=== PATIENT | male | born 1965 | race Caucasian/White ===

== ENCOUNTER 2020-01-13 08:49 | Outpatient (REF) | payer OTHER, SELFPAY ==
[2020-01-13 09:59] LABS: MANUAL DIFF FLAG NO
[2020-01-13 10:11] LABS: Basophils Percent Auto 0.6 % (0-2); Eosinophils Absolute Auto 0.1 X10*3/uL (0.0-0.4); Eosinophils Percent Auto 2.2 % (0-4); Hematocrit 40.9 % (42-52); Hemoglobin 14.2 g/dl (14.0-18.0); Imm Gran Abs Auto 0.01 X10*3/uL (0.00-0.03); Imm Gran Pct Auto 0.2 % (0.0-0.4); Lymphocytes Absolute Auto 1.9 X10*3/uL (1.2-4.9); Lymphocytes Percent Auto 38.2 % (20-40); Mean Corpuscular HGB Conc 34.7 g/dl (31.0-36.0); Mean Corpuscular Hemoglobin 32.2 pg (27.0-33.0); Mean Corpuscular Volume 92.7 fL (80-98); Mean Platelet Volume 10.6 fL (9.4-12.4); Monocytes Absolute Auto 0.5 X10*3/uL (0.1-1.2); Monocytes Percent Auto 9.6 % (2-11); Neutrophils Absolute Auto 2.4 X10*3/uL (2.0-8.3); Neutrophils Percent Auto 49.2 % (45-73); Platelet Count 229 X10*3/uL (160-400); Red Blood Count 4.41 X10*6/uL (4.60-5.80); Red Cell Distribution Width 11.3 % (11.0-16.0); White Blood Count 4.9 X10*3/uL (4.8-10.8)
[2020-01-13 10:23] LABS: Glucose Urine UA NEG (NEG); Leukocyte Esterase Urine NEG (NEG); Nitrite Urine NEG (NEG); Specific Gravity - Urine 1.025 (1.005-1.025); Urine Blood NEG (NEG); Urine Ketones NEG (NEG); Urine Protein NEG (NEG-TRACE)
[2020-01-13 10:30] LABS: Appearance Urine HAZY; Color Urine YELLOW; UACC Culture Trigger NO
[2020-01-13 10:45] LABS: Alanine Aminotransferase 28 U/L (0-40); Albumin Level 4.2 g/dL (3.5-5.0); Alkaline Phosphatase 55 U/L (39-117); Anion Gap 13 (12-20); Aspartate Amino Transferase 22 U/L (5-37); Bilirubin Total 0.9 mg/dL (0.0-1.0); Blood Urea Nitrogen 16 mg/dL (9-16); Calcium 8.9 mg/dL (8.4-10.2); Carbon Dioxide 24 mmol/L (22-29); Chloride 105 mmol/L (96-108); Cholesterol 160 mg/dL; Estimated Glomerular Filt Rate > 60; Glucose Fasting 106 mg/dL (60-99); HDL Cholesterol 46 mg/dL; LDL Cholesterol Calculated 96 mg/dl; Potassium 4.3 mmol/l (3.3-5.1); Sodium 138 mmol/L (135-145); Triglycerides 90 mg/dL
[2020-01-13 10:56] LABS: Creatinine Urine 378.57 mg/dL
[2020-01-13 11:12] LABS: TSH reflex Free T4 0.98 mIU/mL (0.32-4.0)
[2020-01-13 11:44] LABS: Prostate Specific Antigen Scr 1.12 ng/mL (<0.05-4.0)
[2020-01-13 12:01] LABS: Mucus Urine 3+ /LPF; RBC Urine 0 /HPF (0)
== END 2020-01-13 08:50 | disposition home or self-care (01) ==
LOC: HO.LAB 08:49
PROVIDERS: PCP Internal Medicine; Visit Provider Internal Medicine
DX: Z00.00 Encounter for general adult medical examination without abnormal findings (principal); I48.0 Paroxysmal atrial fibrillation; R73.01 Impaired fasting glucose; E78.5 Hyperlipidemia, unspecified; G47.33 Obstructive sleep apnea (adult) (pediatric)
CPT/HCPCS: 36415; 80053; 80061; 81001; 81003; 82043; 84153; 84443; 85025

== ENCOUNTER 2020-05-09 09:02 | Outpatient (REF) | payer OTHER, SELFPAY ==
[2020-05-09 10:09] LABS: MANUAL DIFF FLAG NO
[2020-05-09 10:18] LABS: Basophils Percent Auto 0.4 % (0-2); Eosinophils Absolute Auto 0.1 X10*3/uL (0.0-0.4); Eosinophils Percent Auto 2.1 % (0-4); Hematocrit 40.7 % (42-52); Imm Gran Abs Auto 0.02 X10*3/uL (0.00-0.03); Imm Gran Pct Auto 0.4 % (0.0-0.4); Lymphocytes Absolute Auto 1.9 X10*3/uL (1.2-4.9); Mean Corpuscular HGB Conc 34.4 g/dl (31.0-36.0); Mean Corpuscular Hemoglobin 31.9 pg (27.0-33.0); Mean Corpuscular Volume 92.7 fL (80-98); Mean Platelet Volume 10.1 fL (9.4-12.4); Monocytes Absolute Auto 0.5 X10*3/uL (0.1-1.2); Monocytes Percent Auto 8.4 % (2-11); Neutrophils Absolute Auto 2.8 X10*3/uL (2.0-8.3); Neutrophils Percent Auto 52.7 % (45-73); Platelet Count 235 X10*3/uL (160-400); Red Blood Count 4.39 X10*6/uL (4.60-5.80); Red Cell Distribution Width 11.7 % (11.0-16.0); White Blood Count 5.3 X10*3/uL (4.8-10.8)
[2020-05-09 10:39] LABS: Glucose Urine UA NEG (NEG); Leukocyte Esterase Urine NEG (NEG); Nitrite Urine NEG (NEG); Specific Gravity - Urine 1.025 (1.005-1.025); Urine Blood NEG (NEG); Urine Ketones NEG (NEG); Urine Protein NEG (NEG-TRACE)
[2020-05-09 10:40] LABS: Appearance Urine CLEAR; Color Urine YELLOW
[2020-05-09 10:41] LABS: Alanine Aminotransferase 33 U/L (0-40); Albumin Level 4.2 g/dL (3.5-5.0); Alkaline Phosphatase 52 U/L (39-117); Anion Gap 11 (12-20); Aspartate Amino Transferase 23 U/L (5-37); Bilirubin Total 0.7 mg/dL (0.0-1.0); Blood Urea Nitrogen 14 mg/dL (9-16); Calcium 8.4 mg/dL (8.4-10.2); Carbon Dioxide 26 mmol/L (22-29); Chloride 107 mmol/L (96-108); Cholesterol 168 mg/dL; Estimated Glomerular Filt Rate > 60; Glucose Fasting 105 mg/dL (60-99); HDL Cholesterol 44 mg/dL; LDL Cholesterol Calculated 109 mg/dl; Potassium 4.8 mmol/L (3.3-5.1); Sodium 139 mmol/L (135-145); Total Protein 6.9 g/dL (6.5-8.0); Triglycerides 75 mg/dL
[2020-05-09 11:03] LABS: TSH reflex Free T4 1.26 uIU/mL (0.32-4.0)
== END 2020-05-09 09:03 | disposition home or self-care (01) ==
LOC: HO.LAB 09:02
PROVIDERS: PCP Internal Medicine; Visit Provider Internal Medicine
DX: I48.0 Paroxysmal atrial fibrillation (principal); G47.33 Obstructive sleep apnea (adult) (pediatric); R73.01 Impaired fasting glucose; E78.00 Pure hypercholesterolemia, unspecified; E66.9 Obesity, unspecified
CPT/HCPCS: 36415; 80053; 80061; 81003; 84443; 85025

== ENCOUNTER → 2020-05-31 09:46 | Outpatient (BNVA) | payer OTHER, SELFPAY | PROVIDERS: PCP Internal Medicine; Visit Provider Internal Medicine Cardiovascular Disease | DX: I48.19 Other persistent atrial fibrillation (principal); G47.33 Obstructive sleep apnea (adult) (pediatric) | CPT/HCPCS: 93005 ==

== ENCOUNTER → 2020-07-19 09:26 | Outpatient (REF) | payer OTHER, SELFPAY ==
--- NOTE | 2020-07-19 09:28 | CA_ITS ---
Transthoracic Echocardiogram Patient (Last, First, Middle): Henok Coffey, Gender: Male Date of : 1965 Age: 55 Procedure Date: 07/19/2020 Procedure Type: Transthoracic Echocardiogram Location: OP Height: 177.8 cm Weight: 106.6 kg BSA: 2.24 m2 Heart Rate: bpm BP: 134 / 80 mmHg Helpdesk Administrator: Referring MD: Armando Barton MD Employment Attorney: Armando Barton MD Symptoms: I48.19 - Other persistent atrial fibrillation Study Quality: Fair ECG Rhythm: Atrial Fibrillation Conclusions: - 1. Normal LV systolic function with normal filling pressures 2. Mild biatrial enlargement 3. Normal cardiac valvular Doppler 4. Normal RV systolic pressure 5. No pericardial effusion Findings Procedure Information Contrast agent, definity, is being given per protocol without apparent complications. Left Ventricle Normal left ventricular size, thickness, and systolic function. The visually estimated ejection fraction is between 55-60%. Normal left ventricular filling pressures. Right Ventricle Mildly increased right ventricular cavity size. There is normal right ventricular systolic function. Atria The left atrium is mildly dilated. Interatrial shunt cannot be excluded. The right atrium is mildly dilated. Aortic Valve The aortic valve structure and function is likely normal. There is no aortic valve stenosis. There is no aortic valve regurgitation. Mitral Valve Likely normal mitral valve structure and function. There is trace mitral valve regurgitation. There is no mitral valve stenosis. Pulmonic Valve The pulmonic valve was not well visualized. Tricuspid Valve Likely normal tricuspid valve structure and function. There is trace tricuspid valve regurgitation. The right ventricular systolic pressure is normal. The right ventricular systolic pressure is 20 mmHg. There is no evidence of pulmonary hypertension. Great Vessels All visible segments of the aorta are normal in size. The pulmonary artery was not well visualized. Venous The inferior vena cava is normal in size and collapses greater than 50% with inspiration. Pericardium/Pleural There is no evidence of pericardial effusion. Prior Study Comparison No significant change compared to prior study dated: 03/02/2018. Measurements 2D Linear Measurements IVSd: 1.05 0.6-0.9/0.6-1.0 cm LVIDd: 5.07 3.9-5.3/4.2-5.9 cm LVIDd Index: 2.26 2.4-3.2/2.2-3.1 cm/m2 LVIDs: 3.12 2.0-3.6 cm LVPWd: 1.07 0.7-1.1 cm Ao Root: 3.30 2.1-3.5 cm LA Diam: 4.00 2.7-3.8/3.0-4.0 cm LAIDs Index: 1.79 1.5-2.3 cm/m2 LV Mass: 251.03 67-162/88-224 g LV Mass Index: 112.07 43-95/49-115 g/m2 LVOT Diam: 2.60 3.0+(-)1.3 cm 2D Systolic Function EF 4C: 45.50 >55% EF 2C: 58.70 >55% Mitral Valve MV Pk E: 0.84 MV Decel Time: 190.00 E'Lateral: 15.20 E'Medial: 14.00 E/E' Med: 6.00 E/E' Lat: 5.60 PHT: 56.00 MVA PHT: 3.93 Decel [place]: 4.44 Aortic Valve AoV Pk Willis: 0.99 AoV Mn Willis: 0.74 AoV VTI: 0.23 AoV Pk Grad: 4.00 Aov Mn Grad: 3.00 ABDON Cont.VTI: 3.27 LVOT LVOT Pk Willis: 0.71 LVOT Mn Willis: 0.45 LVOT VTI: 0.14 LVOT Pk Grad: 2.00 LVOT Mn Grad: 1.00 LVOT Diam: 2.60 LVOT Area: 5.31 Diastolic Function MV Pk E: 0.84 E'Medial: 14.00 E/E' Med: 6.00 E' Laterial: 15.20 E/E' Lat: 5.60 Tricuspid Valve TR Pk Willis: 2.07 TR Pk Grad: 17.00 RA Press: 3.00 RVSP: 20.00 Great Vessels Aorta Ao Root-2D: 3.30 2.0-3.7 cm Ao Asc: 3.60 2.1-3.4 cm Pulmonary Valve PV Pk Willis: 0.67 Peak PV Grad: 2.00 Updated in Other Vendor System with Status of Final Armando Barton MD electronically signed on 07/19/2020 2:22:03 PM with status of Final
== END ==
LOC: HO.CARD 09:26
PROVIDERS: Visit Provider Internal Medicine Cardiovascular Disease
DX: I48.19 Other persistent atrial fibrillation (principal)
CPT/HCPCS: 93306; Q9957

== ENCOUNTER 2020-10-05 08:23 | Outpatient (REF) | payer OTHER, SELFPAY ==
[2020-10-05 09:10] LABS: MANUAL DIFF FLAG NO
[2020-10-05 09:34] LABS: Basophils Percent Auto 0.4 % (0-2); Eosinophils Absolute Auto 0.1 X10*3/uL (0.0-0.4); Eosinophils Percent Auto 2.4 % (0-4); Hematocrit 39.9 % (42-52); Hemoglobin 13.7 g/dl (14.0-18.0); Imm Gran Abs Auto 0.01 X10*3/uL (0.00-0.03); Imm Gran Pct Auto 0.2 % (0.0-0.4); Lymphocytes Absolute Auto 1.7 X10*3/uL (1.2-4.9); Mean Corpuscular HGB Conc 34.3 g/dl (31.0-36.0); Mean Corpuscular Volume 93.2 fL (80-98); Mean Platelet Volume 10.4 fL (9.4-12.4); Monocytes Absolute Auto 0.5 X10*3/uL (0.1-1.2); Monocytes Percent Auto 9.1 % (2-11); Neutrophils Absolute Auto 2.8 X10*3/uL (2.0-8.3); Neutrophils Percent Auto 54.9 % (45-73); Platelet Count 225 X10*3/uL (160-400); Red Blood Count 4.28 X10*6/uL (4.60-5.80); Red Cell Distribution Width 11.9 % (11.0-16.0)
[2020-10-05 10:24] LABS: Glucose Urine UA NEG (NEG); Leukocyte Esterase Urine NEG (NEG); Nitrite Urine NEG (NEG); Specific Gravity - Urine >= 1.030 (1.005-1.025); Urine Blood NEG (NEG); Urine Ketones NEG (NEG); Urine Protein TRACE MG/DL (NEG-TRACE)
[2020-10-05 10:25] LABS: Alanine Aminotransferase 30 U/L (0-40); Albumin Level 4.1 g/dL (3.5-5.0); Alkaline Phosphatase 54 U/L (39-117); Anion Gap 12 (12-20); Aspartate Amino Transferase 22 U/L (5-37); Blood Urea Nitrogen 15 mg/dL (9-16); Calcium 9.1 mg/dL (8.4-10.2); Carbon Dioxide 26 mmol/L (22-29); Chloride 108 mmol/L (96-108); Cholesterol 144 mg/dL; Estimated Glomerular Filt Rate > 60; Glucose Fasting 118 mg/dL (60-99); HDL Cholesterol 40 mg/dL; LDL Cholesterol Calculated 89 mg/dl; Potassium 4.5 mmol/L (3.3-5.1); Sodium 141 mmol/L (135-145); Total Protein 6.9 g/dL (6.5-8.0); Triglycerides 77 mg/dL
[2020-10-05 10:28] LABS: Appearance Urine HAZY; Color Urine YELLOW
[2020-10-05 10:35] LABS: Thyroid Stimulating Hormone 1.04 uIU/mL (0.32-4.0)
[2020-10-05 10:36] LABS: TSH reflex Free T4 1.04 uIU/mL (0.32-4.0)
== END 2020-10-05 08:24 | disposition home or self-care (01) ==
LOC: HO.LAB 08:23
PROVIDERS: PCP Internal Medicine; Visit Provider Internal Medicine
DX: G47.33 Obstructive sleep apnea (adult) (pediatric) (principal); I48.0 Paroxysmal atrial fibrillation; E66.9 Obesity, unspecified; E78.00 Pure hypercholesterolemia, unspecified; I48.19 Other persistent atrial fibrillation; R73.01 Impaired fasting glucose
CPT/HCPCS: 36415; 80053; 80061; 81003; 84443; 85025

== ENCOUNTER 2021-04-08 15:15 | Outpatient (REF) | payer OTHER, SELFPAY ==
[2021-04-08 16:00] LABS: Binax Internal Control QC Valid; Binax Now Covid-19 Ag Negative (Negative)
== END 2021-04-08 15:16 | disposition home or self-care (01) ==
LOC: HO.LAB 15:15
PROVIDERS: Visit Provider Internal Medicine
DX: Z20.822 Contact with and (suspected) exposure to COVID-19 (principal)
CPT/HCPCS: C9803

== ENCOUNTER → 2021-04-22 09:45 | Outpatient (BNVA) | payer SELFPAY | PROVIDERS: PCP Internal Medicine; Visit Provider Physician Assistant Medical | DX: Z02.79 Encounter for issue of other medical certificate (principal) ==

== ENCOUNTER → 2021-06-05 09:40 | Outpatient (BNVA) | payer OTHER, SELFPAY | PROVIDERS: PCP Internal Medicine; Referring Provider Internal Medicine; Visit Provider Internal Medicine Cardiovascular Disease | DX: I48.19 Other persistent atrial fibrillation (principal); Z79.899 Other long term (current) drug therapy | CPT/HCPCS: 93005 ==

== ENCOUNTER 2021-06-07 08:41 | Outpatient (REF) | payer OTHER, SELFPAY ==
[2021-06-07 09:19] LABS: MANUAL DIFF FLAG NO
[2021-06-07 09:34] LABS: Basophils Percent Auto 0.4 % (0-2); Eosinophils Absolute Auto 0.1 X10*3/uL (0.0-0.4); Eosinophils Percent Auto 1.5 % (0-4); Hematocrit 40.4 % (42.0-52.0); Imm Gran Abs Auto 0.01 X10*3/uL (0.00-0.03); Imm Gran Pct Auto 0.2 % (0.0-0.4); Lymphocytes Percent Auto 38.1 % (20-40); Mean Corpuscular HGB Conc 34.7 g/dl (31.0-36.0); Mean Corpuscular Volume 92.2 fL (80.0-98.0); Monocytes Absolute Auto 0.5 X10*3/uL (0.1-1.2); Monocytes Percent Auto 8.9 % (2-11); Neutrophils Absolute Auto 2.7 x10*3/uL (2.0-8.3); Neutrophils Percent Auto 50.9 % (45-73); Platelet Count 203 X10*3/uL (160-400); Red Blood Count 4.38 X10*6/uL (4.60-5.80); Red Cell Distribution Width 11.9 % (11.0-16.0); White Blood Count 5.3 X10*3/uL (4.8-10.8)
[2021-06-07 09:36] LABS: Appearance Urine CLEAR; Color Urine YELLOW; Glucose Urine UA NEG (NEG); Leukocyte Esterase Urine NEG (NEG); Nitrite Urine NEG (NEG); PH 5.5 (5.0-8.0); Specific Gravity - Urine >= 1.030 (1.005-1.025); UACC Culture Trigger NO; Urine Blood NEG (NEG); Urine Ketones 5 MG/DL (NEG); Urine Protein 1+ MG/DL (NEG-TRACE)
[2021-06-07 09:56] LABS: Alanine Aminotransferase 30 U/L (0-40); Alkaline Phosphatase 54 U/L (39-117); Anion Gap 14 (12-20); Aspartate Amino Transferase 23 U/L (5-37); Blood Urea Nitrogen 15 mg/dL (9-16); Calcium 9.3 mg/dL (8.4-10.2); Carbon Dioxide 22 mmol/L (22-29); Chloride 107 mmol/L (96-108); Cholesterol 173 mg/dL; Estimated Glomerular Filt Rate > 60; Glucose Fasting 116 mg/dL (60-99); HDL Cholesterol 42 mg/dL; LDL Cholesterol Calculated 108 mg/dl; Potassium 4.5 mmol/L (3.3-5.1); Sodium 138 mmol/L (135-145); Triglycerides 118 mg/dL
[2021-06-07 10:19] LABS: TSH reflex Free T4 1.41 uIU/mL (0.32-4.0)
[2021-06-07 10:30] LABS: RBC Urine 0 /HPF (0)
[2021-06-07 10:31] LABS: Mucus Urine 1+ /LPF; Squamous Epithelial Cell Urine TRACE /LPF; WBC Urine 0-2 /HPF (0-4)
== END 2021-06-07 08:42 | disposition home or self-care (01) ==
LOC: HO.LAB 08:41
PROVIDERS: PCP Internal Medicine; Visit Provider Internal Medicine
DX: E78.00 Pure hypercholesterolemia, unspecified (principal); E55.9 Vitamin D deficiency, unspecified; I10 Essential (primary) hypertension
CPT/HCPCS: 36415; 80053; 80061; 81001; 82306; 84443; 85025

== ENCOUNTER 2021-10-03 08:40 | Outpatient (REF) | payer OTHER, SELFPAY ==
--- NOTE | ~2021-10-03 | XR_ITS ---
EXAMINATION: XR CHEST 2 VIEWS CLINICAL INFORMATION: Dyspnea of 2 months duration COMPARISON: Chest radiographs dated 03/23/2017. TECHNIQUE: Frontal and lateral views of the chest were obtained. FINDINGS: The heart, great vessels, pulmonary vasculature and mediastinum are normal. The lungs show no focal infiltrate, effusion or pneumothorax. There is no acute osseous abnormality. XR/XR chest 2V IMPRESSION: No active cardiopulmonary disease.
[2021-10-03 09:39] LABS: Estimated Average Glucose 120 mg/dL; Hemoglobin A1c % 5.8 %
[2021-10-03 09:42] LABS: Alanine Aminotransferase 33 U/L (0-40); Albumin Level 4.1 g/dL (3.5-5.0); Alkaline Phosphatase 59 U/L (39-117); Anion Gap 11 (12-20); Aspartate Amino Transferase 21 U/L (5-37); Bilirubin Total 0.9 mg/dL (0.0-1.0); Blood Urea Nitrogen 14 mg/dL (9-16); Calcium 8.8 mg/dL (8.4-10.2); Carbon Dioxide 26 mmol/L (22-29); Chloride 108 mmol/L (96-108); Cholesterol 161 mg/dL; Estimated Glomerular Filt Rate > 60; Glucose Fasting 116 mg/dL (60-99); HDL Cholesterol 43 mg/dL; LDL Cholesterol Calculated 100 mg/dl; Potassium 4.6 mmol/L (3.3-5.1); Sodium 140 mmol/L (135-145); Triglycerides 94 mg/dL
== END 2021-10-03 08:41 | disposition home or self-care (01) ==
LOC: HO.XRAY 08:40
PROVIDERS: PCP Internal Medicine; Visit Provider Internal Medicine
DX: R06.00 Dyspnea, unspecified (principal); R73.01 Impaired fasting glucose; E78.00 Pure hypercholesterolemia, unspecified
CPT/HCPCS: 36415; 71046; 80053; 80061; 83036

== ENCOUNTER 2021-10-27 15:19 | Outpatient (REF) | payer OTHER, SELFPAY ==
--- NOTE | 2021-10-27 17:25 | PFT_ITS ---
INDICATION: Dyspnea. SPIROMETRY: FEV1 to FVC of 82% with an FEV1 of 3.23 L, which is 88% predicted. An FVC of 3.91 L, which is 81% predicted. No significant response to bronchodilators noted. Maximum voluntary ventilation 85% predicted. LUNG VOLUMES: Total lung capacity 79% predicted with an expiratory reserve volume of 57% predicted. DIFFUSION CAPACITY: DLCO 67% predicted, although correcting to 85% when correcting for the alveolar volume. COMPARISONS: None. INTERPRETATION: No obstructive ventilatory defects. No significant response to bronchodilators noted. Normal maximum voluntary ventilation. However, the patient does have a mild restrictive ventilatory defect suggesting mild restrictive lung disease. Partly explained by the elevated BMI and the decrease in the expiratory reserve volume. Although interstitial lung conditions and/or neuromuscular conditions cannot be ruled out. The patient also has a mild diffusion impairment, although this corrects to normal. Also when correcting for the alveolar volume and the body habitus. Clinical correlation warranted. MD ROJELIO Hill/ERICH / [phone]
== END 2021-10-27 15:20 | disposition home or self-care (01) ==
LOC: HO.RESP 15:19
PROVIDERS: PCP Internal Medicine; Visit Provider Internal Medicine
DX: R06.00 Dyspnea, unspecified (principal)
CPT/HCPCS: 94060; 94727; 94729

== ENCOUNTER 2021-11-19 12:30 | Outpatient (REF) | payer OTHER, SELFPAY | END 2021-11-19 12:31 | disposition home or self-care (01) | LOC: HO.LAB 12:30 | PROVIDERS: PCP Internal Medicine; Visit Provider Nurse Practitioner | DX: Z13.89 Encounter for screening for other disorder (principal) ==

== ENCOUNTER 2021-11-22 10:14 | Outpatient (REF) | payer OTHER, SELFPAY ==
[2021-11-29 20:22] LABS: Pancreatic Elastase-1 141 mcg/g
== END 2021-11-22 10:15 | disposition home or self-care (01) ==
LOC: HO.LNP 10:14
PROVIDERS: Visit Provider Nurse Practitioner
DX: R14.0 Abdominal distension (gaseous) (principal)
CPT/HCPCS: 82656; 87338

== ENCOUNTER 2022-01-02 08:47 | Outpatient (REF) | payer OTHER, SELFPAY ==
--- NOTE | ~2022-01-02 | FL_ITS ---
EXAMINATION: FL BARIUM SWALLOW CLINICAL INFORMATION: Bloating COMPARISON: None TECHNIQUE: Barium swallow examination is performed using fluoroscopic evaluation in addition to multiple fluoroscopic spot views. The patient is imaged both upright and prone and using both thick and thin sulfate along with effervescent granules. Barium tablet was also administered. Fluoroscopy time: 0.7 minutes DAP: 6 Gycm2 Images: 44 FINDINGS: There is minimal laryngeal penetration. No aspiration or retention. The swallowing mechanism is otherwise normal. There is a small hiatal hernia. There is mild gastroesophageal reflux. No mass or stricture or evidence of esophagitis is seen. Barium tablet passed freely into the stomach. FL/FL barium swallow IMPRESSION: Minimal laryngeal penetration when the patient swallows. No aspiration. Small hiatal hernia and gastroesophageal reflux.
== END 2022-01-02 08:48 | disposition home or self-care (01) ==
LOC: HO.XRAY 08:47
PROVIDERS: Visit Provider Nurse Practitioner
DX: Z01.818 Encounter for other preprocedural examination (principal); K21.9 Gastro-esophageal reflux disease without esophagitis
CPT/HCPCS: 74220

== ENCOUNTER 2022-01-24 08:54 | Outpatient (REF) | payer OTHER, SELFPAY ==
[2022-01-24 09:12] LABS: MANUAL DIFF FLAG NO
[2022-01-24 09:50] LABS: Basophils Percent Auto 0.5 % (0-2); Eosinophils Absolute Auto 0.1 X10*3/uL (0.0-0.4); Eosinophils Percent Auto 2.3 % (0-4); Hemoglobin 14.4 g/dl (14.0-18.0); Imm Gran Abs Auto 0.02 X10*3/uL (0.00-0.03); Imm Gran Pct Auto 0.4 % (0.0-0.4); Lymphocytes Absolute Auto 2.2 X10*3/uL (1.2-4.9); Lymphocytes Percent Auto 38.5 % (20-40); Mean Corpuscular HGB Conc 34.3 g/dl (31.0-36.0); Mean Corpuscular Hemoglobin 31.6 pg (27.0-33.0); Mean Corpuscular Volume 92.1 fL (80.0-98.0); Mean Platelet Volume 10.1 fL (9.4-12.4); Monocytes Absolute Auto 0.5 X10*3/uL (0.1-1.2); Monocytes Percent Auto 8.7 % (2-11); Neutrophils Absolute Auto 2.8 x10*3/uL (2.0-8.3); Neutrophils Percent Auto 49.6 % (45-73); Platelet Count 234 X10*3/uL (160-400); Red Blood Count 4.56 X10*6/uL (4.60-5.80); Red Cell Distribution Width 11.9 % (11.0-16.0); White Blood Count 5.6 X10*3/uL (4.8-10.8)
[2022-01-24 09:57] LABS: Estimated Average Glucose 120 mg/dL; Hemoglobin A1c % 5.8 %
[2022-01-24 10:33] LABS: Appearance Urine Clear; Color Urine Dark Yellow; Glucose Urine UA Negative (Negative); Leukocyte Esterase Urine Trace (Negative); Nitrite Urine Negative (Negative); PH 5.5 (5.0-9.0); Specific Gravity - Urine >= 1.030 (1.005-1.025); UMIC TRIGGER UACC YES; Urine Blood Negative (Negative); Urine Ketones Trace mg/dL (Negative); Urine Protein 30 (1+) mg/dL (Neg-Trace)
[2022-01-24 10:38] LABS: Bacteria Urine None Seen (None Seen); RBC Urine 0-2 /HPF (0-2); Squamous Epithelial Cell Urine 0-2 /HPF (0-2); WBC Urine 0-5 /HPF (0-5)
[2022-01-24 10:51] LABS: Alanine Aminotransferase 35 U/L (0-40); Albumin Level 4.3 g/dL (3.5-5.0); Alkaline Phosphatase 62 U/L (39-117); Anion Gap 18 (12-20); Aspartate Amino Transferase 23 U/L (5-37); Blood Urea Nitrogen 17 mg/dL (9-16); Calcium 9.3 mg/dL (8.4-10.2); Carbon Dioxide 21 mmol/L (22-29); Chloride 106 mmol/L (96-108); Cholesterol 191 mg/dL; Estimated Glomerular Filt Rate > 60; Glucose Fasting 115 mg/dL (60-99); HDL Cholesterol 44 mg/dL; LDL Cholesterol Calculated 125 mg/dl; Potassium 4.1 mmol/L (3.3-5.1); Sodium 141 mmol/L (135-145); Total Protein 7.5 g/dL (6.5-8.0); Triglycerides 110 mg/dL
[2022-01-24 11:01] LABS: TSH reflex Free T4 1.44 uIU/mL (0.32-4.0)
== END 2022-01-24 08:55 | disposition home or self-care (01) ==
LOC: HO.LAB 08:54
PROVIDERS: PCP Internal Medicine; Visit Provider Internal Medicine
DX: E78.00 Pure hypercholesterolemia, unspecified (principal); E55.9 Vitamin D deficiency, unspecified; E11.9 Type 2 diabetes mellitus without complications; I10 Essential (primary) hypertension
CPT/HCPCS: 36415; 80053; 80061; 81001; 82306; 83036; 84443; 85025

== ENCOUNTER 2022-03-24 12:27 | Outpatient (REF) | payer OTHER, SELFPAY ==
--- NOTE | ~2022-03-24 | US_ITS ---
EXAMINATION: ULTRASOUND EXTREMITY NONVASCULAR CLINICAL INFORMATION: Lesion right upper back. COMPARISON: None TECHNIQUE: Limited ultrasound imaging to the right upper back was performed. FINDINGS: There is a slightly irregular shaped solid mass in the right upper back measuring 1.5 x 2.4 x 3.0 cm. There is minimal color flow visualized suggestive of vascularity. It has same echo pattern as the adjacent fat. US/US extremity nonvascular IMPRESSION: Solid most likely lipoma measuring 3.0 cm. A complex cyst should be considered in the differential diagnosis, however unlikely.
== END 2022-03-24 12:28 | disposition home or self-care (01) ==
LOC: HO.US 12:27
PROVIDERS: PCP Internal Medicine; Visit Provider Dermatology
DX: R22.2 Localized swelling, mass and lump, trunk (principal)
CPT/HCPCS: 76882

== ENCOUNTER 2022-04-17 09:50 | Day surgery (SDC) | payer OTHER, SELFPAY ==
[2022-04-13 09:03] VITALS: BMI 34.8
--- NOTE | 2022-04-16 10:37 | P.CONAN_ITS ---
Documented by User: Kaci Sutton NP 04/16/22 10:40 HPI - Anesthesia Eval Consult details Narrative: 56yo M for Upper Endoscopy and Colonoscopy afib, no OAC PMFSH Active Problems Active Problems: All Active Problems (Updated 01/21/22 @ 02:36 by Henok Cornejo MD) Lipoma (Acute) Abdominal bloating (Acute) Pre-op examination (Acute) Cervical spondylosis (Acute) Vitamin D deficiency (Acute) Colon cancer screening (Acute) Dyspnea (Acute) Abdominal bloating (Acute) GERD (gastroesophageal reflux disease) (Acute) Obesity (BMI 30-39.9) (Acute) Persistent atrial fibrillation (Acute) Carpal tunnel syndrome (Acute) Osteoarthritis of knees, bilateral (Acute) Obstructive sleep apnea (Acute) Pure hypercholesterolemia (Acute) Impaired fasting glucose (Acute) Past Medical History Medical History Carpal tunnel syndrome Impaired fasting glucose Obesity (BMI 30-39.9) Obstructive sleep apnea Osteoarthritis of knees, bilateral Persistent atrial fibrillation Pure hypercholesterolemia Vitamin D deficiency Family History Family History Father CVD (cardiovascular disease) Cancer Mother Medical history unknown Surgical History Surgical History History of surgery Social History Social History Housing: House Alcohol intake: current Alcohol intake frequency: holidays/special occasions only Patient Tobacco Use Status: Never used Tobacco e-Cigarette/Vaping Use: Never Used Second Hand Smoke Exposure: Yes Use of substances other than those prescribed or required for medical reasons: No Are you DNR?: No Advance Directives: No Advance Directives Information Provided: Yes service: No Current occupational status: employed 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 Cognitive needs: No Hearing needs: No Vision needs: No Meds Allergies Allergy/AdvReac Type Severity Reaction Status Date / Time codeine [CODEINE] Allergy Severe HIVES Verified 01/20/22 23:36 ibuprofen [From MOTRIN] Allergy Severe HIVES Verified 01/20/22 23:36 Exam Exam Date and Time: April 16, 2022 1037 Height,Weight and Vital Signs: Height 5 ft 10 in Weight 110.223 kg Pertinent Lab Results Pertinent Lab Results: Laboratory Tests 01/24/22 01/24/22 09:11 09:11 WBC 5.6 Hgb 14.4 Hct 42.0 Plt Count 234 Sodium 141 Potassium 4.1 Chloride 106 Carbon Dioxide 21 L BUN 17 H Creatinine 1.07 Narrative Narrative: EKG 05/2021 atrial fibrillation 77 beats per minute otherwise no significant changes PFT 10/2021 INTERPRETATION:? No obstructive ventilatory defects.? No significant response to bronchodilators noted.? Normal maximum voluntary ventilation.? However, the patient does have a mild restrictive ventilatory defect suggesting mild restrictive lung disease. Partly explained by the elevated BMI and the decrease in the expiratory reserve volume.? Although interstitial lung conditions and/or neuromuscular conditions cannot be ruled out.? The patient also has a mild diffusion impairment, although this corrects to normal.? Also when correcting for the alveolar volume and the body habitus.? Clinical correlation warranted. Assessment and Plan Assessment Anesthesia Assessment: Chart Reviewed Documented by User: Lory Mae MD 04/17/22 11:10 [facility] Past Medical History Medical History Carpal tunnel syndrome Impaired fasting glucose Obesity (BMI 30-39.9) Obstructive sleep apnea Osteoarthritis of knees, bilateral Persistent atrial fibrillation Pure hypercholesterolemia Vitamin D deficiency Family History Family History Father CVD (cardiovascular disease) Cancer Mother Medical history unknown Family history of problems with anesthesia: No Surgical History Surgical History History of surgery History of Problems with Anesthesia: No Social History Social History Housing: House Alcohol intake: current Alcohol intake frequency: holidays/special occasions only Patient Tobacco Use Status: Never used Tobacco e-Cigarette/Vaping Use: Never Used Second Hand Smoke Exposure: Yes Use of substances other than those prescribed or required for medical reasons: No Are you DNR?: No Advance Directives: No Advance Directives Information Provided: Yes service: No Current occupational status: employed Current occupation: [employer] Cognitive needs: No Hearing needs: No Vision needs: No Meds Allergies Allergy/AdvReac Type Severity Reaction Status Date / Time codeine [CODEINE] Allergy Severe HIVES Verified 01/20/22 23:36 ibuprofen [From MOTRIN] Allergy Severe HIVES Verified 01/20/22 23:36 Exam Airway Mallampati Class: III TM Dist: >3cm Neck ROM: Full Heart: rrr Lungs: CTA Assessment and Plan Assessment Anesthesia Assessment: Anesthesia Plan Discussed Final Anesthetic Review Family History of Problems with Anesthesia: No History of Problems with Anesthesia: No NPO: Yes ASA Class: III Final Preanesthetic Review: No Changes in Pt Med Stat, Meds/Allgs Chart Reviewed, Consent Obtained/Reviewed and Anes Risks/Benef Reviewed Patient Risk: Intermediate Procedure Risk: Intermediate Anesthetic Plan Anesthetic Plan: MAC: Disposition: Standard PACU
--- NOTE | 2022-04-17 10:31 | MHC.SHP ---
Pre-Procedural Eval Section A Date of Service: 04/17/22 The patient is an INPATIENT: No The History & Physical has been completed within 30 days and I have reviewed it.: No Section B Chief Complaint: screening, GERD, bloating Relevant Family History (Specify if Yes): No Relevant Social History: None Present Medications: see Short Stay Collaborative assessment Medical History: Significant History (Carpal tunnel syndrome Impaired fasting glucose Obesity (BMI 30-39.9) Obstructive sleep apnea Osteoarthritis of knees, bilateral Persistent atrial fibrillation Pure hypercholesterolemia Vitamin D deficiency) History of Previous Operations: Relevant previous surgery/procedure and date(s) (Removal of skin cancer lesion) Allergies: Allergies Allergy/AdvReac Type Severity Reaction Status Date / Time codeine [CODEINE] Allergy Severe HIVES Verified 01/20/22 23:36 ibuprofen [From MOTRIN] Allergy Severe HIVES Verified 01/20/22 23:36 Review of Systems Sugical H&P ROS: Negative: Constitution, Cardiovascular and Respiratory and Yes, Specify: Gastrointestinal (GERD) Exam Surgical H&P Exam: Normal: Heart, Normal: Lungs, Normal: Extremities and Normal: Abdomen Plan Diagnosis/Plan: Unchanged I have reviewed the history and physical and performed a pertinent physical examination on my patient. No changes have occurred unless specified. Time Spent With Patient Time: Total time managing care of this patient today ____ minutes.
[2022-04-17 10:36] VITALS: BMI 34.7
[2022-04-17 10:41] VITALS: BP 137/85; PULSE 83; RESP 18; TEMP 36.8; O2SAT 97; BMI 34.7
[2022-04-17] MEDS: Lactated Ringers 1,000 ML 100 ML IVCONT (11:05)
--- NOTE | 2022-04-17 11:51 | PM.OP ---
Brief Operative Note Date of Service: 04/17/22 Pre-op diagnosis: Colon cancer screening (1st colonoscopy), GERD with acid brash and bloating after eating, passes gas and burps.? Post-op diagnosis: other (GERD, ESOPHAGEAL NODULE, GASTRITIS COLON POLYPS, DIVERTICULOSIS, HEMORRHOIDS) Procedure: EGD WITH BIOPSIES COLONOSCOPY TILL CECUM WITH BIOPSIES AND SNARE POLYPECTOMY Surgeon: Karla Sidhu MD Anesthesia: MAC Was an Unmanned Aircraft Systems Roboticist used for this Procedure?: Yes Unmanned Aircraft Systems Roboticist: Fransisca Stoll Estimated blood loss (mL): 0 Pathology: other ( A. small bowel bxs, R/O celiac B. gastric antrum bxs, R/O H. pylori C. esophageal nodule bxs @ 20 cms D. ascending colon polyp E. sigmoid polyp F. rectal polyps (2)) Condition: stable Disposition: PACU
--- NOTE | 2022-04-17 11:52 | W.PM.OPN ---
Operative Note Operative Note Date of Service: 04/17/22 Narrative: Pre-op diagnosis: Colon cancer screening (1st colonoscopy), GERD with acid brash and bloating after eating, passes gas and burps.? Post-op diagnosis:?other (GERD, ESOPHAGEAL NODULE, GASTRITIS COLON POLYPS, DIVERTICULOSIS, HEMORRHOIDS) Surgeon: Karla Sidhu MD Anesthesia:?MAC FLEXIBLE TRANSORAL UPPER GASTROINTESTINAL ENDOSCOPY WITH BIOPSIES AND COLONOSCOPY TILL CECUM WITH BIOPSIES AND SNARE POLYPECTOMY UPPER ENDOSCOPY Consent: Indications for the procedure and potential complications of bleeding, perforation, reaction to medications and missed diagnosis were discussed with the patient and informed consent was obtained. Instrument: Olympus GIF H 190 mid size upper endoscope Monitoring: Vital signs and clinical assessment, continuous EKG monitoring, Pulse oximetry, Carbon Dioxide monitoring and blood pressure monitoring were done throughout the procedure. Procedure: The patient was placed in the left lateral decubitis position and pre-procedure medications were administered and a bite block was placed. The endoscope was inserted into the mouth and advanced under direct vision to the third part of duodenum. A careful inspection was made as the upper endoscope was withdrawn including a retroflexed examination of the proximal stomach; Findings and interventions are described below. Findings: Larynx: Normal Esophagus: An 8 to 10 mm benign appearing nodule in the proximal esophagus at 20 cms - biopsied. GE junction at 40 cms. No esophagitis or Genao's. Stomach: Mild gastric erythema. Biopsies were obtained. Grade 2 flap valve on retroflexed examination of the cardia. Duodenum: Normal bulb and descending duodenum. Biopsies were obtained from 3rd part of duodenum to check for celiac sprue. Intervention: Biopsies as noted above COLONOSCOPY PROCEDURE NOTE Consent: Indications for the procedure and potential complications of bleeding, perforation, reaction to medications and missed diagnosis were discussed with the patient and informed consent was obtained. Instrument: Olympus PCF H 190 L variable stiffness pediatric colonoscope Monitoring: Vital signs and clinical assessment, intermittent blood pressure monitoring, continuous EKG monitoring, Pulse oximetry and Carbon Dioxide monitoring were done throughout the procedure. Colon withdrawl time was 18 minutes. Procedure: The patient was placed in the left lateral decubitis position and pre-procedure medications were administered. After a digital rectal examination of the ano-rectum, the video colonoscope was inserted into the rectum and advanced through the colon to the cecum. The colonoscope was slowly withdrawn in a retrograde panoramic fashion and the colon mucosa was carefully examined including a retroflexed view of the rectum. Findings and interventions are described below. Procedure Difficulty: : Without difficulty Findings: Terminal Ileum: Not evaluated Cecum: Normal Ascending Colon: An 8 to 10 mm sessile polyp - removed with a cold bx Transverse Colon: Normal Descending Colon: Moderate diverticulosis Sigmoid Colon: Two 8 to 10 mm sessile polyps - removed with a cold biopsy and cold snare. Moderate diverticulosis Rectum: Two 8 to 10 mm sessile polyps removed with a cold snare.l Ano-rectum: Moderate internal hemorrhoids Colon preparation: Excellent Impression and Post Procedure Diagnosis: Endoscopy Findings: ESOPHAGUS: An 8 to 10 mm benign appearing nodule in the proximal esophagus at 20 cms - biopsied. GE junction at 40 cms. No esophagitis or Genao's. STOMACH: Mild antral gastritis. DUODENUM: Normal - biopsied to check for celiac sprue Colonoscopy Findings: Five medium sized polyps removed Moderate diverticulosis seen in the left colon Moderate hemorrhoids on retroflexed exam. Plan: Await pathology results Patient has an appointment on 05/01/22 in the [facility] with Arcelia Allison NP. Repeat Colonoscopy interval based on path results - in 3-5 years if polyps are adenomatous and 10 years if polyps are hyperplastic. Above findings were reviewed with the patient and GERD, colon polyps and diverticulosis handouts were given in the discharge area.
[2022-04-17 13:08] VITALS: BP 114/73; PULSE 88; RESP 12; TEMP 36.8; O2SAT 98
[2022-04-17 13:23] VITALS: BP 135/95; PULSE 79; RESP 16; O2SAT 98
[2022-04-17 13:38] VITALS: BP 158/87; PULSE 72; RESP 18; TEMP 36.2; O2SAT 96
== END 2022-04-17 14:05 | disposition home or self-care (01) ==
PROVIDERS: PCP Internal Medicine; Visit Provider Internal Medicine Gastroenterology
PROC: (CPT 45385; principal; 2022-04-17 11:20)
DX: Z12.11 Encounter for screening for malignant neoplasm of colon (principal); D12.2 Benign neoplasm of ascending colon; D12.5 Benign neoplasm of sigmoid colon; K62.1 Rectal polyp; K57.30 Diverticulosis of large intestine without perforation or abscess without bleeding; K64.8 Other hemorrhoids; R14.0 Abdominal distension (gaseous); K21.9 Gastro-esophageal reflux disease without esophagitis; K22.81 Esophageal polyp; K29.70 Gastritis, unspecified, without bleeding; G47.33 Obstructive sleep apnea (adult) (pediatric)
CPT/HCPCS: 45385; 45380; 43239; 88305; 88342

== ENCOUNTER 2022-05-02 09:08 | Outpatient (REF) | payer OTHER, SELFPAY ==
[2022-05-02 09:31] LABS: MANUAL DIFF FLAG NO
[2022-05-02 10:37] LABS: Basophils Percent Auto 0.5 % (0-2); Eosinophils Absolute Auto 0.1 X10*3/uL (0.0-0.4); Eosinophils Percent Auto 2.1 % (0-4); Estimated Average Glucose 120 mg/dL; Hematocrit 42.2 % (42.0-52.0); Hemoglobin 14.4 g/dl (14.0-18.0); Hemoglobin A1c % 5.8 %; Imm Gran Abs Auto 0.02 X10*3/uL (0.00-0.03); Imm Gran Pct Auto 0.3 % (0.0-0.4); Lymphocytes Absolute Auto 1.8 X10*3/uL (1.2-4.9); Lymphocytes Percent Auto 30.3 % (20-40); Mean Corpuscular HGB Conc 34.1 g/dl (31.0-36.0); Mean Corpuscular Hemoglobin 31.4 pg (27.0-33.0); Mean Corpuscular Volume 92.1 fL (80.0-98.0); Mean Platelet Volume 10.2 fL (9.4-12.4); Monocytes Absolute Auto 0.5 X10*3/uL (0.1-1.2); Monocytes Percent Auto 8.3 % (2-11); Neutrophils Absolute Auto 3.4 x10*3/uL (2.0-8.3); Neutrophils Percent Auto 58.5 % (45-73); Platelet Count 246 X10*3/uL (160-400); Red Blood Count 4.58 X10*6/uL (4.60-5.80); Red Cell Distribution Width 11.8 % (11.0-16.0); White Blood Count 5.8 X10*3/uL (4.8-10.8)
[2022-05-02 10:40] LABS: Appearance Urine Clear; Color Urine Dark Yellow; Glucose Urine UA Negative (Negative); Leukocyte Esterase Urine Trace (Negative); Nitrite Urine Negative (Negative); PH 5.5 (5.0-9.0); Specific Gravity - Urine 1.025 (1.005-1.025); UMIC TRIGGER UACC YES; Urine Blood Negative (Negative); Urine Ketones Trace mg/dL (Negative); Urine Protein 30 (1+) mg/dL (Neg-Trace)
[2022-05-02 10:47] LABS: Bacteria Urine None Seen (None Seen); RBC Urine 0-2 /HPF (0-2); Squamous Epithelial Cell Urine 0-2 /HPF (0-2); WBC Urine 0-5 /HPF (0-5)
[2022-05-02 11:22] LABS: Alanine Aminotransferase 29 U/L (0-40); Albumin Level 4.2 g/dL (3.5-5.0); Alkaline Phosphatase 60 U/L (39-117); Anion Gap 16 (12-20); Aspartate Amino Transferase 25 U/L (5-37); Bilirubin Total 1.2 mg/dL (0.0-1.0); Blood Urea Nitrogen 13 mg/dL (9-16); Calcium 9.5 mg/dL (8.4-10.2); Carbon Dioxide 22 mmol/L (22-29); Chloride 105 mmol/L (96-108); Cholesterol 200 mg/dL; Estimated Glomerular Filt Rate > 60; Glucose Fasting 107 mg/dL (60-99); HDL Cholesterol 47 mg/dL; LDL Cholesterol Calculated 130 mg/dl; Potassium 4.8 mmol/L (3.3-5.1); Sodium 138 mmol/L (135-145); Total Protein 7.2 g/dL (6.5-8.0); Triglycerides 115 mg/dL
[2022-05-02 11:30] LABS: TSH reflex Free T4 1.22 uIU/mL (0.32-4.0); Vitamin D 25-OH Total 24.8 ng/mL (>30)
== END 2022-05-02 09:09 | disposition home or self-care (01) ==
LOC: HO.LAB 09:08
PROVIDERS: PCP Internal Medicine; Visit Provider Internal Medicine
DX: E55.9 Vitamin D deficiency, unspecified (principal); I10 Essential (primary) hypertension; R73.01 Impaired fasting glucose; E78.00 Pure hypercholesterolemia, unspecified
CPT/HCPCS: 36415; 80053; 80061; 81001; 82306; 83036; 84443; 85025

== ENCOUNTER → 2022-05-12 16:05 | Outpatient (BNVA) | payer OTHER, SELFPAY | PROVIDERS: PCP Internal Medicine; Visit Provider Nurse Practitioner | DX: Z13.89 Encounter for screening for other disorder (principal) ==

== ENCOUNTER → 2022-06-01 15:30 | Outpatient (REF) | payer OTHER, SELFPAY ==
--- NOTE | 2022-06-01 15:33 | CA_ITS ---
Transthoracic Echocardiogram Patient (Last, First, Middle): Henok Coffey, Gender: Male Date of : 1965 Age: 57 Procedure Date: 06/01/2022 Procedure Type: Transthoracic Echocardiogram Location: OP Height: 177.8 cm Weight: 110.22 kg BSA: 2.27 m2 Heart Rate: 57 bpm BP: 130 / 80 mmHg Berry Grower: MYKE Referring MD: Armando Barton MD Symptoms: I48.19 - Other persistent atrial fibrillation Study Quality: Adequate/Contrast ECG Rhythm: Atrial Fibrillation Conclusions: - The left ventricular systolic function is normal. The calculated ejection fraction is 61% by biplane method. - No obvious valvular pathology seen on this study. Findings Procedure Information Contrast agent, definity, is being given per protocol without apparent complications. Left Ventricle Normal left ventricular cavity size. The left ventricular systolic function is normal. The calculated ejection fraction is 61% by biplane method. There is no evidence of regional wall motion abnormalities. Diastolic function is indeterminate on the basis of available data. There is mild septal asymmetric hypertrophy. Right Ventricle Normal right ventricular cavity size and systolic function. Atria Both atria are normal in size. Aortic Valve There is mild calcification of the aortic valve. There is no aortic valve stenosis. There is no aortic valve regurgitation. Mitral Valve The mitral valve appears normal. There is no mitral valve regurgitation. There is no mitral valve stenosis. Pulmonic Valve The pulmonic valve is likely normal. Tricuspid Valve There is no tricuspid valve regurgitation. Tricuspid regurgitation envelope is inadequate for calculation of right ventricular systolic pressure. Great Vessels The asc aorta is normal in size. Venous The inferior vena cava is normal in size and collapses greater than 50% with inspiration. Pericardium/Pleural There is no evidence of pericardial effusion. Prior Study Comparison No significant change compared to prior study dated: 07/19/2020. Recommendations, Care & Conclusions No obvious valvular pathology seen on this study. Measurements 2D Linear Measurements IVSd: 1.06 0.6-0.9/0.6-1.0 cm LVIDd: 4.51 3.9-5.3/4.2-5.9 cm LVIDd Index: 1.99 2.4-3.2/2.2-3.1 cm/m2 LVIDs: 2.17 2.0-3.6 cm LVPWd: 0.97 0.7-1.1 cm LA Diam: 4.00 2.7-3.8/3.0-4.0 cm LAIDs Index: 1.76 1.5-2.3 cm/m2 LV Mass: 194.85 67-162/88-224 g LV Mass Index: 85.83 43-95/49-115 g/m2 LVOT Diam: 2.10 3.0+(-)1.3 cm 2D Systolic Function EF 4C: 66.80 >55% EF 2C: 56.20 >55% EF BiP: 61.20 >55% Mitral Valve MV Pk E: 1.03 MV Decel Time: 120.00 E'Lateral: 16.10 E'Medial: 11.00 E/E' Med: 9.40 E/E' Lat: 6.40 PHT: 35.00 MVA PHT: 6.29 Decel [place]: 8.59 Aortic Valve AoV Pk Willis: 0.99 AoV Mn Willis: 0.70 AoV VTI: 0.21 AoV Pk Grad: 4.00 Aov Mn Grad: 2.00 ABDON Cont.VTI: 2.60 LVOT LVOT Pk Willis: 0.72 LVOT Mn Willis: 0.54 LVOT VTI: 0.16 LVOT Pk Grad: 2.00 LVOT Mn Grad: 1.00 LVOT Diam: 2.10 LVOT Area: 3.46 Diastolic Function MV Pk E: 1.03 E'Medial: 11.00 E/E' Med: 9.40 E' Laterial: 16.10 E/E' Lat: 6.40 Right Ventricle TAPSE (mm): 24.80 TVS' Willis: 10.20 Tricuspid Valve RA Press: 3.00 Great Vessels Aorta Sinus of Valsalva: 4.00 2.0-3.5 cm Ao Asc: 3.40 2.1-3.4 cm Updated in Other Vendor System with Status of Final Arya Trinidad MD electronically signed on 06/01/2022 5:26:12 PM with status of Final
== END ==
LOC: HO.CARD 15:30
PROVIDERS: PCP Internal Medicine; Visit Provider Internal Medicine Cardiovascular Disease
DX: I48.19 Other persistent atrial fibrillation (principal)
CPT/HCPCS: 93306; Q9957

== ENCOUNTER → 2022-07-07 16:03 | Outpatient (BNVA) | payer OTHER, SELFPAY | PROVIDERS: PCP Internal Medicine; Visit Provider Nurse Practitioner | DX: Z13.89 Encounter for screening for other disorder (principal) ==

== ENCOUNTER → 2022-07-09 15:15 | Outpatient (BNVA) | payer OTHER, SELFPAY | PROVIDERS: PCP Internal Medicine; Referring Provider Internal Medicine; Visit Provider Internal Medicine Cardiovascular Disease | DX: I48.19 Other persistent atrial fibrillation (principal) | CPT/HCPCS: 93005 ==

== ENCOUNTER 2022-07-25 08:58 | Outpatient (REF) | payer OTHER, SELFPAY ==
[2022-07-25 10:14] LABS: Alanine Aminotransferase 30 U/L (0-40); Alkaline Phosphatase 59 U/L (39-117); Anion Gap 12 (12-20); Aspartate Amino Transferase 21 U/L (5-37); Bilirubin Total 0.9 mg/dL (0.0-1.0); Blood Urea Nitrogen 16 mg/dL (9-16); Calcium 8.9 mg/dL (8.4-10.2); Carbon Dioxide 24 mmol/L (22-29); Chloride 108 mmol/L (96-108); Cholesterol 165 mg/dL; Estimated Glomerular Filt Rate > 60; Glucose Fasting 111 mg/dL (60-99); HDL Cholesterol 40 mg/dL; LDL Cholesterol Calculated 107 mg/dl; Potassium 4.3 mmol/L (3.3-5.1); Sodium 140 mmol/L (135-145); Total Protein 6.7 g/dL (6.5-8.0); Triglycerides 90 mg/dL
[2022-07-25 10:19] LABS: Appearance Urine Clear; Color Urine Dark Yellow; Glucose Urine UA Negative (Negative); Leukocyte Esterase Urine Negative (Negative); Nitrite Urine Negative (Negative); PH 5.5 (5.0-9.0); Specific Gravity - Urine 1.025 (1.005-1.025); UMIC TRIGGER UACC YES; Urine Blood Negative (Negative); Urine Ketones Trace mg/dL (Negative); Urine Protein 30 (1+) mg/dL (Neg-Trace)
[2022-07-25 10:29] LABS: Bacteria Urine None Seen (None Seen); RBC Urine 0-2 /HPF (0-2); Squamous Epithelial Cell Urine 0-2 /HPF (0-2); WBC Urine 0-5 /HPF (0-5)
[2022-07-25 10:29] LABS: TSH reflex Free T4 1.46 uIU/mL (0.32-4.0)
== END 2022-07-25 08:59 | disposition home or self-care (01) ==
LOC: HO.LAB 08:58
PROVIDERS: PCP Internal Medicine; Visit Provider Internal Medicine
DX: E78.00 Pure hypercholesterolemia, unspecified (principal)
CPT/HCPCS: 36415; 80053; 80061; 81001; 81003; 84443

== ENCOUNTER 2022-10-26 09:15 | Outpatient (AMB) | payer OTHER, SELFPAY ==
[2022-10-26 09:22] VITALS: BP 124/78; PULSE 64; O2SAT 98; BMI 34.2
--- NOTE | 2022-10-26 09:22 | A.OFFPC_ITS ---
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: No HPI neck pain, cracks HPI Details Patient comes in today mainly to request for a referral to physical therapy Recalls that sometime back in July 2022, he apparently turned his head to one side suddenly/abruptly and felt something crack over the back of his neck and states that he has been hearing/feeling the cracking sensation in his neck consistently since every time he moves or turns his head He denies any neck pain or headaches but states that the persistent cracking sensation feels annoying and he would like to get a referral to physical therapy to see if they can help him clear this up Relates that he went to physical therapy for his neck many years ago when he had some problems (pain) in his neck and that they were able to help him with this and avoid any neck surgery or procedures States that he feels okay otherwise Denies any dizziness No other acute complaints or symptoms are noted [facility] Medical History Carpal tunnel syndrome Impaired fasting glucose Obesity (BMI 30-39.9) Obstructive sleep apnea Osteoarthritis of knees, bilateral Persistent atrial fibrillation Pure hypercholesterolemia Vitamin D deficiency Surgical History History of surgery Family History Father CVD (cardiovascular disease) Cancer Mother Medical history unknown Social History Housing: House Alcohol intake: current Alcohol intake frequency: holidays/special occasions only Patient Tobacco Use Status: Never used Tobacco e-Cigarette/Vaping Use: Never Used Second Hand Smoke Exposure: Yes service: No Current occupational status: employed Current occupation: [employer] Cognitive needs: No Hearing needs: No Vision needs: No Questionnaire PHQ-9 Over the last 2 weeks, how often have you been bothered by any of the following problems? 1. Little interest or pleasure in doing things: not at all 2. Feeling down, depressed, or hopeless: not at all 3. Trouble falling or staying asleep, or sleeping too much: not at all 4. Feeling tired or having little energy: not at all 5. Poor appetite or overeating: not at all 6. Feeling bad about yourself - or that you are a failure or have let yourself or your family down: not at all 7. Trouble concentrating on things, such as reading the newspaper or watching television: not at all 8. Moving or speaking so slowly that other people could have noticed. Or the opposite - being so fidgety or restless that you have been moving around a lot more than usual: not at all 9. Thoughts that you would be better off or of hurting yourself in some way: not at all Total score: 0 Depression Screening Interpretation: Negative 69012 - PHQ-9 Billing: Yes Source: Developed by Drs. Carrington Alvarez, Sandy Chambers, William Sanders and colleagues, with an educational carson from [employer]. Thrive Questionnaire Date Thrive assessed: 10/26/22 I am a: Patient What is your living situation today?: I have a steady place to live Within the past 12 months, did the food you bought not last and you didn't have the money to get more?: Never true Within the past 12 months, did you worry whether your food would run out before you got money to buy more?: Never true Do you have trouble paying for medicines?: No Do you have trouble getting transportation to medical appointments?: No Do you have trouble paying your heating and electricity bill?: No Do you have trouble taking care of your child, family member or friend?: No Do you have trouble with day-to-day activities such as bathing, preparing meals, shopping, managing finances, etc.?: No Are you currently unemployed and looking for a job?: No Are you interested in more education?: No Currently or been in a relationship where the following occur: no concerns reported AUDIT C Alcohol Use Questionnaire (AUDIT-C) 1. How often do you have a drink containing alcohol?: Monthly or less 2. How many drinks containing alcohol do you have on a typical day when you are drinking?: 1 or 2 3. How often do you have six or more drinks on one occasion?: Never Total Score: 1 Score Reviewed/Action Taken: Yes NONA-7 AMB Questionnaire NONA-7 Date NONA - 7 assessed: 10/26/22 Feeling nervous, anxious, or on edge: 0 = Not at all Not being able to stop or control worryin = Not at all Worrying too much about different things: 0 = Not at all Trouble relaxin = Not at all Being so restless that it is hard to sit still: 0 = Not at all Becoming easily annoyed or irritable: 0 = Not at all Feeling afraid as if something awful might happen: 0 = Not at all Total NONA-7 score (0-4 normal; 5-9 mild; 10-14 moderate; 15-21 severe): 0 Source: Developed by Drs. Carrington Alvarez, Sandy Chambers, William Sanders and colleagues, with an educational carson from [employer]. Review of Systems Const Denies fatigue, Denies fever(s) and Denies headache(s) ENT Denies dysphagia, Denies dizziness, Denies otalgia, Denies headache(s), Denies neck pain, Denies odynophagia and Denies sore throat Card Denies chest pain, Denies palpitations and Denies dyspnea Resp Denies cough and Denies dyspnea GI Denies abdominal pain, Denies constipation, Denies dysphagia, Denies heartburn, Denies diarrhea, Denies nausea, Denies odynophagia and Denies vomiting Denies dysuria, Denies nocturia and Denies urinary frequency Musc Denies neck pain Neuro Denies dizziness and Denies headache(s) Endo Denies fatigue and Denies palpitations Physical exam (Primary Care) Vital Signs: Last Vital Signs Pulse 64 10/26/22 09:22 BP 124/78 10/26/22 09:22 Pulse Ox 98 10/26/22 09:22 Oxygen Delivery Method Room Air 10/26/22 09:22 BMI result Body Mass Index 34.2 Tobacco/Smoking Status: Tobacco use Status Tobacco use date assessed 10/26/22 10/26/22 09:27 Patient Tobacco Use Status Never used Tobacco 10/26/22 09:27 e-Cigarette/Vaping Use Never Used 10/26/22 09:27 PHQ-9: PHQ-9 Score PHQ-9: Total score 0 10/26/22 10:02 Depression Screening Interpretation: Negative Thrive Assessment: Date of Thrive Assessment Date Thrive assessed 10/26/22 10/26/22 09:27 Currently or been in a relationship where the following occur: no concerns reported Const General: no acute distress and alert Neck Other: (+) crepitus noted occasionally over the back of the neck with ROM of the neck/cervical spine; no tenderness noted on palpation and cervical spine ROM appears normal Neck: Yes no lymphadenopathy and Yes supple Resp Auscultation: clear to auscultation bilaterally, no rales and no wheezes Cardio Rate: regular rate Rhythm: regular rhythm Heart sounds: no murmurs GI Palpation (GI): Soft to palpation and nontender Auscultation: normal bowel sounds Back/Spine/Pelvis Cervical Spine: No pain with cervical ROM and No Cervical spine tenderness Extrem General: Yes no clubbing, cyanosis or edema Assessment and Plan Assessment & Plan (1) Neck complaint: Code(s): R68.89 - Other general symptoms and signs Plan: Per request, will refer him to physical therapy for further evaluation and management Discussed with patient that since he does not have any significant pain or discomfort in his neck, getting cervical spine x-rays done at this time would not provide us with any additional helpful information and would not really change our treatment plan so there is no reason to get repeat x-rays at this point Plan Follow up as scheduled next month Orders: Orders PT Evaluation and Treatment Today R68.89 - Other general symptoms and signs Coding Level of Care Code Est Pt Level 3 (42081) Diagnoses Neck complaint R68.89
== END 2022-10-26 10:10 | disposition home or self-care (01) ==
PROVIDERS: PCP Internal Medicine; Visit Provider Internal Medicine
DX: R68.89 Other general symptoms and signs (principal)
CPT/HCPCS: 99213

== ENCOUNTER 2022-11-30 17:00 | Outpatient (RCR) | payer OTHER, SELFPAY ==
--- NOTE | 2022-12-18 14:50 | MHC.PT.DC ---
[facility] [place] Office [place] Office [place] Office [address] Joey Daigle [address] [phone] F: [phone] F: [phone] F: [phone] F: [phone] Physical Therapy Discharge Report Diagnosis: NECK CRACKING Date of Surgery: Date of Evaluation: 11/27/22 Date of Discharge: 12/18/22 Treatments to Date: 2 Cancellations to Date: 0 No Shows to Date: 0 Discharge Status: Patient Elected to Stop Discharge Summary: ATTENDED EVAL AND 1 VISIT THEN ELECTED TO STOP PT. Electronically signed by: CRISTY MOSHER PT DPT Please sign and return to therapist. Thank you for your referral.
== END 2022-12-18 14:50 | disposition home or self-care (01) ==
LOC: HO.PT 17:00
PROVIDERS: PCP Internal Medicine; Visit Provider Internal Medicine
DX: M54.2 Cervicalgia (principal)
CPT/HCPCS: 97110; 97140; 97161

== ENCOUNTER 2022-12-08 16:41 | Outpatient (AMB) | payer OTHER, SELFPAY ==
[2022-12-08 16:43] VITALS: BP 110/80; PULSE 66; O2SAT 99; BMI 33.9
--- NOTE | 2022-12-08 16:43 | A.OFFPC_ITS ---
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: No Accompanied by: Self / Same As Patient Allergies codeine [CODEINE] Allergy (Severe, Verified 12/08/22 17:21) HIVES ibuprofen [From MOTRIN] Allergy (Severe, Verified 12/08/22 17:21) HIVES Medication List - Last Reconciled 12/08/22 by Henok Cornejo MD atorvastatin 10 mg PO DAILY diltiazem HCl 240 mg PO DAILY Tobacco use date assessed: 12/08/22 Dental Screening Dental Screen Date: 12/08/22 Did you have a dental visit in the last 12 months?: No Did you have a dental problem in the last 6 months where you did not have access to dental care?: No Was dental information given to patient?: No HPI HTN, hyperlipidemia HPI Details Patient comes in today for his follow up visit States that he currently feels okay Has been going to physical therapy for his neck issue (has been seen by PT at least twice now) and was advised that whatever they were doing for him is most l ikely not going to help and they have advised him to follow up with us on this States that he is scheduled to see his chiropractor in [place] next week for this and thinks that they will be doing a cervical spine x-ray there in the office for further evaluation Patient denies any headaches or dizziness Denies any chest pains, no SOB No nausea/vomiting, no abdominal pain No change in bowel habits noted Was not able to get his follow up labs done yet - states that he will try to get them done this weekend [facility] Medical History Vitamin D deficiency Persistent atrial fibrillation Obesity (BMI 30-39.9) Carpal tunnel syndrome Osteoarthritis of knees, bilateral Obstructive sleep apnea Pure hypercholesterolemia Impaired fasting glucose Surgical History History of surgery Family History Father CVD (cardiovascular disease) Cancer Mother Medical history unknown Social History Housing: House Alcohol intake: current Alcohol intake frequency: holidays/special occasions only Patient Tobacco Use Status: Never used Tobacco e-Cigarette/Vaping Use: Never Used Second Hand Smoke Exposure: Yes service: No Current occupational status: employed Current occupation: [employer] Cognitive needs: No Hearing needs: No Vision needs: No Questionnaire PHQ-9 Over the last 2 weeks, how often have you been bothered by any of the following problems? 1. Little interest or pleasure in doing things: not at all 2. Feeling down, depressed, or hopeless: not at all 3. Trouble falling or staying asleep, or sleeping too much: not at all 4. Feeling tired or having little energy: not at all 5. Poor appetite or overeating: not at all 6. Feeling bad about yourself - or that you are a failure or have let yourself or your family down: not at all 7. Trouble concentrating on things, such as reading the newspaper or watching television: not at all 8. Moving or speaking so slowly that other people could have noticed. Or the opposite - being so fidgety or restless that you have been moving around a lot more than usual: not at all 9. Thoughts that you would be better off or of hurting yourself in some way: not at all Total score: 0 Depression Screening Interpretation: Negative 82165 - PHQ-9 Billing: Yes Source: Developed by Drs. Carrington Alvarez, Sandy Chambers, William Sanders and colleagues, with an educational carson from [employer]. Thrive Questionnaire Date Thrive assessed: 12/08/22 I am a: Patient What is your living situation today?: I have a steady place to live Within the past 12 months, did the food you bought not last and you didn't have the money to get more?: Never true Within the past 12 months, did you worry whether your food would run out before you got money to buy more?: Never true Do you have trouble paying for medicines?: No Do you have trouble getting transportation to medical appointments?: No Do you have trouble paying your heating and electricity bill?: No Do you have trouble taking care of your child, family member or friend?: No Do you have trouble with day-to-day activities such as bathing, preparing meals, shopping, managing finances, etc.?: No Are you currently unemployed and looking for a job?: No Are you interested in more education?: No Please select the resources that you would like help with: None Currently or been in a relationship where the following occur: no concerns reported AUDIT C Alcohol Use Questionnaire (AUDIT-C) 1. How often do you have a drink containing alcohol?: Monthly or less 2. How many drinks containing alcohol do you have on a typical day when you are drinking?: 1 or 2 3. How often do you have six or more drinks on one occasion?: Never Total Score: 1 Score Reviewed/Action Taken: Yes NONA-7 AMB Questionnaire NONA-7 Date NONA - 7 assessed: 12/08/22 Feeling nervous, anxious, or on edge: 0 = Not at all Not being able to stop or control worryin = Not at all Worrying too much about different things: 0 = Not at all Trouble relaxin = Not at all Being so restless that it is hard to sit still: 0 = Not at all Becoming easily annoyed or irritable: 0 = Not at all Feeling afraid as if something awful might happen: 0 = Not at all Total NONA-7 score (0-4 normal; 5-9 mild; 10-14 moderate; 15-21 severe): 0 Source: Developed by Drs. Carrington Alvarez, Sandy Chambers, William Sanders and colleagues, with an educational carson from [employer]. Review of Systems Const Denies chills, Denies fatigue, Denies fever(s) and Denies headache(s) ENT Denies dysphagia, Denies dizziness, Denies otalgia, Denies headache(s), Denies neck pain (but feels his neck cracking often), Denies odynophagia and Denies sore throat Card Denies chest pain, Denies palpitations and Denies dyspnea Resp Denies cough and Denies dyspnea GI Denies abdominal pain, Denies constipation, Denies dysphagia, Denies heartburn, Denies diarrhea, Denies nausea, Denies odynophagia and Denies vomiting Denies dysuria, Denies nocturia and Denies urinary frequency Musc Denies neck pain (but feels his neck cracking often) Neuro Denies dizziness and Denies headache(s) Endo Denies fatigue and Denies palpitations Physical exam (Primary Care) Vital Signs: Last Vital Signs Pulse 66 12/08/22 16:43 BP 110/80 12/08/22 16:43 Pulse Ox 99 12/08/22 16:43 Oxygen Delivery Method Room Air 12/08/22 16:43 BMI result Body Mass Index 33.9 Tobacco/Smoking Status: Tobacco use Status Tobacco use date assessed 12/08/22 12/08/22 16:52 Patient Tobacco Use Status Never used Tobacco 12/08/22 16:52 e-Cigarette/Vaping Use Never Used 12/08/22 16:52 PHQ-9: PHQ-9 Score PHQ-9: Total score 0 12/08/22 16:52 Depression Screening Interpretation: Negative Thrive Assessment: Date of Thrive Assessment Date Thrive assessed 12/08/22 12/08/22 16:52 Currently or been in a relationship where the following occur: no concerns reported Const General: no acute distress and alert HENMT Ears: TM's normal bilaterally and EAC's normal Throat: Yes posterior oropharynx normal and Yes tonsils normal Neck Other: (+) crepitus noted occasionally over the back of the neck with ROM of the neck/cervical spine; no tenderness noted on palpation and cervical spine ROM appears normal Neck: Yes no lymphadenopathy and Yes supple Resp Auscultation: clear to auscultation bilaterally, no rales and no wheezes Cardio Rate: regular rate Rhythm: abnormal rhythm irregularly irregular Heart sounds: no murmurs GI Palpation (GI): Soft to palpation and nontender Auscultation: normal bowel sounds Back/Spine/Pelvis Cervical Spine: No pain with cervical ROM and No Cervical spine tenderness Extrem General: Yes no clubbing, cyanosis or edema Assessment and Plan Assessment & Plan (1) Pure hypercholesterolemia: Code(s): E78.00 - Pure hypercholesterolemia, unspecified Plan: Was not able to get his follow up labs done yet - states that he will try to get them done this weekend Reinforced low cholesterol diet Continue Atorvastatin 10 mg QD Will recheck his labs and fasting lipids again in 4 months for follow up (2) Persistent atrial fibrillation: Comment: Patient has failed rhythm control in the past with cardioversion and antiarrhythmic drug therapy Code(s): I48.19 - Other persistent atrial fibrillation Plan: Patient currently remains in atrial fibrillation but is rate-controlled Continue Diltiazem 240 mg QD Follow up with cardiology as scheduled Echocardiogram done back in June 2020 to assess cardiac function and chamber size came back normal except for mild biatrial enlargement Repeat echocardiogram done in May 2022 came out normal as well - left ventricular systolic function is normal and?the calculated ejection fraction is 61% by biplane method. No obvious valvular pathology seen on this study.? ? Has reportedly been advised by cardiology that he may need to pursue rhythm control again in the future (3) Impaired fasting glucose: Code(s): R73.01 - Impaired fasting glucose Plan: HgbA1c was at 5.8% when previously checked in April 2022 and in January 2022 Reinforced low calorie diet/exercise as tolerated Will recheck HgbA1c again in 4 months for follow up (4) Obstructive sleep apnea: Code(s): G47.33 - Obstructive sleep apnea (adult) (pediatric) Plan: Sleep study done back in April 2016 showed moderately severe YULISSA Patient has not been able to tolerate any CPAP device thus far; feels that he has been doing okay lately and that his symptoms have improved a lot since he changed his bed a couple of years ago and is now sleeping in more of a semi- reclining position at night, which helps to correct some of his breathing issues when he is sleeping Have recommended that he should get this rechecked again, either with a repeat sleep study OR a formal referral to sleep medicine for further evaluation and management - patient states that he will call for referral when he is ready to do so (5) Osteoarthritis of knees, bilateral: Code(s): M17.0 - Bilateral primary osteoarthritis of knee Qualifiers: Osteoarthritis type: primary Qualified Code(s): M17.0 - Bilateral primary osteoarthritis of knee Plan: Continue OTC Tylenol or Advil PRN for pain Follow up with orthopedics as scheduled (6) Carpal tunnel syndrome: Code(s): G56.00 - Carpal tunnel syndrome, unspecified upper limb Qualifiers: Laterality: bilateral Qualified Code(s): G56.03 - Carpal tunnel syndrome, bilateral upper limbs Plan: Encouraged again to continue using his wrist braces as needed to help minimize his wrist symptoms To consider referral to rheumatology (used to see Dr. Overton at [facility] several years ago) or orthopedics if his symptoms progress or worsen (7) Neck complaint: Code(s): R68.89 - Other general symptoms and signs Plan: Is currently going to physical therapy but has been advised that they do not have much else to offer him in terms of improvement He is scheduled to see his chiropractor in [place] for this next week and thinks that they are going to do some x-rays (of the cervical spine) and have advised patient to request that a copy of this be sent to us for review as well (8) Vitamin D deficiency: Code(s): E55.9 - Vitamin D deficiency, unspecified Plan: Continue Vitamin D3 2000 units QD (9) Obesity (BMI 30-39.9): Code(s): E66.9 - Obesity, unspecified Plan: Reinforced diet/exercise as tolerated/lose weight Plan Follow up in 4 months Orders: Orders Complete Blood Count Auto Diff 4 Months I10 - Essential (primary) hypertension TSH reflex Free T4 4 Months E78.00 - Pure hypercholesterolemia, unspecified Comprehensive [place]. Panel Fast 4 Months E78.00 - Pure hypercholesterolemia, unspecified Lipid Panel 4 Months E78.00 - Pure hypercholesterolemia, unspecified Hemoglobin A1c 4 Months R73.01 - Impaired fasting glucose UA CC w/rflx Micro + Cult 4 Months R30.0 - Dysuria Vitamin D 25-OH Total 4 Months E55.9 - Vitamin D deficiency, unspecified Coding Level of Care Code Est Pt Level 4 (20974) Diagnoses Pure hypercholesterolemia E78.00 Persistent atrial fibrillation I48.19 Impaired fasting glucose R73.01 Obstructive sleep apnea G47.33 Primary osteoarthritis of both knees M17.0 Osteoarthritis type: primary Bilateral carpal tunnel syndrome G56.03 Laterality: bilateral Neck complaint R68.89 Vitamin D deficiency E55.9 Obesity (BMI 30-39.9) E66.9
== END 2022-12-08 17:25 | disposition home or self-care (01) ==
PROVIDERS: PCP Internal Medicine; Visit Provider Internal Medicine
DX: E78.00 Pure hypercholesterolemia, unspecified (principal); I48.19 Other persistent atrial fibrillation; E55.9 Vitamin D deficiency, unspecified; R73.01 Impaired fasting glucose; G47.33 Obstructive sleep apnea (adult) (pediatric); M17.0 Bilateral primary osteoarthritis of knee; G56.03 Carpal tunnel syndrome, bilateral upper limbs; R68.89 Other general symptoms and signs; E66.9 Obesity, unspecified
CPT/HCPCS: 99214

== ENCOUNTER 2022-12-19 08:38 | Outpatient (REF) | payer OTHER, SELFPAY ==
[2022-12-19 08:51] LABS: MANUAL DIFF FLAG NO
[2022-12-19 09:11] LABS: Basophils Percent Auto 0.3 % (0-2); Eosinophils Absolute Auto 0.2 X10*3/uL (0.0-0.4); Eosinophils Percent Auto 2.5 % (0-4); Hemoglobin 14.6 g/dl (14.0-18.0); Imm Gran Abs Auto 0.02 X10*3/uL (0.00-0.03); Imm Gran Pct Auto 0.3 % (0.0-0.4); Lymphocytes Absolute Auto 1.9 X10*3/uL (1.2-4.9); Lymphocytes Percent Auto 32.3 % (20-40); Mean Corpuscular HGB Conc 34.8 g/dl (31.0-36.0); Mean Corpuscular Hemoglobin 31.9 pg (27.0-33.0); Mean Corpuscular Volume 91.9 fL (80.0-98.0); Mean Platelet Volume 10.2 fL (9.4-12.4); Monocytes Absolute Auto 0.5 X10*3/uL (0.1-1.2); Monocytes Percent Auto 8.6 % (2-11); Neutrophils Absolute Auto 3.3 x10*3/uL (2.0-8.3); Platelet Count 216 X10*3/uL (160-400); Red Blood Count 4.57 X10*6/uL (4.60-5.80); Red Cell Distribution Width 11.5 % (11.0-16.0); White Blood Count 5.9 X10*3/uL (4.8-10.8)
[2022-12-19 09:15] LABS: Estimated Average Glucose 120 mg/dL; Hemoglobin A1c % 5.8 % (<6.0)
[2022-12-19 09:34] LABS: Alanine Aminotransferase 24 U/L (0-40); Albumin Level 4.2 g/dL (3.5-5.0); Alkaline Phosphatase 63 U/L (39-117); Anion Gap 18 (12-20); Aspartate Amino Transferase 21 U/L (5-37); Bilirubin Total 0.7 mg/dL (0.0-1.0); Blood Urea Nitrogen 16 mg/dL (9-16); Calcium 9.7 mg/dL (8.4-10.2); Carbon Dioxide 21 mmol/L (22-29); Chloride 105 mmol/L (96-108); Cholesterol 176 mg/dL (<200); Estimated Glomerular Filt Rate > 60; Glucose Fasting 113 mg/dL (60-99); HDL Cholesterol 48 mg/dL (>40); LDL Cholesterol Calculated 109 mg/dL (<100); Potassium 4.3 mmol/L (3.3-5.1); Sodium 140 mmol/L (135-145); Total Protein 7.6 g/dL (6.5-8.0); Triglycerides 97 mg/dL (<150)
[2022-12-19 09:53] LABS: TSH reflex Free T4 1.43 uIU/mL (0.32-4.0)
[2022-12-19 10:06] LABS: Appearance Urine Clear; Color Urine Dark Yellow; Glucose Urine UA Negative (Negative); Leukocyte Esterase Urine Trace (Negative); Nitrite Urine Negative (Negative); PH 5.5 (5.0-9.0); Specific Gravity - Urine 1.025 (1.005-1.025); UMIC TRIGGER UACC YES; Urine Blood Negative (Negative); Urine Ketones Trace mg/dL (Negative); Urine Protein Trace mg/dL (Neg-Trace)
[2022-12-19 10:38] LABS: Bacteria Urine None Seen (None Seen); RBC Urine 0-2 /HPF (0-2); Squamous Epithelial Cell Urine 0-2 /HPF (0-2); WBC Urine 0-5 /HPF (0-5)
== END 2022-12-19 08:39 | disposition home or self-care (01) ==
LOC: HO.LAB 08:38
PROVIDERS: PCP Internal Medicine; Visit Provider Internal Medicine
DX: I10 Essential (primary) hypertension (principal); R73.01 Impaired fasting glucose; E55.9 Vitamin D deficiency, unspecified; E78.00 Pure hypercholesterolemia, unspecified
CPT/HCPCS: 36415; 80053; 80061; 81001; 81003; 82306; 83036; 84443; 85025

== ENCOUNTER 2023-04-03 08:28 | Outpatient (REF) | payer OTHER, SELFPAY ==
[2023-04-03 08:49] LABS: MANUAL DIFF FLAG NO
[2023-04-03 08:58] LABS: Basophils Percent Auto 0.5 % (0-2); Eosinophils Absolute Auto 0.2 X10*3/uL (0.0-0.4); Eosinophils Percent Auto 3.5 % (0-4); Hematocrit 40.5 % (42.0-52.0); Hemoglobin 14.3 g/dl (14.0-18.0); Imm Gran Abs Auto 0.02 X10*3/uL (0.00-0.03); Imm Gran Pct Auto 0.3 % (0.0-0.4); Lymphocytes Absolute Auto 2.2 X10*3/uL (1.2-4.9); Mean Corpuscular HGB Conc 35.3 g/dl (31.0-36.0); Mean Corpuscular Hemoglobin 31.9 pg (27.0-33.0); Mean Corpuscular Volume 90.4 fL (80.0-98.0); Mean Platelet Volume 9.6 fL (9.4-12.4); Monocytes Absolute Auto 0.5 X10*3/uL (0.1-1.2); Monocytes Percent Auto 9.2 % (2-11); Neutrophils Absolute Auto 2.8 x10*3/uL (2.0-8.3); Neutrophils Percent Auto 48.5 % (45-73); Platelet Count 251 X10*3/uL (160-400); Red Blood Count 4.48 X10*6/uL (4.60-5.80); Red Cell Distribution Width 11.5 % (11.0-16.0); White Blood Count 5.8 X10*3/uL (4.8-10.8)
[2023-04-03 09:07] LABS: Estimated Average Glucose 120 mg/dL; Hemoglobin A1c % 5.8 % (<6.0)
[2023-04-03 09:31] LABS: Appearance Urine Clear; Color Urine Dark Yellow; Glucose Urine UA Negative (Negative); Leukocyte Esterase Urine Negative (Negative); Nitrite Urine Negative (Negative); PH 5.5 (5.0-9.0); Specific Gravity - Urine 1.025 (1.005-1.025); UMIC TRIGGER UACC YES; Urine Blood Negative (Negative); Urine Ketones Trace mg/dL (Negative); Urine Protein 30 (1+) mg/dL (Neg-Trace)
[2023-04-03 09:43] LABS: Bacteria Urine None Seen (None Seen); RBC Urine 0-2 /HPF (0-2); Squamous Epithelial Cell Urine 0-2 /HPF (0-2); WBC Urine 0-5 /HPF (0-5)
[2023-04-03 09:48] LABS: Alanine Aminotransferase 21 U/L (0-40); Albumin Level 4.1 g/dL (3.5-5.0); Alkaline Phosphatase 65 U/L (39-117); Anion Gap 14 (12-20); Aspartate Amino Transferase 19 U/L (5-37); Bilirubin Total 0.8 mg/dL (0.0-1.0); Blood Urea Nitrogen 15 mg/dL (9-16); Calcium 9.5 mg/dL (8.4-10.2); Carbon Dioxide 24 mmol/L (22-29); Chloride 104 mmol/L (96-108); Cholesterol 170 mg/dL (<200); Estimated Glomerular Filt Rate 59; Glucose Fasting 113 mg/dL (60-99); HDL Cholesterol 44 mg/dL (>40); LDL Cholesterol Calculated 103 mg/dL (<100); Potassium 4.4 mmol/L (3.3-5.1); Sodium 138 mmol/L (135-145); Total Protein 7.7 g/dL (6.5-8.0); Triglycerides 117 mg/dL (<150)
[2023-04-03 10:04] LABS: TSH reflex Free T4 1.79 uIU/mL (0.32-4.0)
== END 2023-04-03 08:29 | disposition home or self-care (01) ==
LOC: HO.LAB 08:28
PROVIDERS: PCP Internal Medicine; Visit Provider Internal Medicine
DX: I10 Essential (primary) hypertension (principal); E78.00 Pure hypercholesterolemia, unspecified; R73.01 Impaired fasting glucose; E55.9 Vitamin D deficiency, unspecified
CPT/HCPCS: 36415; 80053; 80061; 81001; 82306; 83036; 84443; 85025

== ENCOUNTER 2023-04-14 16:03 | Outpatient (AMB) | payer OTHER, SELFPAY ==
--- NOTE | 2023-04-14 16:04 | A.OFFPC_ITS ---
Vital Signs 04/14/23 16:05 Height 5 ft 10 in Weight 242 lb BMI 34.7 BP 116/78 Blood Pressure Location Lt brachial Position Sitting Pulse 76 Pulse Source Pulse Oximeter Pulse Oximetry (%) 97 Oxygen Delivery Method Room Air Intake Visit Reasons: 4 month f/u Diffusion Operator Required: No Accompanied by: Self / Same As Patient Allergies codeine [CODEINE] Allergy (Severe, Verified 04/14/23 16:26) HIVES ibuprofen [From MOTRIN] Allergy (Severe, Verified 04/14/23 16:26) HIVES Medication List - Last Reconciled 04/14/23 by Henok Cornejo MD atorvastatin 10 mg PO DAILY diltiazem HCl 240 mg PO DAILY Tobacco use date assessed: 04/14/23 Dental Screening Dental Screen Date: 04/14/23 Did you have a dental visit in the last 12 months?: No Did you have a dental problem in the last 6 months where you did not have access to dental care?: No Was dental information given to patient?: No HPI 4 month f/u HPI Details Patient comes in today for his follow up visit States that he feels okay He denies any headaches or dizziness Denies any chest pains, no SOB No nausea/vomiting, no abdominal pain No change in bowel habits noted Need his Atorvastatin Rx refilled Had his follow up labs done a couple of weeks ago - to discuss his results [facility] Medical History Vitamin D deficiency Persistent atrial fibrillation Obesity (BMI 30-39.9) Carpal tunnel syndrome Osteoarthritis of knees, bilateral Obstructive sleep apnea Pure hypercholesterolemia Impaired fasting glucose Surgical History History of surgery Family History Father CVD (cardiovascular disease) Cancer Mother Medical history unknown Social History Housing: House Alcohol intake: current Alcohol intake frequency: holidays/special occasions only Patient Tobacco Use Status: Never used Tobacco e-Cigarette/Vaping Use: Never Used Second Hand Smoke Exposure: Yes service: No Current occupational status: employed Current occupation: [employer] Cognitive needs: No Hearing needs: No Vision needs: No Questionnaire PHQ-9 Over the last 2 weeks, how often have you been bothered by any of the following problems? 1. Little interest or pleasure in doing things: not at all 2. Feeling down, depressed, or hopeless: not at all 3. Trouble falling or staying asleep, or sleeping too much: not at all 4. Feeling tired or having little energy: not at all 5. Poor appetite or overeating: not at all 6. Feeling bad about yourself - or that you are a failure or have let yourself or your family down: not at all 7. Trouble concentrating on things, such as reading the newspaper or watching television: not at all 8. Moving or speaking so slowly that other people could have noticed. Or the opposite - being so fidgety or restless that you have been moving around a lot more than usual: not at all 9. Thoughts that you would be better off or of hurting yourself in some way: not at all Total score: 0 Depression Screening Interpretation: Negative Depression Screening Done: Yes 85466 - PHQ-9 Billing: Yes Source: Developed by Drs. Carrington Alvarez, Sandy Chambers, William Sanders and colleagues, with an educational carson from [employer]. Thrive Questionnaire Date Thrive assessed: 04/14/23 I am a: Patient What is your living situation today?: I have a steady place to live Within the past 12 months, did the food you bought not last and you didn't have the money to get more?: Never true Within the past 12 months, did you worry whether your food would run out before you got money to buy more?: Never true Do you have trouble paying for medicines?: No Do you have trouble getting transportation to medical appointments?: No Do you have trouble paying your heating and electricity bill?: No Do you have trouble taking care of your child, family member or friend?: No Do you have trouble with day-to-day activities such as bathing, preparing meals, shopping, managing finances, etc.?: No Are you currently unemployed and looking for a job?: No Are you interested in more education?: No Please select the resources that you would like help with: None Currently or been in a relationship where the following occur: no concerns reported THRIVE Score: 0 AUDIT C Alcohol Use Questionnaire (AUDIT-C) 1. How often do you have a drink containing alcohol?: Monthly or less 2. How many drinks containing alcohol do you have on a typical day when you are drinking?: 1 or 2 3. How often do you have six or more drinks on one occasion?: Never Total Score: 1 Score Reviewed/Action Taken: Yes NONA-7 AMB Questionnaire NONA-7 Date NONA - 7 assessed: 04/14/23 Feeling nervous, anxious, or on edge: 0 = Not at all Not being able to stop or control worryin = Not at all Worrying too much about different things: 0 = Not at all Trouble relaxin = Not at all Being so restless that it is hard to sit still: 0 = Not at all Becoming easily annoyed or irritable: 0 = Not at all Feeling afraid as if something awful might happen: 0 = Not at all Total NONA-7 score (0-4 normal; 5-9 mild; 10-14 moderate; 15-21 severe): 0 Source: Developed by Drs. Carrington Alvarez, Sandy Chambers, William Sanders and colleagues, with an educational carson from [employer]. Review of Systems Const Denies chills, Denies fatigue, Denies fever(s) and Denies headache(s) ENT Denies dysphagia, Denies dizziness, Denies otalgia, Denies headache(s), Denies neck pain, Denies odynophagia and Denies sore throat Card Denies chest pain, Denies palpitations and Denies dyspnea Resp Denies cough, Denies dyspnea and Denies wheezing GI Denies abdominal pain, Denies constipation, Denies dysphagia, Denies heartburn, Denies diarrhea, Denies nausea, Denies odynophagia and Denies vomiting Denies dysuria, Denies nocturia and Denies urinary frequency Musc Denies back pain and Denies neck pain Skin/Breast Denies rash Neuro Denies dizziness and Denies headache(s) Endo Denies fatigue and Denies palpitations Aller/Immun Denies wheezing Physical exam (Primary Care) Vital Signs: Last Vital Signs Pulse 76 04/14/23 16:05 BP 116/78 04/14/23 16:05 Pulse Ox 97 04/14/23 16:05 Oxygen Delivery Method Room Air 04/14/23 16:05 BMI result Body Mass Index 34.7 Tobacco/Smoking Status: Tobacco use Status Tobacco use date assessed 04/14/23 04/14/23 16:11 Patient Tobacco Use Status Never used Tobacco 04/14/23 16:11 e-Cigarette/Vaping Use Never Used 04/14/23 16:11 PHQ-9: PHQ-9 Score PHQ-9: Total score 0 04/14/23 16:46 Depression Screening Interpretation: Negative Thrive Assessment: Date of Thrive Assessment Date Thrive assessed 04/14/23 04/14/23 16:11 Currently or been in a relationship where the following occur: no concerns reported Const General: no acute distress and alert HENMT Ears: TM's normal bilaterally and EAC's normal Throat: Yes posterior oropharynx normal and Yes tonsils normal Neck Neck: Yes no lymphadenopathy and Yes supple Thyroid: Thyroid normal Resp Auscultation: clear to auscultation bilaterally, no rales and no wheezes Cardio Rate: regular rate Rhythm: abnormal rhythm irregularly irregular Heart sounds: no murmurs GI Palpation (GI): Soft to palpation and nontender Auscultation: normal bowel sounds General: Yes no CVA tenderness Back/Spine/Pelvis Back: no CVA tenderness Cervical Spine: No pain with cervical ROM and No Cervical spine tenderness Thoracic/Lumbar Spine: No lumbar spinal tenderness Skin Rashes: no rashes Extrem General: Yes no clubbing, cyanosis or edema Results Reviewed Results Reviewed: Laboratory Tests 04/03/23 04/03/23 04/03/23 08:48 08:48 09:17 WBC 5.8 Hgb 14.3 Hct 40.5 L Plt Count 251 Sodium 138 Potassium 4.4 Creatinine 1.25 Estimated GFR 59 Fasting Glucose 113 H Hemoglobin A1c % 5.8 Calcium 9.5 AST 19 ALT 21 Triglycerides 117 Cholesterol 170 LDL Cholesterol, Calc 103 H HDL Cholesterol 44 25-OH Vitamin D Total 25.0 L TSH 1.79 Ur Specific [place] 1.025 Urine Protein 30 (1+) H Urine Glucose (UA) Negative Urine Blood Negative Urine Nitrite Negative Ur Leukocyte Esterase Negative Assessment and Plan Assessment & Plan (1) Pure hypercholesterolemia: Code(s): E78.00 - Pure hypercholesterolemia, unspecified Plan: Results of his labs done a couple of weeks ago reviewed and discussed with patient Reinforced low cholesterol diet Continue Atorvastatin 10 mg QD Will recheck his labs and fasting lipids again in 4 months for follow up (2) Persistent atrial fibrillation: Comment: Patient has failed rhythm control in the past with cardioversion and antiarrhythmic drug therapy Code(s): I48.19 - Other persistent atrial fibrillation Plan: Patient remains in atrial fibrillation but is rate-controlled Continue Diltiazem 240 mg QD Follow up with cardiology as scheduled Echocardiogram done back in June 2020 to assess cardiac function and chamber size came back normal except for mild biatrial enlargement Repeat echocardiogram done in May 2022 came out normal as well - left ventricular systolic function is normal and?the calculated ejection fraction is 61% by biplane method. No obvious valvular pathology seen on this study.? ? Has reportedly been advised by cardiology that he may need to pursue rhythm cont rol again in the future (3) Impaired fasting glucose: Code(s): R73.01 - Impaired fasting glucose Plan: HgbA1c was at 5.8% on his labs done a couple of weeks ago; was also at 5.8% when previously checked in April 2022 and in January 2022 Reinforced low calorie diet/exercise as tolerated Will continue to monitor his FBS and HgbA1c regularly (4) Obstructive sleep apnea: Code(s): G47.33 - Obstructive sleep apnea (adult) (pediatric) Plan: Sleep study done back in April 2016 showed moderately severe YULISSA Patient has not been able to tolerate any CPAP device thus far; feels that he has been doing okay lately and that his symptoms have improved a lot since he changed his bed a couple of years ago and is now sleeping in more of a semi- reclining position at night, which helps to correct some of his breathing issues when he is sleeping Have recommended that he should get this rechecked again, either with a repeat sleep study OR a formal referral to sleep medicine for further evaluation and management - patient states that he will call for referral when he is ready to do so (5) Osteoarthritis of knees, bilateral: Code(s): M17.0 - Bilateral primary osteoarthritis of knee Qualifiers: Osteoarthritis type: primary Qualified Code(s): M17.0 - Bilateral primary osteoarthritis of knee Plan: Continue OTC Tylenol or Advil PRN for pain Follow up with orthopedics as scheduled (6) Carpal tunnel syndrome: Code(s): G56.00 - Carpal tunnel syndrome, unspecified upper limb Qualifiers: Laterality: bilateral Qualified Code(s): G56.03 - Carpal tunnel syndrome, bilateral upper limbs Plan: He is encouraged again to continue using his wrist braces as needed to help minimize his wrist symptoms To consider referral to rheumatology (used to see Dr. Overton at [facility] several years ago) or orthopedics if his symptoms progress or worsen (7) Vitamin D deficiency: Code(s): E55.9 - Vitamin D deficiency, unspecified Plan: Patient is advised that his Vitamin D level is low again and he should start back on his Vitamin D supplement Will restart Vitamin D3 2000 units QD (8) Obesity (BMI 30-39.9): Code(s): E66.9 - Obesity, unspecified Plan: Reinforced diet/exercise as tolerated/lose weight Plan Follow up in 4 months Orders: Orders Lipid Panel 4 Months E78.00 - Pure hypercholesterolemia, unspecified Comprehensive [place]. Panel Fast 4 Months E78.00 - Pure hypercholesterolemia, unspecified Hemoglobin A1c 4 Months R73.01 - Impaired fasting glucose Medications: New cholecalciferol (vitamin D3) 50 mcg PO DAILY 90 caps 3RF 90 days E55.9 - Vitamin D deficiency, unspecified Refilled atorvastatin 10 mg PO DAILY 90 tabs 1RF Coding Level of Care Code Est Pt Level 4 (46678) Diagnoses Pure hypercholesterolemia E78.00 Persistent atrial fibrillation I48.19 Impaired fasting glucose R73.01 Obstructive sleep apnea G47.33 Primary osteoarthritis of both knees M17.0 Osteoarthritis type: primary Bilateral carpal tunnel syndrome G56.03 Laterality: bilateral Vitamin D deficiency E55.9 Obesity (BMI 30-39.9) E66.9
[2023-04-14 16:05] VITALS: BP 116/78; PULSE 76; O2SAT 97; BMI 34.7
== END 2023-04-14 16:37 | disposition home or self-care (01) ==
PROVIDERS: PCP Internal Medicine; Visit Provider Internal Medicine
DX: E78.00 Pure hypercholesterolemia, unspecified (principal); I48.19 Other persistent atrial fibrillation; E66.9 Obesity, unspecified; Z68.34 Body mass index [BMI] 34.0-34.9, adult; R73.01 Impaired fasting glucose; G47.33 Obstructive sleep apnea (adult) (pediatric); M17.0 Bilateral primary osteoarthritis of knee; G56.03 Carpal tunnel syndrome, bilateral upper limbs; E55.9 Vitamin D deficiency, unspecified
CPT/HCPCS: 99214

== ENCOUNTER 2023-06-25 16:15 | Outpatient (AMB) | payer OTHER, SELFPAY ==
[2023-06-25 16:22] VITALS: BP 100/68; PULSE 82; O2SAT 97; BMI 34.7
--- NOTE | 2023-06-25 16:22 | MHC.PC.OV ---
Vital Signs 06/25/23 16:22 Height 5 ft 10 in Weight 242 lb BMI 34.7 BP 100/68 Blood Pressure Location Lt brachial Position Sitting Pulse 82 Pulse Source Pulse Oximeter Pulse Oximetry (%) 97 Oxygen Delivery Method Room Air Intake Visit Reasons: possible vertigo Intake Note: Pt is here for vertigo symptoms for the past three weeks. Residential Real Estate Appraiser Required: No Accompanied by: Self / Same As Patient Allergies codeine [CODEINE] Allergy (Severe, Verified 06/25/23 17:01) HIVES ibuprofen [From MOTRIN] Allergy (Severe, Verified 06/25/23 17:01) HIVES Medication List - Last Reconciled 06/25/23 by Henok Cornejo MD atorvastatin 10 mg PO DAILY cholecalciferol (vitamin D3) 50 mcg PO DAILY 90 days diltiazem HCl CD 240 mg PO DAILY Tobacco use date assessed: 04/14/23 Dental Screening Dental Screen Date: 04/14/23 HPI possible vertigo HPI Details Patient comes in today complaining of recurrent dizziness for the past 3 weeks Relates that he would usually experience transient bouts of dizziness/lightheadedness immediately when he gets up from tying his shoes or when he gets up from his chair or his bed too quickly Notes that these episodes tend to last for just a few seconds before subsiding He is concerned that with his recent symptoms, he may have some ongoing blockage in his carotid arteries and is in danger of getting a stroke at some point States that he feels okay otherwise and denies any headaches He denies any associated chest pains, palpitations of SOB associated with his recent episodes of dizziness He also has not experienced any nausea or vomiting with his symptoms Denies any abdominal pain and no change in bowel habits noted [facility] Medical History Vitamin D deficiency Persistent atrial fibrillation Obesity (BMI 30-39.9) Carpal tunnel syndrome Osteoarthritis of knees, bilateral Obstructive sleep apnea Pure hypercholesterolemia Impaired fasting glucose Surgical History History of surgery Family History Father CVD (cardiovascular disease) Cancer Mother Medical history unknown Social History Housing: House Alcohol intake: current Alcohol intake frequency: holidays/special occasions only Patient Tobacco Use Status: Never used Tobacco e-Cigarette/Vaping Use: Never Used Second Hand Smoke Exposure: Yes service: No Current occupational status: employed Current occupation: [employer] Cognitive needs: No Hearing needs: No Vision needs: No Questionnaire Thrive Questionnaire Date Thrive assessed: 04/14/23 NONA-7 AMB Questionnaire NONA-7 Date NONA - 7 assessed: 04/14/23 Source: Developed by Drs. Carrington Alvarez, Sandy Chambers, William Sanders and colleagues, with an educational carson from [employer]. Review of Systems Const Denies fatigue, Denies fever(s) and Denies headache(s) ENT Denies dysphagia, Reports dizziness (on and off, often associated with changes in position (see HPI)), Denies otalgia, Denies headache(s), Denies neck pain (although he reports (+) tight sensation on the sides of his neck at times), Denies odynophagia and Denies sore throat Card Denies chest pain, Denies palpitations and Denies dyspnea Resp Denies cough, Denies dyspnea and Denies wheezing GI Denies abdominal pain, Denies constipation, Denies dysphagia, Denies heartburn, Denies diarrhea, Denies nausea, Denies odynophagia and Denies vomiting Denies dysuria, Denies nocturia and Denies urinary frequency Musc Denies back pain and Denies neck pain (although he reports (+) tight sensation on the sides of his neck at times) Skin/Breast Denies rash Neuro Reports dizziness (on and off, often associated with changes in position (see HPI)) and Denies headache(s) Endo Denies fatigue and Denies palpitations Aller/Immun Denies wheezing Physical exam (Primary Care) Vital Signs: Last Vital Signs Pulse 82 06/25/23 16:22 BP 100/68 06/25/23 16:22 Pulse Ox 97 06/25/23 16:22 Oxygen Delivery Method Room Air 06/25/23 16:22 BMI result Body Mass Index 34.7 Tobacco/Smoking Status: Tobacco use Status Tobacco use date assessed 04/14/23 06/25/23 16:22 Patient Tobacco Use Status Never used Tobacco 06/25/23 16:22 e-Cigarette/Vaping Use Never Used 06/25/23 16:22 Thrive Assessment: Date of Thrive Assessment Date Thrive assessed 04/14/23 06/25/23 16:22 Const General: no acute distress and alert HENMT Ears: TM's normal bilaterally and EAC's normal Throat: Yes posterior oropharynx normal and Yes tonsils normal Neck Neck: Yes no lymphadenopathy and Yes supple Thyroid: Thyroid normal Carotids: no bruits Resp Auscultation: clear to auscultation bilaterally, no rales and no wheezes Cardio Rate: regular rate Rhythm: abnormal rhythm irregularly irregular Heart sounds: no murmurs GI Palpation (GI): Soft to palpation and nontender Auscultation: normal bowel sounds General: Yes no CVA tenderness Back/Spine/Pelvis Back: no CVA tenderness Cervical Spine: Cervical spine tenderness (mild) Thoracic/Lumbar Spine: No lumbar spinal tenderness Skin Rashes: no rashes Extrem General: Yes no clubbing, cyanosis or edema Assessment and Plan Assessment & Plan (1) Orthostatic dizziness: Code(s): R42 - Dizziness and giddiness Plan: Patient is advised that his recent recurrent dizziness appear to be more consistent with orthostasis rather than vertigo Discussed that these episodes may be due to a few possible causes, including hypovolemia (dehydration/inadequate oral fluid intake), low blood pressure and neurologic/neuropathic reasons, among others, and that in his case, his blood pressure seem to be comparatively lower than his usual BP readings in the past and may be the actual reason for his recent bouts of orthostatic dizziness as his echocardiogram done a year ago in May 2022 was normal Advised that among his current medications, Diltiazem is the only one that can potentially affect his blood pressure but he needs to continue on this for (rate) control of his atrial fibrillation as he has failed rhythm control in the past Have discussed potentially trying to lower the dosage of his Diltiazem from 240 mg to 180 mg to see if his symptoms will improve BUT as he is seeing cardiology in a couple of weeks, advised to stay on his current dose and discuss this with cardiology at his upcoming appointment Advised that dizziness/lightheadeness in itself can also be a possible side effect of Diltiazem but he has been on this for a while now and his symptoms just started recently so this is a less likely possibility Have encouraged him in the meantime to make sure he stays adequately hydrated and to try avoiding any sudden or abrupt shifts or changes in position as much as he can (2) Persistent atrial fibrillation: Comment: Patient has failed rhythm control in the past with cardioversion and antiarrhythmic drug therapy Code(s): I48.19 - Other persistent atrial fibrillation Plan: Patient currently remains in atrial fibrillation but is rate-controlled Continue Diltiazem 240 mg QD for now but he has reportedly been advised by cardiology that he may need to pursue rhythm control again in the future Follow up with cardiology as scheduled Echocardiogram done in May 2022 came out normal, with a normal left ventricular systolic function with?the calculated ejection fraction at 61%. No obvious valvular pathology was seen on this study.? His previous?echocardiogram done back in June 2020 (done to assess his cardiac function and chamber size at the time) also came back normal except for mild biatrial enlargement (3) Tightness of neck: Code(s): R29.898 - Other symptoms and signs involving the musculoskeletal system Plan: Will send him for cervical spine x-rays for further evaluation of his reported sensations of tightness over the sides of his neck recently Advised that carotid stenosis typically do not present this way and that his recent neck symptoms may be due to some cervical spine issues instead (4) Pure hypercholesterolemia: Code(s): E78.00 - Pure hypercholesterolemia, unspecified Plan: Reinforced low cholesterol diet Continue Atorvastatin 10 mg QD Will recheck his labs and fasting lipids as scheduled next month for follow up (5) Impaired fasting glucose: Code(s): R73.01 - Impaired fasting glucose Plan: HgbA1c was at 5.8% on his labs done a few months ago; it was also at 5.8% when previously checked in April 2022 and in January 2022 Reinforced low calorie diet/exercise as tolerated Will continue to monitor his FBS and HgbA1c regularly (6) Obstructive sleep apnea: Code(s): G47.33 - Obstructive sleep apnea (adult) (pediatric) Plan: Sleep study done back in April 2016 showed moderately severe YULISSA Patient has not been able to tolerate any CPAP device thus far; feels that he has been doing okay lately and that his symptoms have improved a lot since he changed his bed a couple of years ago and he is now sleeping in more of a semi-reclining position at night, which helps to correct some of his breathing issues when he is sleeping We have recommended to patient previously that he should get this rechecked again, either with a repeat sleep study OR a formal referral to sleep medicine for further evaluation and management - patient states that he will call for referral when he feels he is ready to do so (7) Osteoarthritis of knees, bilateral: Code(s): M17.0 - Bilateral primary osteoarthritis of knee Qualifiers: Osteoarthritis type: primary Qualified Code(s): M17.0 - Bilateral primary osteoarthritis of knee Plan: Continue OTC Tylenol or Advil PRN for pain Follow up with orthopedics as scheduled (8) Carpal tunnel syndrome: Code(s): G56.00 - Carpal tunnel syndrome, unspecified upper limb Qualifiers: Laterality: bilateral Qualified Code(s): G56.03 - Carpal tunnel syndrome, bilateral upper limbs Plan: He is encouraged again to continue using his wrist braces as needed to help minimize his wrist symptoms Will consider referral to rheumatology again (used to see Dr. Overton at [facility] [place] ago) or orthopedics if his symptoms progress or worsen (9) Vitamin D deficiency: Code(s): E55.9 - Vitamin D deficiency, unspecified Plan: Continue Vitamin D3 2000 units QD (10) Obesity (BMI 30-39.9): Code(s): E66.9 - Obesity, unspecified Plan: Reinforced diet/exercise as tolerated/lose weight Plan Follow up as scheduled in late July 2023 Orders: Orders XR cervical spine 3V 06/26/23 M54.2 - Cervicalgia Coding Level of Care Code Est Pt Level 4 (39929) Diagnoses Orthostatic dizziness R42 Persistent atrial fibrillation I48.19 Tightness of neck R29.898 Pure hypercholesterolemia E78.00 Impaired fasting glucose R73.01 Obstructive sleep apnea G47.33 Primary osteoarthritis of both knees M17.0 Osteoarthritis type: primary Bilateral carpal tunnel syndrome G56.03 Laterality: bilateral Vitamin D deficiency E55.9 Obesity (BMI 30-39.9) E66.9
== END 2023-06-25 17:20 | disposition home or self-care (01) ==
PROVIDERS: PCP Internal Medicine; Visit Provider Internal Medicine
DX: R42 Dizziness and giddiness (principal); I48.19 Other persistent atrial fibrillation; E66.9 Obesity, unspecified; Z68.34 Body mass index [BMI] 34.0-34.9, adult; R29.898 Other symptoms and signs involving the musculoskeletal system; E78.00 Pure hypercholesterolemia, unspecified; R73.01 Impaired fasting glucose; G47.33 Obstructive sleep apnea (adult) (pediatric); M17.0 Bilateral primary osteoarthritis of knee; G56.03 Carpal tunnel syndrome, bilateral upper limbs; E55.9 Vitamin D deficiency, unspecified
CPT/HCPCS: 99214

== ENCOUNTER 2023-06-26 09:27 | Outpatient (REF) | payer OTHER, SELFPAY ==
--- NOTE | ~2023-06-26 | XR_ITS ---
EXAMINATION: XR CERVICAL SPINE CLINICAL INFORMATION: Neck pain COMPARISON: None available. TECHNIQUE: 3 views of the cervical spine were obtained. FINDINGS: Bone alignment is normal. No fracture or dislocation. Degenerative spondylosis and degenerative disc disease from C4-C5 to C7-T1. Prevertebral soft tissues are normal. XR/XR cervical spine 3V IMPRESSION: Degenerative changes.
== END 2023-06-26 09:28 | disposition home or self-care (01) ==
LOC: HO.XRAY 09:27
PROVIDERS: PCP Internal Medicine; Visit Provider Internal Medicine
DX: M54.2 Cervicalgia (principal)
CPT/HCPCS: 72040

== ENCOUNTER 2023-07-15 14:32 | Outpatient (AMB) | payer OTHER, SELFPAY ==
--- NOTE | 2023-07-15 14:36 | MHC.OFFVIS ---
Vital Signs 07/15/23 14:37 Height 5 ft 10 in Weight 242 lb 8.136 oz BMI 34.8 BP 120/72 Blood Pressure Location Lt brachial Position Sitting Pulse 54 Intake Visit Reasons: 1 YEAR FOLLOW UP Intake Note: 1 year follow-up with ekg c/o lightness when lying down moving to side to side and if he tieing his shoe Allergies codeine [CODEINE] Allergy (Severe, Verified 06/25/23 17:01) HIVES ibuprofen [From MOTRIN] Allergy (Severe, Verified 06/25/23 17:01) HIVES Medication List - Last Reconciled 07/15/23 by Armando Barton MD atorvastatin 10 mg PO DAILY cholecalciferol (vitamin D3) 50 mcg PO DAILY 90 days diltiazem HCl CD 240 mg PO DAILY HPI Comments Details: Henok comes for follow-up. Is to forms of dizziness lightheadedness. He said 1 he gets spinning sensation or vertigo like sensation when he turns position from right side to left side in bed. He also describes head piña and lightheadedness when he oni over and then gets up suddenly. He has not had any syncopal episodes. He is worried about stroke although he has not had any focal neurologic deficits. He has no heart failure syndrome. No palpitations. He was told that Cardizem might be affecting his symptoms. He has not been recording blood pressures at home. He denies any chest pain. He denies any exertional worsening shortness of breath. He does not drink adequate amount of water in the daytime. [facility] Medical History Vitamin D deficiency Persistent atrial fibrillation Obesity (BMI 30-39.9) Carpal tunnel syndrome Osteoarthritis of knees, bilateral Obstructive sleep apnea Pure hypercholesterolemia Impaired fasting glucose Surgical History History of surgery Family History Father CVD (cardiovascular disease) Cancer Mother Medical history unknown Social History Housing: House Alcohol intake: current Alcohol intake frequency: holidays/special occasions only Patient Tobacco Use Status: Never used Tobacco e-Cigarette/Vaping Use: Never Used Second Hand Smoke Exposure: Yes service: No Current occupational status: employed Current occupation: [employer] Cognitive needs: No Hearing needs: No Vision needs: No Review of Systems Const Denies chills, Denies fatigue, Denies fever(s), Denies frequent falls, Denies weakness, Denies weight gain and Denies weight loss ENT Denies dizziness Card Denies chest pain, Denies leg edema, Denies lightheadedness, Denies palpitations, Denies dyspnea, Denies dyspnea on exertion, Denies orthopnea and Denies other (loss of consciousness) Resp Denies cough, Denies dyspnea and Denies dyspnea on exertion GI Denies hematochezia and Denies change in stool character Musc Denies abnormal gait, Denies muscle weakness, Denies numbness, Denies radiating pain into limb and Denies tingling Neuro Denies abnormal gait, Denies dizziness, Denies frequent falls, Denies numbness, Denies tingling and Denies weakness Endo Denies fatigue and Denies palpitations Physical Exam Vital Signs: Last Vital Signs Pulse 54 07/15/23 14:37 BP 120/72 07/15/23 14:37 BMI result Body Mass Index 34.8 Const General: cooperative, comfortable, no acute distress, alert and awake Nutritional Appearance: obese Orientation/consciousness: patient oriented x3 Limitations: no limitations Neck Neck: Yes trachea midline, Yes supple and Yes no JVD Chest Chest palpation & inspection: normal inspection of the chest Resp Effort & Inspection: normal respiratory effort Auscultation: clear to auscultation bilaterally Cardio Jugular venous distension: no JVD Rhythm: abnormal rhythm irregularly irregular Heart sounds: S1 normal heart sound present and S2 normal heart sound present GI Auscultation: normal bowel sounds Skin General skin exam: no rashes or lesions noted Neuro General: patient oriented x3 and no focal motor deficits Extrem General: Yes no clubbing, cyanosis or edema Psych Appearance: grossly normal Office Procedures EKG Details: EKG shows atrial fibrillation at 54 beats per minute slow ventricular response with no significant ST T wave changes [id number], Complete Assessment & Plan Assessment & Plan (1) Persistent atrial fibrillation: Comment: Patient has failed rhythm control in the past with cardioversion and antiarrhythmic drug therapy Code(s): I48.19 - Other persistent atrial fibrillation Category: Medical Plan: Patient with persistent chronic atrial fibrillation without signs or symptoms of heart failure. Today noted to have slow ventricular response. Could be over corrected heart rate with Cardizem. Will obtain Holter monitor to assess for the same. If he does have significant slow ventricular response will reduce Cardizem therapy. CHADSVASc score of 0 with normal left atrial chamber size last year. Continue with no oral anticoagulation therapy. This may need to be reconsidered in the future. Follow-up echocardiogram in 1 year's time. (2) Lightheadedness: Code(s): R42 - Dizziness and giddiness Plan: Lightheadedness with orthostatic component. Could be related to Cardizem therapy but more likely related to relative hypovolemia. Discussed orthostatic precautions. Advised to monitor blood pressure at home and maintain a log. Advised to increase his oral fluid intake significantly and reduce overall caffeinated intake. Management of orthostatic lightheadedness was discussed in details. Holter monitor as above. May require further adjustment of Cardizem dose based on the Holter monitor finding. Will follow up in the clinic in 1 year's time, sooner p.r.n.. Thank you for allowing me to partake in his care Orders: Orders CA echo transthoracic complete 1 Year I48.19 - Other persistent atrial fibrillation ECG holter monitor 48 hour Today I48.19 - Other persistent atrial fibrillation Coding Level of Care Code Est Pt Level 4 (03617) Diagnoses Persistent atrial fibrillation I48.19 Lightheadedness R42 CPT Codes EKG - CPT: 15276-[id number], Complete ([id number])
[2023-07-15 14:37] VITALS: BP 120/72; PULSE 54; BMI 34.8
== END 2023-07-15 15:25 | disposition home or self-care (01) ==
PROVIDERS: Visit Provider Internal Medicine Cardiovascular Disease
DX: I48.19 Other persistent atrial fibrillation (principal); R42 Dizziness and giddiness
CPT/HCPCS: 93010; 99214

== ENCOUNTER → 2023-07-15 14:32 | Outpatient (BNVA) | payer OTHER, SELFPAY | PROVIDERS: Visit Provider Internal Medicine Cardiovascular Disease | DX: I48.19 Other persistent atrial fibrillation (principal); R42 Dizziness and giddiness | CPT/HCPCS: 93005 ==

== ENCOUNTER → 2023-07-30 13:11 | Outpatient (REF) | payer OTHER, SELFPAY ==
--- NOTE | 2023-07-30 13:16 | HM_ITS ---
* Total monitoring time 2 days. * Underlying rhythm is atrial fibrillation with an average rate of 67/Min. * Rare ventricular ectopy. * No significant pauses or AV blocks. * No patient markers or diary events. MTDD
== END ==
LOC: HO.CARD 13:11
PROVIDERS: PCP Internal Medicine; Visit Provider Internal Medicine Cardiovascular Disease
DX: I48.19 Other persistent atrial fibrillation (principal)
CPT/HCPCS: 93225

== ENCOUNTER → 2023-07-30 13:16 | Outpatient (BNV) | payer OTHER, SELFPAY | PROVIDERS: PCP Internal Medicine; Visit Provider Internal Medicine | DX: I48.91 Unspecified atrial fibrillation (principal) | CPT/HCPCS: 93227 ==

== ENCOUNTER 2023-08-14 08:06 | Outpatient (REF) | payer OTHER, SELFPAY ==
[2023-08-14 09:14] LABS: Estimated Average Glucose 123 mg/dL; Hemoglobin A1C 157.5974 umol/L; Hemoglobin A1c % 5.9 % (<6.0)
[2023-08-14 09:27] LABS: Alanine Aminotransferase 27 U/L (0-40); Albumin Level 4.2 g/dL (3.5-5.0); Alkaline Phosphatase 62 U/L (39-117); Anion Gap 13 (12-20); Aspartate Amino Transferase 21 U/L (5-37); Bilirubin Total 0.9 mg/dL (0.0-1.0); Blood Urea Nitrogen 12 mg/dL (9-16); Calcium 9.2 mg/dL (8.4-10.2); Carbon Dioxide 23 mmol/L (22-29); Chloride 108 mmol/L (96-108); Cholesterol 161 mg/dL (<200); Estimated Glomerular Filt Rate > 60; Glucose Fasting 115 mg/dL (60-99); HDL Cholesterol 41 mg/dL (>40); LDL Cholesterol Calculated 107 mg/dL (<100); Potassium 4.2 mmol/L (3.3-5.1); Sodium 140 mmol/L (135-145); Total Protein 7.7 g/dL (6.5-8.0); Triglycerides 69 mg/dL (<150)
== END 2023-08-14 08:07 | disposition home or self-care (01) ==
LOC: HO.LAB 08:06
PROVIDERS: PCP Internal Medicine; Visit Provider Internal Medicine
DX: R73.01 Impaired fasting glucose (principal); E78.00 Pure hypercholesterolemia, unspecified
CPT/HCPCS: 36415; 80053; 80061; 83036

== ENCOUNTER 2023-08-26 12:33 | Outpatient (AMB) | payer OTHER, SELFPAY ==
[2023-08-26 12:46] VITALS: BP 100/64; PULSE 76; O2SAT 97; BMI 35.2
--- NOTE | 2023-08-26 12:46 | MHC.PC.OV ---
Vital Signs 08/26/23 12:46 Height 5 ft 10 in Weight 245 lb 0.8 oz BMI 35.2 BP 100/64 Blood Pressure Location Lt brachial Position Sitting Pulse 76 Pulse Source Pulse Oximeter Pulse Oximetry (%) 97 Oxygen Delivery Method Room Air Intake Visit Reasons: Annual PE/hyperlipidemia, AF, IFG Allergies codeine [CODEINE] Allergy (Severe, Verified 08/26/23 13:24) HIVES ibuprofen [From MOTRIN] Allergy (Severe, Verified 08/26/23 13:24) HIVES Medication List - Last Reconciled 08/26/23 by Henok Cornejo MD atorvastatin 10 mg PO DAILY cholecalciferol (vitamin D3) 50 mcg PO DAILY 90 days diltiazem HCl CD 240 mg PO DAILY Tobacco use date assessed: 08/26/23 Dental Screening Dental Screen Date: 08/26/23 Did you have a dental visit in the last 12 months?: No Did you have a dental problem in the last 6 months where you did not have access to dental care?: No HPI Annual PE/hyperlipidemia, AF, IFG HPI Details Patient comes in today for his annual physical examination States that he currently feels okay He denies any headaches or dizziness Denies any chest pains, no SOB No nausea/vomiting, no abdominal pain No change in bowel habits noted He denies any acute urinary symptoms Had his follow up labs done a couple of weeks ago - to discuss his results He had his screening colonoscopy done last year in March 2022 - was recommended to get repeat colonoscopy in 3 to 5 years [facility] Medical History (Updated 08/26/23 @ 13:27 by Henok Cornejo MD) Vitamin D deficiency Persistent atrial fibrillation Obesity (BMI 30-39.9) Carpal tunnel syndrome Osteoarthritis of knees, bilateral Obstructive sleep apnea Pure hypercholesterolemia Impaired fasting glucose Surgical History (Updated 08/26/23 @ 13:27 by Henok Cornejo MD) Hx of colonoscopy History of surgery Family History Father CVD (cardiovascular disease) Cancer Mother Medical history unknown Social History Housing: House Alcohol intake: current Alcohol intake frequency: holidays/special occasions only Patient Tobacco Use Status: Never used Tobacco e-Cigarette/Vaping Use: Never Used Second Hand Smoke Exposure: Yes service: No Current occupational status: employed Current occupation: [employer] Cognitive needs: No Hearing needs: No Vision needs: No Questionnaire PHQ-9 Over the last 2 weeks, how often have you been bothered by any of the following problems? 1. Little interest or pleasure in doing things: not at all 2. Feeling down, depressed, or hopeless: not at all 3. Trouble falling or staying asleep, or sleeping too much: not at all 4. Feeling tired or having little energy: not at all 5. Poor appetite or overeating: not at all 6. Feeling bad about yourself - or that you are a failure or have let yourself or your family down: not at all 7. Trouble concentrating on things, such as reading the newspaper or watching television: not at all 8. Moving or speaking so slowly that other people could have noticed. Or the opposite - being so fidgety or restless that you have been moving around a lot more than usual: not at all 9. Thoughts that you would be better off or of hurting yourself in some way: not at all Total score: 0 Depression Screening Interpretation: Negative Depression Screening Done: Yes 61567 - PHQ-9 Billing: Yes Source: Developed by Drs. Carrington Alvarez, Sandy Chambers, William Sanders and colleagues, with an educational carson from [employer]. Thrive Questionnaire Date Thrive assessed: 08/26/23 I am a: Patient What is your living situation today?: I have a steady place to live Within the past 12 months, did the food you bought not last and you didn't have the money to get more?: Never true Within the past 12 months, did you worry whether your food would run out before you got money to buy more?: Never true Do you have trouble paying for medicines?: No Do you have trouble getting transportation to medical appointments?: No Do you have trouble paying your heating and electricity bill?: No Do you have trouble taking care of your child, family member or friend?: No Do you have trouble with day-to-day activities such as bathing, preparing meals, shopping, managing finances, etc.?: No Are you currently unemployed and looking for a job?: No Are you interested in more education?: No Please select the resources that you would like help with: None Currently or been in a relationship where the following occur: no concerns reported THRIVE Score: 0 AUDIT C Alcohol Use Questionnaire (AUDIT-C) 1. How often do you have a drink containing alcohol?: Monthly or less 2. How many drinks containing alcohol do you have on a typical day when you are drinking?: 1 or 2 3. How often do you have six or more drinks on one occasion?: Never Total Score: 1 Score Reviewed/Action Taken: Yes NONA-7 AMB Questionnaire NONA-7 Date NONA - 7 assessed: 08/26/23 Feeling nervous, anxious, or on edge: 0 = Not at all Not being able to stop or control worryin = Not at all Worrying too much about different things: 0 = Not at all Trouble relaxin = Not at all Being so restless that it is hard to sit still: 0 = Not at all Becoming easily annoyed or irritable: 0 = Not at all Feeling afraid as if something awful might happen: 0 = Not at all Total NONA-7 score (0-4 normal; 5-9 mild; 10-14 moderate; 15-21 severe): 0 Source: Developed by Drs. Carrington Alvarez, Sandy Chambers, William Sanders and colleagues, with an educational carson from [employer]. NONA-7 Assessment Billing NONA-7 Assessment Tool: NONA-7 Assessment 61794 Review of Systems Const Denies chills, Denies fatigue, Denies fever(s), Denies headache(s), Denies malaise and Denies weakness Eyes Denies blurry vision, Denies change in vision, Denies irritation and Denies itchy eyes ENT Denies dysphagia, Denies dizziness, Denies otalgia, Denies headache(s), Denies nasal congestion, Denies neck pain, Denies odynophagia and Denies sore throat Card Denies chest pain, Denies rapid heart rate, Denies irregular heart rhythm, Denies palpitations and Denies dyspnea Resp Denies chest congestion, Denies cough, Denies dyspnea and Denies wheezing GI Denies abdominal pain, Denies bloating, Denies constipation, Denies dysphagia, Denies heartburn, Denies diarrhea, Denies nausea, Denies odynophagia and Denies vomiting Denies hematuria, Denies difficulty urinating, Denies dysuria, Denies urinary frequency and Denies urinary urgency Musc Denies back pain, Denies arthralgias, Denies joint swelling, Denies muscle weakness and Denies neck pain Skin/Breast Denies change in pigmentation, Denies lesions, Denies rash and Denies unusual bruising Neuro Denies dizziness, Denies headache(s), Denies paresthesias and Denies weakness Endo Denies fatigue and Denies palpitations Aller/Immun Denies itchy eyes and Denies wheezing Physical exam (Primary Care) Vital Signs: Last Vital Signs Pulse 76 08/26/23 12:46 BP 100/64 08/26/23 12:46 Pulse Ox 97 08/26/23 12:46 Oxygen Delivery Method Room Air 08/26/23 12:46 BMI result Body Mass Index 35.2 Tobacco/Smoking Status: Tobacco use Status Tobacco use date assessed 08/26/23 08/26/23 12:49 Patient Tobacco Use Status Never used Tobacco 08/26/23 12:49 e-Cigarette/Vaping Use Never Used 08/26/23 12:49 PHQ-9: PHQ-9 Score PHQ-9: Total score 0 11/23/23 21:50 Depression Screening Interpretation: Negative Thrive Assessment: Date of Thrive Assessment Date Thrive assessed 08/26/23 08/26/23 12:52 Currently or been in a relationship where the following occur: no concerns reported Const General: no acute distress, alert and awake Orientation/consciousness: patient oriented x3 HENMT Head: Yes normocephalic and Yes atraumatic Ears: external ears normal, TM's normal bilaterally and EAC's normal General nose exam: No nasal discharge present Face and sinus: Yes normal facial exam and Yes sinuses nontender Teeth and gingiva: dentition normal Throat: Yes posterior oropharynx normal and Yes tonsils normal (no TP congestion) Eyes Eyelids: Yes eyelids normal Conjunctivae: conjunctivae normal Pupils: Equal, round and reactive pupils present EOM: EOMs intact bilaterally Neck Neck: Yes no lymphadenopathy and Yes supple Thyroid: Thyroid normal Carotids: no bruits Resp Auscultation: clear to auscultation bilaterally, no rales and no wheezes Cardio Rate: regular rate Rhythm: abnormal rhythm irregularly irregular Heart sounds: no murmurs GI Palpation (GI): Soft to palpation, nontender and No hepatosplenomegaly present Auscultation: normal bowel sounds General: Yes no CVA tenderness Back/Spine/Pelvis Back: no CVA tenderness Cervical Spine: Cervical spine tenderness (mild) Thoracic/Lumbar Spine: No lumbar spinal tenderness Skin Lesions: no lesions Rashes: no rashes Neuro General: patient oriented x3, moves all extremities, no focal motor deficits and CN's II-XI intact bilaterally Cranial nerves: Yes Equal, round and reactive pupils present Cognition (Neuro): normal cognition Gait exam (Neuro): Normal gait present Extrem General: Yes no clubbing, cyanosis or edema Results Reviewed Results Reviewed: Laboratory Tests 08/14/23 08:19 Sodium 140 Potassium 4.2 Creatinine 1.05 Estimated GFR > 60 Fasting Glucose 115 H Hemoglobin A1c % 5.9 Calcium 9.2 AST 21 ALT 27 Triglycerides 69 Cholesterol 161 LDL Cholesterol, Calc 107 H HDL Cholesterol 41 Assessment and Plan Assessment & Plan (1) Annual physical exam: Code(s): Z00.00 - Encounter for general adult medical examination without abnormal findings Plan: Results of his labs done a couple of weeks ago reviewed and discussed with patient He is up-to-date with his screening colonoscopy (2) Pure hypercholesterolemia: Code(s): E78.00 - Pure hypercholesterolemia, unspecified Plan: Reinforced low cholesterol diet Continue Atorvastatin 10 mg QD Will recheck his labs and fasting lipids again in 4 months for follow up (3) Persistent atrial fibrillation: Comment: Patient has failed rhythm control in the past with cardioversion and antiarrhythmic drug therapy Code(s): I48.19 - Other persistent atrial fibrillation Plan: Patient remains in atrial fibrillation but is rate-controlled Continue Diltiazem 240 mg QD Follow up with cardiology as scheduled Echocardiogram done back in June 2020 to assess cardiac function and chamber size came back normal except for mild biatrial enlargement Repeat echocardiogram done in May 2022 came out normal as well - left ventricular systolic function is normal and?the calculated ejection fraction is 61% by biplane method. No obvious valvular pathology seen on this study.? ? Has reportedly been advised by cardiology that he may need to pursue rhythm control again in the future (4) Impaired fasting glucose: Code(s): R73.01 - Impaired fasting glucose Plan: HgbA1c was at 5.9% on his labs done a couple of weeks ago; was at 5.8% when previously checked Reinforced low calorie diet/exercise as tolerated Will continue to monitor his FBS and HgbA1c regularly (5) Obstructive sleep apnea: Code(s): G47.33 - Obstructive sleep apnea (adult) (pediatric) Plan: Sleep study done back in April 2016 showed moderately severe YULISSA Patient has not been able to tolerate any CPAP device thus far; feels that he has been doing okay lately and that his symptoms have improved a lot since he changed his bed a couple of years ago and is now sleeping in more of a semi-reclining position at night, which helps to correct some of his breathing issues when he is sleeping Have recommended that he should get this rechecked again, either with a repeat sleep study OR a formal referral to sleep medicine for further evaluation and management - patient states that he will call for referral when he is ready to do so (6) Osteoarthritis of knees, bilateral: Code(s): M17.0 - Bilateral primary osteoarthritis of knee Qualifiers: Osteoarthritis type: primary Qualified Code(s): M17.0 - Bilateral primary osteoarthritis of knee Plan: Continue OTC Tylenol or Advil PRN for pain Follow up with orthopedics as scheduled (7) Carpal tunnel syndrome: Code(s): G56.00 - Carpal tunnel syndrome, unspecified upper limb Qualifiers: Laterality: bilateral Qualified Code(s): G56.03 - Carpal tunnel syndrome, bilateral upper limbs Plan: He is encouraged again to continue using his wrist braces as needed to help minimize his wrist symptoms To consider referral to rheumatology (used to see Dr. Overton at [facility] [place] several years ago) or orthopedics if his symptoms progress or worsen (8) Vitamin D deficiency: Code(s): E55.9 - Vitamin D deficiency, unspecified Plan: Continue Vitamin D3 2000 units QD (9) Obesity (BMI 30-39.9): Code(s): E66.9 - Obesity, unspecified Plan: Reinforced diet/exercise as tolerated/lose weight Plan Follow up in 4 months Orders: Orders Comprehensive [place]. Panel Fast 4 Months E78.00 - Pure hypercholesterolemia, unspecified, Z00.00 - Encounter for general adult medical examination without abnormal findings Prostate Specific Antigen 4 Months N40.0 - Benign prostatic hyperplasia without lower urinary tract symptoms, Z00.00 - Encounter for general adult medical examination without abnormal findings Vitamin D 25-OH Total 4 Months E55.9 - Vitamin D deficiency, unspecified, Z00.00 - Encounter for general adult medical examination without abnormal findings Complete Blood Count Auto Diff 4 Months D64.9 - Anemia, unspecified, Z00.00 - Encounter for general adult medical examination without abnormal findings Lipid Panel 4 Months E78.00 - Pure hypercholesterolemia, unspecified, Z00.00 - Encounter for general adult medical examination without abnormal findings TSH reflex Free T4 4 Months E78.00 - Pure hypercholesterolemia, unspecified, Z00.00 - Encounter for general adult medical examination without abnormal findings UA CC w/rflx Micro + Cult 4 Months R30.0 - Dysuria, Z00.00 - Encounter for general adult medical examination without abnormal findings Hemoglobin A1c 4 Months Z00.00 - Encounter for general adult medical examination without abnormal findings, R73.01 - Impaired fasting glucose Coding Level of Care Code Est Pt Prev Care 40-64y(90209) Diagnoses Annual physical exam Z00.00 Pure hypercholesterolemia E78.00 Persistent atrial fibrillation I48.19 Impaired fasting glucose R73.01 Obstructive sleep apnea G47.33 Primary osteoarthritis of both knees M17.0 Osteoarthritis type: primary Bilateral carpal tunnel syndrome G56.03 Laterality: bilateral Vitamin D deficiency E55.9 Obesity (BMI 30-39.9) E66.9 Additional Codes NONA-7 Assessment Billing - NONA-7 Assessment Tool: NONA-7 Assessment [id number] ([id number])
== END 2023-08-26 13:32 | disposition home or self-care (01) ==
PROVIDERS: PCP Internal Medicine; Visit Provider Internal Medicine
DX: Z00.00 Encounter for general adult medical examination without abnormal findings (principal); E78.00 Pure hypercholesterolemia, unspecified; I48.19 Other persistent atrial fibrillation; R73.01 Impaired fasting glucose; G47.33 Obstructive sleep apnea (adult) (pediatric); M17.0 Bilateral primary osteoarthritis of knee; G56.03 Carpal tunnel syndrome, bilateral upper limbs; E55.9 Vitamin D deficiency, unspecified; E66.9 Obesity, unspecified
CPT/HCPCS: 99499

== ENCOUNTER 2023-12-21 09:05 | Outpatient (AMB) | payer BC, SELFPAY ==
[2023-12-21 09:09] VITALS: BP 138/82; PULSE 73; TEMP 36.4; O2SAT 95; BMI 34.6
--- NOTE | 2023-12-21 09:09 | AM.OFFWIN_ITS ---
Intake Vital Signs 12/21/23 09:09 Height 5 ft 10 in Weight 241 lb 6 oz BMI 34.6 BP 138/82 Blood Pressure Location Lt brachial Position Sitting Pulse 73 Pulse Source Pulse Oximeter Temp 97.6 F Temp Source Oral Pulse Oximetry (%) 95 Oxygen Delivery Method Room Air Intake Visit Reasons: EP Cough 1m/lung pain Intake Note: Pt presents to the office today for a dry cough that has been going on for 1 month. Pt states his right side of his back is hurting everytime he coughs or touches his back. Pt states he was given a Z-Pack that didn't help. Patient Tobacco Use Status: Never used Tobacco Allergies codeine [CODEINE] Allergy (Severe, Verified 12/21/23 09:12) HIVES ibuprofen [From MOTRIN] Allergy (Severe, Verified 12/21/23 09:12) HIVES HPI HPI Comments History of Present Illness Details Patient is a 58-year-old male complaining of a cough for the last month, he denies any fevers, head congestion, sinus pain, ear pain or headaches. Pt states he was given a Z-Pack that didn't help. He states the cough is worse after he eats or when he lays down at night. He tells me he needs to sit up right for a little while to get the coughing to stop. Pt states his right side of his low back hurts every time he coughs or touches his back. Patient also noting a bulge in his abdomen every time he coughs, he is curious as to what this is as it has been there for as long as he can remember. He denies any pain in the area and states it does go back to normal when he stops coughing. [facility] Medical History Vitamin D deficiency Persistent atrial fibrillation Obesity (BMI 30-39.9) Carpal tunnel syndrome Osteoarthritis of knees, bilateral Obstructive sleep apnea Pure hypercholesterolemia Impaired fasting glucose Surgical History Hx of colonoscopy History of surgery Family History Father CVD (cardiovascular disease) Cancer Mother Medical history unknown Social History Housing: House Alcohol intake: current Alcohol intake frequency: holidays/special occasions only Patient Tobacco Use Status: Never used Tobacco e-Cigarette/Vaping Use: Never Used Second Hand Smoke Exposure: Yes service: No Current occupational status: employed Current occupation: [employer] Cognitive needs: No Hearing needs: No Vision needs: No Review of Systems Const All systems reviewed & are unremarkable except as noted in HPI and below Physical Exam Vital Signs: Last Vital Signs Temp 97.6 F 12/21/23 09:09 Pulse 73 12/21/23 09:09 BP 138/82 12/21/23 09:09 Pulse Ox 95 12/21/23 09:09 Oxygen Delivery Method Room Air 12/21/23 09:09 BMI result Body Mass Index 34.6 Const General: cooperative, healthy appearing, comfortable and no acute distress Orientation/consciousness: patient oriented x3 Limitations: no limitations HEENT Head: Yes normal to inspection Ears: hearing grossly normal bilaterally and external ears normal General nose exam: Normal external nose present, Normal nares present and No nasal discharge present Face and sinus: Yes normal facial exam Eyes General: appearance normal, both eyes and all related structures Neck Neck: Yes normal visual inspection Resp Effort & Inspection: normal respiratory effort, able to speak in complete sentences, Actively coughing, no respiratory distress, not tachypneic, no tripod positioning and no use of accessory muscles Auscultation: clear to auscultation bilaterally Cardio Rate: regular rate Rhythm: regular rhythm Heart sounds: normal S1 and S2 GI Inspection: Yes visible herniation (ventral hernia) Back/Spine/Pelvis Other: Right side mid to low back, tenderness to palpation when patient is coughing Skin General skin exam: no rashes or lesions noted Neuro General: patient oriented x3 Extrem General: Yes normal to inspection and Yes no clubbing, cyanosis or edema Assessment & Plan Assessment & Plan (1) Cough: Code(s): R05.9 - Cough, unspecified Qualifiers: Cough type: unspecified Qualified Code(s): R05.9 - Cough, unspecified Plan: Cough is likely secondary to GERD, recommended patient trial omeprazole twice a day for 1 week and then go down to once a day. However, we will get a chest x- ray just to rule out anything else as his last CXR was 2021. Recommended he follow up with his PCP if no improvement in his symptoms or if it does work, to consider further workup such as upper endoscopy. (2) Ventral hernia: Code(s): K43.9 - Ventral hernia without obstruction or gangrene Qualifiers: Obstruction and gangrene presence: without obstruction or gangrene Qualified Code(s): K43.9 - Ventral hernia without obstruction or gangrene Plan: Discussed this with the patient, he has no pain in the area, recommended he follow up with his PCP if it ever becomes painful. Plan see above Orders: Orders SARS-CoV2/FLU/RSV Today R09.89 - Other specified symptoms and signs involving the circulatory and respiratory systems XR chest 2V Today R05.9 - Cough, unspecified Coding Level of Care Code Est Pt Level 4 (31335) Diagnoses Cough, unspecified type R05.9 Cough type: unspecified Ventral hernia without obstruction or gangrene K43.9 Obstruction and gangrene presence: without obstruction or gangrene
== END 2023-12-21 09:34 | disposition home or self-care (01) ==
PROVIDERS: PCP Internal Medicine; Visit Provider Physician Assistant
DX: R05.9 Cough, unspecified (principal); K43.9 Ventral hernia without obstruction or gangrene

== ENCOUNTER 2023-12-21 09:05 | Outpatient (REF) | payer BC, SELFPAY ==
[2023-12-21 11:02] LABS: Influenza A PCR NEGATIVE (Negative); Influenza B PCR NEGATIVE (Negative); Resp Syncy Virus RNA Qual PCR NEGATIVE (Negative); SARS COV2 PCR INHOUSE NEGATIVE (Negative)
== END 2023-12-21 09:06 | disposition home or self-care (01) ==
LOC: HO.LAB 09:05
PROVIDERS: PCP Internal Medicine; Visit Provider Physician Assistant
DX: R09.89 Other specified symptoms and signs involving the circulatory and respiratory systems (principal); R05.8 Other specified cough
CPT/HCPCS: 0241U

== ENCOUNTER 2023-12-21 09:28 | Outpatient (REF) | payer BC, SELFPAY ==
--- NOTE | ~2023-12-21 | XR_ITS ---
EXAMINATION: XR CHEST CLINICAL INFORMATION: Cough COMPARISON: 10/03/2021 TECHNIQUE: 2 views of the chest were obtained. FINDINGS: No significant abnormality is noted involving the heart, lungs, mediastinum, bony thorax or soft tissues. There is mild scoliosis convex to the right. XR/XR chest 2V IMPRESSION: Unremarkable examination. Electronically signed by: Diogo Dudley MD 12/21/2023 10:32 AM EDT
== END 2023-12-21 09:29 | disposition home or self-care (01) ==
LOC: HO.HMGCX 09:28
PROVIDERS: PCP Internal Medicine; Visit Provider Physician Assistant
DX: R05.9 Cough, unspecified (principal)
CPT/HCPCS: 71046

== ENCOUNTER 2023-12-24 07:51 | Outpatient (REF) | payer BC, SELFPAY ==
[2023-12-24 08:10] LABS: MANUAL DIFF FLAG NO
[2023-12-24 08:40] LABS: Basophils Percent Auto 0.5 % (0-2); Eosinophils Absolute Auto 0.2 X10*3/uL (0.0-0.4); Hemoglobin 14.1 g/dl (14.0-18.0); Imm Gran Abs Auto 0.02 X10*3/uL (0.00-0.03); Imm Gran Pct Auto 0.3 % (0.0-0.4); Lymphocytes Absolute Auto 1.9 X10*3/uL (1.2-4.9); Lymphocytes Percent Auto 32.1 % (20-40); Mean Corpuscular HGB Conc 35.3 g/dl (31.0-36.0); Mean Corpuscular Hemoglobin 32.2 pg (27.0-33.0); Mean Corpuscular Volume 91.3 fL (80.0-98.0); Mean Platelet Volume 9.9 fL (9.4-12.4); Monocytes Absolute Auto 0.5 X10*3/uL (0.1-1.2); Monocytes Percent Auto 7.8 % (2-11); Neutrophils Absolute Auto 3.4 x10*3/uL (2.0-8.3); Neutrophils Percent Auto 56.3 % (45-73); Platelet Count 209 X10*3/uL (160-400); Red Blood Count 4.38 X10*6/uL (4.60-5.80); Red Cell Distribution Width 11.5 % (11.0-16.0)
[2023-12-24 08:41] LABS: Appearance Urine Clear; Color Urine Dark Yellow; Glucose Urine UA Negative (Negative); Leukocyte Esterase Urine Trace (Negative); Nitrite Urine Negative (Negative); PH 5.5 (5.0-9.0); Specific Gravity - Urine 1.025 (1.005-1.025); UMIC TRIGGER UACC YES; Urine Blood Negative (Negative); Urine Ketones Trace mg/dL (Negative); Urine Protein 30 (1+) mg/dL (Neg-Trace)
[2023-12-24 08:56] LABS: Bacteria Urine None Seen (None Seen); RBC Urine 0-2 /HPF (0-2); Squamous Epithelial Cell Urine 0-2 /HPF (0-2); WBC Urine 0-5 /HPF (0-5)
[2023-12-24 09:21] LABS: Alanine Aminotransferase 26 U/L (0-40); Albumin Level 3.9 g/dL (3.5-5.0); Alkaline Phosphatase 58 U/L (39-117); Anion Gap 13 (12-20); Aspartate Amino Transferase 21 U/L (5-37); Bilirubin Total 0.7 mg/dL (0.0-1.0); Blood Urea Nitrogen 15 mg/dL (9-16); Calcium 8.8 mg/dL (8.4-10.2); Carbon Dioxide 21 mmol/L (22-29); Chloride 107 mmol/L (96-108); Cholesterol 186 mg/dL (<200); Estimated Glomerular Filt Rate > 60; Glucose Fasting 118 mg/dL (60-99); HDL Cholesterol 44 mg/dL (>40); LDL Cholesterol Calculated 116 mg/dL (<100); Potassium 3.8 mmol/L (3.3-5.1); Sodium 137 mmol/L (135-145); Total Protein 7.3 g/dL (6.5-8.0); Triglycerides 134 mg/dL (<150)
[2023-12-24 09:25] LABS: TSH reflex Free T4 2.14 uIU/mL (0.32-4.0); Vitamin D 25-OH Total 50.9 ng/mL (>30)
[2023-12-24 10:49] LABS: Estimated Average Glucose 123 mg/dL; Hemoglobin A1C 140.4203 umol/L; Hemoglobin A1c % 5.9 % (<6.0); Total Hemoglobin (HGBA1C) 3400.1938 umol/L
== END 2023-12-24 07:52 | disposition home or self-care (01) ==
LOC: HO.LAB 07:51
PROVIDERS: PCP Internal Medicine; Visit Provider Internal Medicine
DX: Z00.00 Encounter for general adult medical examination without abnormal findings (principal); E55.9 Vitamin D deficiency, unspecified; D64.9 Anemia, unspecified; E78.00 Pure hypercholesterolemia, unspecified; N40.0 Benign prostatic hyperplasia without lower urinary tract symptoms; R73.01 Impaired fasting glucose; Z12.5 Encounter for screening for malignant neoplasm of prostate
CPT/HCPCS: 36415; 80053; 80061; 81001; 82306; 83036; 84153; 84443; 85025

== ENCOUNTER 2023-12-28 16:49 | Outpatient (AMB) | payer BC, SELFPAY ==
[2023-12-28 16:50] VITALS: BP 118/72; PULSE 56; O2SAT 96; BMI 34.8
--- NOTE | 2023-12-28 16:50 | MHC.PC.OV ---
Vital Signs 12/28/23 16:50 Height 5 ft 10 in Weight 242 lb 6 oz BMI 34.8 BP 118/72 Blood Pressure Location Lt brachial Position Sitting Pulse 56 Pulse Source Pulse Oximeter Pulse Oximetry (%) 96 Oxygen Delivery Method Room Air Intake Visit Reasons: [facility] f/u Hyster Driver Required: No Accompanied by: Self / Same As Patient Allergies codeine [CODEINE] Allergy (Severe, Verified 12/28/23 17:10) HIVES ibuprofen [From MOTRIN] Allergy (Severe, Verified 12/28/23 17:10) HIVES Medication List - Last Reconciled 12/28/23 by Henok Cornejo MD atorvastatin 10 mg PO DAILY cholecalciferol (vitamin D3) 50 mcg PO DAILY 90 days diltiazem HCl CD 240 mg PO DAILY Tobacco use date assessed: 12/28/23 Dental Screening Dental Screen Date: 12/28/23 Did you have a dental visit in the last 12 months?: No Did you have a dental problem in the last 6 months where you did not have access to dental care?: No Was dental information given to patient?: No HPI [facility] f/u HPI Details Patient comes in today for his follow up visit States that he currently feels okay Relates that he's had a recurrent dry cough for weeks and that the Z-yovanny that we called in for him about 3 weeks ago as he was about to leave for his vacation did not help at all He went to the walk-in clinic last week and was started on a trial of Omeprazole, which he started taking BID for 1 week and is now down to QD dosing Feels that his recurrent cough is now just starting to improve He denies any fevef or sore throat He denies any headaches or dizziness Denies any chest pains, no increased SOB No nausea/vomiting, no abdominal pain No change in bowel habits noted He had his follow up labs done a few days ago - to discuss his results [facility] Medical History Diastasis recti GERD without esophagitis Vitamin D deficiency Persistent atrial fibrillation Obesity (BMI 30-39.9) Carpal tunnel syndrome Osteoarthritis of knees, bilateral Obstructive sleep apnea Pure hypercholesterolemia Impaired fasting glucose Surgical History Hx of colonoscopy History of surgery Family History Father CVD (cardiovascular disease) Cancer Mother Medical history unknown Social History Housing: House Alcohol intake: current Alcohol intake frequency: holidays/special occasions only Patient Tobacco Use Status: Never used Tobacco e-Cigarette/Vaping Use: Never Used Second Hand Smoke Exposure: Yes service: No Current occupational status: employed Current occupation: [employer] Cognitive needs: No Hearing needs: No Vision needs: No Questionnaire PHQ-9 Over the last 2 weeks, how often have you been bothered by any of the following problems? 1. Little interest or pleasure in doing things: not at all 2. Feeling down, depressed, or hopeless: not at all 3. Trouble falling or staying asleep, or sleeping too much: not at all 4. Feeling tired or having little energy: not at all 5. Poor appetite or overeating: not at all 6. Feeling bad about yourself - or that you are a failure or have let yourself or your family down: not at all 7. Trouble concentrating on things, such as reading the newspaper or watching television: not at all 8. Moving or speaking so slowly that other people could have noticed. Or the opposite - being so fidgety or restless that you have been moving around a lot more than usual: not at all 9. Thoughts that you would be better off or of hurting yourself in some way: not at all Total score: 0 Depression Screening Interpretation: Negative Depression Screening Done: Yes 80063 - PHQ-9 Billing: Yes Source: Developed by Drs. Carrington Alvarez, Sandy Chambers, William Sanders and colleagues, with an educational carson from [employer]. Thrive Questionnaire Date Thrive assessed: 12/28/23 I am a: Patient What is your living situation today?: I have a steady place to live Within the past 12 months, did the food you bought not last and you didn't have the money to get more?: Never true Within the past 12 months, did you worry whether your food would run out before you got money to buy more?: Never true Do you have trouble paying for medicines?: No Do you have trouble getting transportation to medical appointments?: No Do you have trouble paying your heating and electricity bill?: No Do you have trouble taking care of your child, family member or friend?: No Do you have trouble with day-to-day activities such as bathing, preparing meals, shopping, managing finances, etc.?: No Are you currently unemployed and looking for a job?: No Are you interested in more education?: No Please select the resources that you would like help with: None Currently or been in a relationship where the following occur: No concerns reported THRIVE Score: 0 AUDIT C Alcohol Use Questionnaire (AUDIT-C) 1. How often do you have a drink containing alcohol?: Monthly or less 2. How many drinks containing alcohol do you have on a typical day when you are drinking?: 1 or 2 3. How often do you have six or more drinks on one occasion?: Never Total Score: 1 Score Reviewed/Action Taken: Yes NONA-7 AMB Questionnaire NONA-7 Date NONA - 7 assessed: 12/28/23 Feeling nervous, anxious, or on edge: 0 = Not at all Not being able to stop or control worryin = Not at all Worrying too much about different things: 0 = Not at all Trouble relaxin = Not at all Being so restless that it is hard to sit still: 0 = Not at all Becoming easily annoyed or irritable: 0 = Not at all Feeling afraid as if something awful might happen: 0 = Not at all Total NONA-7 score (0-4 normal; 5-9 mild; 10-14 moderate; 15-21 severe): 0 Source: Developed by Drs. Carrington Alvarze, Sandy Chambers, William Sanders and colleagues, with an educational carson from [employer]. NONA-7 Assessment Billing NONA-7 Assessment Tool: NONA-7 Assessment 16021 Review of Systems Const Denies chills, Denies fatigue, Denies fever(s) and Denies headache(s) ENT Denies dysphagia, Denies dizziness, Denies otalgia, Denies headache(s), Denies neck pain, Denies odynophagia and Denies sore throat Card Denies chest pain, Denies rapid heart rate, Denies irregular heart rhythm, Denies palpitations and Denies dyspnea Resp Denies chest congestion, Reports cough (recurrent, non-productive - improving recently on Rx), Denies dyspnea and Denies wheezing GI Denies abdominal pain, Denies constipation, Denies dysphagia, Denies heartburn, Denies diarrhea, Denies nausea, Denies odynophagia and Denies vomiting Denies difficulty urinating, Denies dysuria and Denies urinary frequency Musc Denies back pain, Denies arthralgias and Denies neck pain Skin/Breast Denies rash Neuro Denies dizziness, Denies headache(s) and Denies paresthesias Endo Denies fatigue and Denies palpitations Aller/Immun Denies wheezing Physical exam (Primary Care) Vital Signs: Last Vital Signs Pulse 56 12/28/23 16:50 BP 118/72 12/28/23 16:50 Pulse Ox 96 12/28/23 16:50 Oxygen Delivery Method Room Air 12/28/23 16:50 BMI result Body Mass Index 34.8 Tobacco/Smoking Status: Tobacco use Status Tobacco use date assessed 12/28/23 12/28/23 16:53 Patient Tobacco Use Status Never used Tobacco 12/28/23 16:53 e-Cigarette/Vaping Use Never Used 12/28/23 16:53 PHQ-9: PHQ-9 Score PHQ-9: Total score 0 12/28/23 17:29 Depression Screening Interpretation: Negative Thrive Assessment: Date of Thrive Assessment Date Thrive assessed 12/28/23 12/28/23 16:53 Currently or been in a relationship where the following occur: No concerns reported Const General: no acute distress and alert HENMT Ears: TM's normal bilaterally and EAC's normal Throat: Yes posterior oropharynx normal and Yes tonsils normal (no TP congestion) Neck Neck: Yes no lymphadenopathy and Yes supple Thyroid: Thyroid normal Resp Auscultation: clear to auscultation bilaterally, no rales and no wheezes Cardio Rate: regular rate Rhythm: abnormal rhythm irregularly irregular Heart sounds: no murmurs GI Other: (+) recurrent visible bulge along the midline of the abdomen, mostly when the abdominal muscles are contracted Palpation (GI): Soft to palpation and nontender Auscultation: normal bowel sounds General: Yes no CVA tenderness Back/Spine/Pelvis Back: no CVA tenderness Thoracic/Lumbar Spine: No lumbar spinal tenderness Skin Rashes: no rashes Extrem General: Yes no clubbing, cyanosis or edema Results Reviewed Results Reviewed: Laboratory Tests 12/24/23 12/24/23 08:08 08:09 WBC 6.0 Hgb 14.1 Hct 40.0 L Plt Count 209 Sodium 137 Potassium 3.8 Creatinine 0.90 Estimated GFR > 60 Fasting Glucose 118 H Hemoglobin A1c % 5.9 Calcium 8.8 AST 21 ALT 26 Triglycerides 134 Cholesterol 186 LDL Cholesterol, Calc 116 H HDL Cholesterol 44 Prostate Specific Ag 1.20 25-OH Vitamin D Total 50.9 TSH 2.14 Ur Specific [place] 1.025 Urine Protein 30 (1+) H Urine Glucose (UA) Negative Urine Blood Negative Urine Nitrite Negative Ur Leukocyte Esterase Trace H Coding Level of Care Code Est Pt Level 4 (85969) Diagnoses Recurrent nonproductive cough R05.8 Gastroesophageal reflux disease without esophagitis K21.9 Esophagitis presence: without esophagitis Pure hypercholesterolemia E78.00 Persistent atrial fibrillation I48.19 Impaired fasting glucose R73.01 Obstructive sleep apnea G47.33 Diastasis recti M62.08 Primary osteoarthritis of both knees M17.0 Osteoarthritis type: primary Bilateral carpal tunnel syndrome G56.03 Laterality: bilateral Vitamin D deficiency E55.9 Obesity (BMI 30-39.9) E66.9 Additional Codes NONA-7 Assessment Billing - NONA-7 Assessment Tool: NONA-7 Assessment 22205 ([id number]) Assessment & Plan Assessment & Plan (1) Recurrent nonproductive cough: Code(s): R05.8 - Other specified cough Category: Medical Plan: Patient feels that his recurrent cough is finally starting to improve with the Omeprazole that he has been taking Have advised him that this is then most likely due to reflux disease consistent with what he was told at the walk-in clinic last week He had chest x-rays done last week that came out normal He was also trialed on Azithromycin a few weeks ago with no improvement Have advised patient to continue on Omeprazole 20 mg QD for now Will refer him to GI for consideration for EGD but advised that if his symptoms are improving on Rx, there may not really be a need to perform EGD at this time (2) GERD (gastroesophageal reflux disease): Comment: . Small sliding hiatal hernia on barium swallow, he did not find pantoprazole terribly helpful but his main problem is not with heartburn but with bloating. Code(s): K21.9 - Gastro-esophageal reflux disease without esophagitis Category: Medical Qualifiers: Esophagitis presence: without esophagitis Qualified Code(s): K21.9 - Gastro-esophageal reflux disease without esophagitis Plan: Dietary restrictions reinforced Have reminded patient that the barium swallow that he did back in December 2021 revealed (+) small hiatal hernia and gastroesophageal reflux Continue Omeprazole 20 mg QD (3) Pure hypercholesterolemia: Code(s): E78.00 - Pure hypercholesterolemia, unspecified Category: Medical Plan: Results of his labs done a few days ago reviewed and discussed with patient Reinforced low cholesterol diet Continue Atorvastatin 10 mg QD Will recheck his labs and fasting lipids again in 4 months for follow up (4) Persistent atrial fibrillation: Comment: Patient has failed rhythm control in the past with cardioversion and antiarrhythmic drug therapy Code(s): I48.19 - Other persistent atrial fibrillation Category: Medical Plan: Patient remains in atrial fibrillation but is rate-controlled Continue Diltiazem 240 mg QD Echocardiogram done back in June 2020 to assess cardiac function and chamber size came back normal except for mild biatrial enlargement Repeat echocardiogram done in May 2022 came out normal as well - left ventricular systolic function is normal and?the calculated ejection fraction is 61% by biplane method. No obvious valvular pathology seen on this study He has reportedly been advised by cardiology that he may need to pursue rhythm control again in the future Follow up with cardiology as scheduled (5) Impaired fasting glucose: Code(s): R73.01 - Impaired fasting glucose Category: Medical Plan: His HgbA1c was unchanged from previous at 5.9% on his labs done a few days ago Reinforced low calorie diet/exercise as tolerated Will continue to monitor his FBS and HgbA1c regularly (6) Obstructive sleep apnea: Code(s): G47.33 - Obstructive sleep apnea (adult) (pediatric) Category: Medical Plan: Sleep study done back in April 2016 showed moderately severe YULISSA Patient has not been able to tolerate any CPAP device thus far; feels that he has been doing okay lately and that his symptoms have improved a lot since he changed his bed a couple of years ago and is now sleeping in more of a semi-reclining position at night, which helps to correct some of his breathing issues when he is sleeping Have recommended that he should get this rechecked again, either with a repeat sleep study OR a formal referral to sleep medicine for further evaluation and management - patient states that he will call for referral when he is ready to get this checked into again (7) Diastasis recti: Code(s): M62.08 - Separation of muscle (nontraumatic), other site Category: Medical Plan: Have advised patient that what he currently has is NOT A HERNIA but is a result of the separation of the rectus abdominis muscles Have explained to him that the abdominal muscles are divided by a band of tissues called the linea alba that runs down the middle of the abdomen, and as a result of abdominal enlargement or distention from whatever the cause is, in this case his increased abdominal girth, the abdominals are stretched and the linea alba thins and pulls apart. This band of tissue gets wider as it's pushed outward and if this goes on for a long time and the tissue loses its elasticity from being overstretched constantly, the gap in the abdominals will not close as much as it should anymore, resulting in this condition Have advised patient that surgery is rarely performed to fix diastasis recti and that we usually recommend physical therapy or at-home exercises to help heal diastasis and reserve surgical methods only as a last resort In this case, have advised patient that whatever he can do to help reduce his abdominal size/girth will definitely be helpful (8) Osteoarthritis of knees, bilateral: Code(s): M17.0 - Bilateral primary osteoarthritis of knee Category: Medical Qualifiers: Osteoarthritis type: primary Qualified Code(s): M17.0 - Bilateral primary osteoarthritis of knee Plan: Continue OTC Tylenol or Advil PRN for pain Follow up with orthopedics as scheduled (9) Carpal tunnel syndrome: Code(s): G56.00 - Carpal tunnel syndrome, unspecified upper limb Category: Medical Qualifiers: Laterality: bilateral Qualified Code(s): G56.03 - Carpal tunnel syndrome, bilateral upper limbs Plan: He is encouraged again to continue using his wrist braces as needed to help minimize his wrist symptoms To consider referral to rheumatology (used to see Dr. Overton at [facility] several years ago) or orthopedics if his symptoms progress or worsen (10) Vitamin D deficiency: Code(s): E55.9 - Vitamin D deficiency, unspecified Category: Medical Plan: Continue Vitamin D3 2000 units QD (11) Obesity (BMI 30-39.9): Code(s): E66.9 - Obesity, unspecified Category: Medical Plan: Reinforced diet/exercise as tolerated/lose weight Plan Follow up in 4 months Orders: Orders Complete Blood Count Auto Diff 4 Months D64.9 - Anemia, unspecified Microalbumin, Random (w Creat) 4 Months E11.9 - Type 2 diabetes mellitus without complications Comprehensive [place]. Panel Fast 4 Months E78.00 - Pure hypercholesterolemia, unspecified Lipid Panel 4 Months E78.00 - Pure hypercholesterolemia, unspecified TSH reflex Free T4 4 Months E78.00 - Pure hypercholesterolemia, unspecified UA CC w/rflx Micro + Cult 4 Months R30.0 - Dysuria Hemoglobin A1c 4 Months R73.01 - Impaired fasting glucose Referrals Gastroenterology Referral K21.9 - Gastro-esophageal reflux disease without esophagitis Medications: New omeprazole 20 mg PO DAILY 90 days 90 caps 1RF
== END 2023-12-28 17:34 | disposition home or self-care (01) ==
PROVIDERS: PCP Internal Medicine; Visit Provider Internal Medicine
DX: I48.19 Other persistent atrial fibrillation (principal); R05.8 Other specified cough; E66.811 Obesity, class 1; Z68.34 Body mass index [BMI] 34.0-34.9, adult; K21.9 Gastro-esophageal reflux disease without esophagitis; E78.00 Pure hypercholesterolemia, unspecified; R73.01 Impaired fasting glucose; G47.33 Obstructive sleep apnea (adult) (pediatric); M62.08 Separation of muscle (nontraumatic), other site; M17.0 Bilateral primary osteoarthritis of knee; G56.03 Carpal tunnel syndrome, bilateral upper limbs; E55.9 Vitamin D deficiency, unspecified

== ENCOUNTER → 2023-12-28 16:49 | Outpatient (BNVA) | payer BC, SELFPAY | PROVIDERS: PCP Internal Medicine; Visit Provider Internal Medicine | DX: R05.8 Other specified cough (principal); K21.9 Gastro-esophageal reflux disease without esophagitis; E78.00 Pure hypercholesterolemia, unspecified; I48.19 Other persistent atrial fibrillation; R73.01 Impaired fasting glucose; G47.33 Obstructive sleep apnea (adult) (pediatric); M62.08 Separation of muscle (nontraumatic), other site; M17.0 Bilateral primary osteoarthritis of knee; G56.03 Carpal tunnel syndrome, bilateral upper limbs; E55.9 Vitamin D deficiency, unspecified; E66.9 Obesity, unspecified; Z68.34 Body mass index [BMI] 34.0-34.9, adult; Z79.899 Other long term (current) drug therapy | CPT/HCPCS: 96127 ==

== ENCOUNTER 2024-02-03 14:12 | Outpatient (AMB) | payer BC, SELFPAY ==
--- NOTE | 2024-02-03 14:20 | A.OFFVIS_ITS ---
Vital Signs 02/03/24 14:38 Height 5 ft 10 in Weight 246 lb 7.629 oz BMI 35.4 BP 119/86 Blood Pressure Location Rt brachial Position Sitting Pulse 58 Intake Visit Reasons: Dysphagia Intake Note: Henok presents to office today for dysphagia. CC: Patient states that he was having a dry cough attacks for up to 45 minutes every time he ate or drink something. Patient states that he would have this cough episodes for a month they started on November and he would get dizzy and rib pain. He went to a walk in clinic and was told that it was acid reflux and advised to take Omeprazole 20 mg BID and the cough went away. He d/c the omeprazole about 3 weeks ago and has not have cough since. Patient also reports feeling bloated sometimes and that he does not burp much. Denies other GI symptoms today. 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 This also is controlling his GERD and he is not taking acid reducing medications. Since, I am not actively prescribing anything I will see him again for his 3 year colonoscopy recall. In general he expresses that he is very happy with our service and at weeks plain everything eventually solved his problem. He has especially happy that [id number] inexpensive medication was able to do the trick. Prn (2) Abdominal bloating: Code(s): R14.0 - Abdominal distension (gaseous) (3) GERD (gastroesophageal reflux disease): Comment: . Small sliding hiatal hernia on barium swallow, he did not find pantoprazole terribly helpful but his main problem is not with heartburn but with bloating. Code(s): K21.9 - Gastro-esophageal reflux disease without esophagitis BARIUM SWALLOW 01/02/22 IMPRESSION: Minimal laryngeal penetration when the patient swallows. No aspiration. Small hiatal hernia and gastroesophageal reflux. EGD 03/2022 Findings: Larynx: Normal Esophagus: An 8 to 10 mm benign appearing nodule in the proximal esophagus at 20 cms - biopsied. GE junction at 40 cms. No esophagitis or Genao's. Stomach: Mild gastric erythema. Biopsies were obtained. Grade 2 flap valve on retroflexed examination of the cardia. Duodenum: Normal bulb and descending duodenum. Biopsies were obtained from 3rd part of duodenum to check for celiac sprue. Received: 04/17/22 Diagnosis A. Small bowel, biopsy: Small bowel mucosa with preserved villi and no specific change; no evidence of celiac disease. B. Gastric antrum, biopsy: Gastric antral mucosa with rare chronic inflammatory cells; negative for active gastritis, H pylori, intestinal metaplasia and dysplasia. C. Esophagus, nodule at 20 cm, biopsy: Squamous mucosa with small lymphoid aggregate with crush artifact, otherwise no specific change; no columnar mucosa or dysplasia. ? TODAY'S VISIT Patient has been lost to follow-up since 06/2022 but apparently is here today for evaluation of dysphagia Actually, he denies dysphagia. He says that he developed a cough that would worsen whenever he ate or drank anything and initially he was treated with around a Zithromax that did not know good. After he was put back on omeprazole (she really dislikes taking medications even though it is known that he has chronic GERD) the cough finally resolved. After resolved he stopped the medication to ?see what happens? and so far has not come back but I feel that in time it likely will unless he can manage significant weight loss. I spent quite a bit of time educating him why weight gain makes GERD harder to control which included educating him about his false hernia or rectus abdominis and why this happens because sat tends to be deposited between the muscular layers. At time the thing that is bothering him the most is a feeling of gassiness and bloating. We would discuss this when I last saw him over a year ago and he did try [id number] Gas-X without any relief. I then educate him that there are many factors thickened cause this including possible exocrine pancreatic insufficiency, SIBO, or gas trapping from other factors including obesity. Will also get an ultrasound to make sure that he is not having gallbladder problems contributing to his GERD and his bloating. In the end he opts 1st to treat for potential SIBO and will do a round of Flagyl and then evaluate his response. We could go on to consider Creon depending on his response. In case that neither of these resolves it we could look at some less common problems such as food allergies but this seems unlikely given the fact that he moves his bowels well daily and they are formed without diarrhea. ROV 4 lweeks. [facility] Medical History (Updated 02/03/24 @ 16:55 by ARLET Chapin) Neck pain Colon cancer screening GERD without esophagitis Tightness of neck Cough Recurrent nonproductive cough Neck complaint Annual physical exam Ventral hernia Diastasis recti Vitamin D deficiency Persistent atrial fibrillation Obesity (BMI 30-39.9) Carpal tunnel syndrome Osteoarthritis of knees, bilateral Obstructive sleep apnea Pure hypercholesterolemia Impaired fasting glucose Surgical History Hx of colonoscopy History of surgery Family History Father CVD (cardiovascular disease) Cancer Mother Medical history unknown Social History Housing: House Alcohol intake: current Alcohol intake frequency: holidays/special occasions only Patient Tobacco Use Status: Never used Tobacco e-Cigarette/Vaping Use: Never Used Second Hand Smoke Exposure: Yes service: No Current occupational status: employed Current occupation: [employer] Cognitive needs: No Hearing needs: No Vision needs: No Review of Systems Const Denies fatigue, Denies fever(s), Denies night sweats, Denies poor appetite and Denies weight loss ENT Reports Normal hearing present, Denies dental pain, Denies dysphagia, Denies hearing loss, Denies mouth pain, Reports neck pain, Denies odynophagia, Denies throat swelling, Denies tongue swelling and Reports other (Dentition adequate) Card Reports no additional complaints Resp Reports cough GI Details: Denies abdominal pain, Denies melena, Reports bloating, Denies hematochezia, Denies constipation, Denies GI cramping, Denies dysphagia, Denies excessive flatus, Denies early satiety, Reports heartburn, Denies diarrhea, Denies nausea, Denies odynophagia, Denies vomiting and Denies hematemesis Musc Reports neck pain Skin/Breast Denies pruritus, Denies lesions, Denies rash and Denies jaundice Neuro Reports Normal hearing present and Denies Abnormal speech present Endo Denies fatigue Aller/Immun Denies throat swelling and Denies tongue swelling Physical Exam Vital Signs: Last Vital Signs Pulse 58 02/03/24 14:38 BP 119/86 02/03/24 14:38 BMI result Body Mass Index 35.4 Const General: cooperative, no acute distress, well developed and well groomed Nutritional Appearance: well nourished and obese (And morbidly obese) centrally obese Orientation/consciousness: oriented to person, oriented to place and oriented to time Limitations: No language barrier HEENT Head: Yes normocephalic and Yes atraumatic Eyes General: appearance normal, both eyes and all related structures Pupils: Equal, round and reactive pupils present Neck Neck: Yes normal visual inspection and Yes no lymphadenopathy Thyroid: Thyroid normal Resp Effort & Inspection: normal respiratory effort and able to speak in complete sentences Auscultation: clear to auscultation bilaterally Cardio Rate: regular rate Rhythm: regular rhythm Heart sounds: Normal, physiologic split S2 sound present Peripheral pulses: radial pulses present and posterior tibial pulses present GI Other: Evident rectus abdominis Inspection: No distended, Yes Abdominal panniculus present and Yes obesity Palpation (GI): Soft to palpation, nontender, no guarding, not rigid and No hepatosplenomegaly present Percussion: Yes normal to percussion Auscultation: normal bowel sounds Rectal Exam - Male: Yes deferred Skin General skin exam: no rashes or lesions noted, turgor normal, skin not dry, no jaundice, No spider nevi and no striae Rashes: no rashes Nails: normal Neuro General: oriented to person, oriented to place and oriented to time Cranial nerves: Yes Equal, round and reactive pupils present and Yes Normal hearing present Speech: No Abnormal speech present Extrem General: Yes normal to inspection, No clubbing, No cyanosis and No edema Psych Appearance: grossly normal and well kempt Mental Status: mental status grossly normal Speech and movement: Normal speech and movement present Affect: normal affect Attitude: cooperative Thought process: Normal thought process present and not confabulating Thought content: Normal thought content present Insight: Limited insight present (Psych) Judgement: Limited judgement present (Psych) Assessment & Plan Assessment & Plan (1) Gas bloat syndrome: Code(s): K92.89 - Other specified diseases of the digestive system Category: Medical (2) Diastasis recti: Code(s): M62.08 - Separation of muscle (nontraumatic), other site Category: Medical (3) Exocrine pancreatic insufficiency: Comment: Low pancreatic elastase Code(s): K86.81 - Exocrine pancreatic insufficiency Category: Medical (4) Abdominal bloating: Code(s): R14.0 - Abdominal distension (gaseous) Category: Medical (5) GERD (gastroesophageal reflux disease): Comment: . Small sliding hiatal hernia on barium swallow, he did not find pantoprazole terribly helpful but his main problem is not with heartburn but with bloating. Code(s): K21.9 - Gastro-esophageal reflux disease without esophagitis Category: Medical Qualifiers: Esophagitis presence: without esophagitis Qualified Code(s): K21.9 - Gastro-esophageal reflux disease without esophagitis Plan Patient has been lost to follow-up since 06/2022 but apparently is here today for evaluation of dysphagia Actually, he denies dysphagia. He says that he developed a cough that would worsen whenever he ate or drank anything and initially he was treated with around a Zithromax that did not know good. After he was put back on omeprazole (she really dislikes taking medications even though it is known that he has chronic GERD) the cough finally resolved. After resolved he stopped the medication to ?see what happens? and so far has not come back but I feel that in time it likely will unless he can manage significant weight loss. I spent quite a bit of time educating him why weight gain makes GERD harder to control which included educating him about his false hernia or rectus abdominis and why this happens because sat tends to be deposited between the muscular layers. 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 At time the thing that is bothering him the most is a feeling of gassiness and bloating. We would discuss this when I last saw him over a year ago and he did try [id number] Gas-X without any relief. I then educate him that there are many factors thickened cause this including possible exocrine pancreatic insufficiency, SIBO, or gas trapping from other factors including obesity. Will also get an ultrasound to make sure that he is not having gallbladder problems contributing to his GERD and his bloating. In the end he opts 1st to treat for potential SIBO and will do a round of Flagyl and then evaluate his response. We could go on to consider Creon depending on his response. However, review of his records shows that he did have a low pancreatic a last taste in the past so it is likely he has exocrine pancreatic insufficiency. She also has a sliding hiatal hernia which could explain why his cough comes and goe s as his GERD worsens or improves depending on the position of the hernia. In case that neither of these resolves it we could look at some less common problems such as food allergies but this seems unlikely given the fact that he moves his bowels well daily and they are formed without diarrhea. ROV 4 lweeks. Orders: Orders US abdomen complete Today K92.89 - Other specified diseases of the digestive system, M62.08 - Separation of muscle (nontraumatic), other site Medications: New metronidazole 500 mg PO TID 30 tabs 0RF 10 days Coding Level of Care Code Est Pt Level 4 (61453) Diagnoses Gas bloat syndrome K92.89 Diastasis recti M62.08 Exocrine pancreatic insufficiency K86.81 Abdominal bloating R14.0 Gastroesophageal reflux disease without esophagitis K21.9 Esophagitis presence: without esophagitis Time Spent (min) 40
[2024-02-03 14:38] VITALS: BP 119/86; PULSE 58; BMI 35.4
== END 2024-02-03 15:32 | disposition home or self-care (01) ==
PROVIDERS: PCP Internal Medicine; Referring Provider Internal Medicine; Visit Provider Nurse Practitioner
DX: K92.89 Other specified diseases of the digestive system (principal); M62.08 Separation of muscle (nontraumatic), other site; K86.81 Exocrine pancreatic insufficiency; R14.0 Abdominal distension (gaseous); K21.9 Gastro-esophageal reflux disease without esophagitis
CPT/HCPCS: 99214

== ENCOUNTER → 2024-02-03 14:12 | Outpatient (BNVA) | payer BC, SELFPAY | PROVIDERS: PCP Internal Medicine; Visit Provider Nurse Practitioner ==

== ENCOUNTER 2024-03-03 08:24 | Outpatient (REF) | payer BC, SELFPAY | END 2024-03-03 08:25 | disposition home or self-care (01) | LOC: HO.US 08:24 | PROVIDERS: PCP Internal Medicine; Visit Provider Nurse Practitioner | DX: K92.89 Other specified diseases of the digestive system (principal); M62.08 Separation of muscle (nontraumatic), other site | CPT/HCPCS: 76700 ==

== ENCOUNTER 2024-03-03 15:00 | Outpatient (AMB) | payer BC, SELFPAY ==
[2024-03-03 15:20] VITALS: BP 111/74; PULSE 62; BMI 35.4
--- NOTE | 2024-03-03 15:20 | MHC.OFFVIS ---
Vital Signs 03/03/24 15:20 Height 5 ft 10 in Weight 246 lb 14.684 oz BMI 35.4 BP 111/74 Blood Pressure Location Rt brachial Position Sitting Pulse 62 Intake Visit Reasons: 4 week follow up Intake Note: Patient in office today in 4 weeks follow up of dry cough. CC: Patient reports doing well and denies having any new GI symptoms. Patient completed abx course. Autism Tutor Required: No Accompanied by: Self / Same As Patient Allergies codeine [CODEINE] Allergy (Severe, Verified 02/03/24 14:47) HIVES ibuprofen [From MOTRIN] Allergy (Severe, Verified 02/03/24 14:47) HIVES HPI HPI 4 week follow up: Details: Assessment & Plan (1) Gas bloat syndrome: Code(s): K92.89 - Other specified diseases of the digestive system Category: Medical (2) Diastasis recti: Code(s): M62.08 - Separation of muscle (nontraumatic), other site Category: Medical (3) Exocrine pancreatic insufficiency: Comment: Low pancreatic elastase Code(s): K86.81 - Exocrine pancreatic insufficiency Category: Medical (4) Abdominal bloating: Code(s): R14.0 - Abdominal distension (gaseous) Category: Medical (5) GERD (gastroesophageal reflux disease): Comment: . Small sliding hiatal hernia on barium swallow, he did not find pantoprazole terribly helpful but his main problem is not with heartburn but with bloating. Code(s): K21.9 - Gastro-esophageal reflux disease without esophagitis Category: Medical Qualifiers: Esophagitis presence: without esophagitis Qualified Code(s): K21.9 - Gastro-esophageal reflux disease without esophagitis Plan Patient has been lost to follow-up since 06/2022 but apparently is here today for evaluation of dysphagia Actually, he denies dysphagia. He says that he developed a cough that would worsen whenever he ate or drank anything and initially he was treated with around a Zithromax that did not know good. After he was put back on omeprazole (she really dislikes taking medications even though it is known that he has chronic GERD) the cough finally resolved. After resolved he stopped the medication to ?see what happens? and so far has not come back but I feel that in time it likely will unless he can manage significant weight loss. I spent quite a bit of time educating him why weight gain makes GERD harder to control which included educating him about his false hernia or rectus abdominis and why this happens because sat tends to be deposited between the muscular layers. 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 At time the thing that is bothering him the most is a feeling of gassiness and bloating. We would discuss this when I last saw him over a year ago and he did try [id number] Gas-X without any relief. I then educate him that there are many factors thickened cause this including possible exocrine pancreatic insufficiency, SIBO, or gas trapping from other factors including obesity. Will also get an ultrasound to make sure that he is not having gallbladder problems contributing to his GERD and his bloating. In the end he opts 1st to treat for potential SIBO and will do a round of Flagyl and then evaluate his response. We could go on to consider Creon depending on his response. However, review of his records shows that he did have a low pancreatic a last taste in the past so it is likely he has exocrine pancreatic insufficiency. She also has a sliding hiatal hernia which could explain why his cough comes and goes as his GERD worsens or improves depending on the position of the hernia. In case that neither of these resolves it we could look at some less common problems such as food allergies but this seems unlikely given the fact that he moves his bowels well daily and they are formed without diarrhea. ROV 4 lweeks. Orders: Orders US abdomen complete Today K92.89 - Other specified diseases of the digestive system, M62.08 - Separation of muscle (nontraumatic), other site Medications: New metronidazole 500 mg PO TID 30 tabs 0RF 10 days US ABD Not yet read TODAYS VISIT He had some decrease in the bloating with the flagyl. We will re treat with augmentin and he will add a probiotic. Despite having a low pancreatic elastase he did not feel he had any improvement on Creon. I am doing the Augmentin because it is the holiday season and it is more difficult to avoid alcohol so I think this is a safer option for now. Fortunately the cough that was bothering him has resolved. ROV 8 weeks. [facility] Medical History (Updated 03/03/24 @ 16:04 by ARLET Chapin) Pre-op examination Abdominal bloating Gas bloat syndrome Neck pain Colon cancer screening GERD without esophagitis Tightness of neck Cough Recurrent nonproductive cough Neck complaint Annual physical exam Ventral hernia Diastasis recti Vitamin D deficiency Persistent atrial fibrillation Obesity (BMI 30-39.9) Carpal tunnel syndrome Osteoarthritis of knees, bilateral Obstructive sleep apnea Pure hypercholesterolemia Impaired fasting glucose Surgical History Hx of colonoscopy History of surgery Family History Father CVD (cardiovascular disease) Cancer Mother Medical history unknown Social History Housing: House Alcohol intake: current Alcohol intake frequency: holidays/special occasions only Patient Tobacco Use Status: Never used Tobacco e-Cigarette/Vaping Use: Never Used Second Hand Smoke Exposure: Yes service: No Current occupational status: employed 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 Cognitive needs: No Hearing needs: No Vision needs: No Review of Systems Const Denies fatigue, Denies fever(s), Denies night sweats, Denies poor appetite and Denies weight loss ENT Reports Normal hearing present, Denies dental pain, Denies dysphagia, Denies hearing loss, Denies mouth pain, Denies odynophagia, Denies throat swelling, Denies tongue swelling and Reports other (Dentition adequate) Card Reports no additional complaints Resp Reports no additional complaints GI Details: Denies abdominal pain, Denies melena, Reports bloating, Denies hematochezia, Denies constipation, Denies GI cramping, Denies dysphagia, Reports excessive flatus, Denies early satiety, Reports heartburn, Denies diarrhea, Denies nausea, Denies odynophagia, Denies vomiting and Denies hematemesis Skin/Breast Denies pruritus, Denies lesions, Denies rash and Denies jaundice Neuro Reports Normal hearing present and Denies Abnormal speech present Endo Denies fatigue Aller/Immun Denies throat swelling and Denies tongue swelling Physical Exam Vital Signs: Last Vital Signs Pulse 62 03/03/24 15:20 BP 111/74 03/03/24 15:20 BMI result Body Mass Index 35.4 Const General: cooperative, no acute distress, well developed and well groomed Nutritional Appearance: well nourished and obese Orientation/consciousness: oriented to person, oriented to place and oriented to time Limitations: No language barrier HEENT Head: Yes normocephalic and Yes atraumatic Eyes General: appearance normal, both eyes and all related structures Pupils: Equal, round and reactive pupils present Neck Neck: Yes normal visual inspection and Yes no lymphadenopathy Thyroid: Thyroid normal Resp Effort & Inspection: normal respiratory effort and able to speak in complete sentences Auscultation: clear to auscultation bilaterally Cardio Rate: regular rate Rhythm: regular rhythm Heart sounds: Normal, physiologic split S2 sound present Peripheral pulses: radial pulses present and posterior tibial pulses present GI Inspection: No distended, No Abdominal panniculus present and Yes obesity Palpation (GI): Soft to palpation, nontender, no guarding, not rigid and No hepatosplenomegaly present Percussion: Yes normal to percussion Auscultation: normal bowel sounds Rectal Exam - Male: Yes deferred Skin General skin exam: no rashes or lesions noted, turgor normal, skin not dry, no jaundice, No spider nevi and no striae Rashes: no rashes Nails: normal Neuro General: oriented to person, oriented to place and oriented to time Cranial nerves: Yes Equal, round and reactive pupils present and Yes Normal hearing present Speech: No Abnormal speech present Extrem General: Yes normal to inspection, No clubbing, No cyanosis and No edema Psych Appearance: grossly normal and well kempt Mental Status: mental status grossly normal Speech and movement: Normal speech and movement present Affect: normal affect Attitude: cooperative Thought process: Normal thought process present and not confabulating Thought content: Normal thought content present Insight: Limited insight present (Psych) Judgement: Limited judgement present (Psych) Assessment & Plan Assessment & Plan (1) Small intestinal bacterial overgrowth (SIBO), hydrogen subtype: Code(s): K63.8211 - Small intestinal bacterial overgrowth, hydrogen-subtype Category: Medical (2) Exocrine pancreatic insufficiency: Comment: Low pancreatic elastase Code(s): K86.81 - Exocrine pancreatic insufficiency Category: Medical (3) GERD (gastroesophageal reflux disease): Code(s): K21.9 - Gastro-esophageal reflux disease without esophagitis Category: Medical Qualifiers: Esophagitis presence: without esophagitis Qualified Code(s): K21.9 - Gastro-esophageal reflux disease without esophagitis Plan He had some decrease in the bloating with the flagyl. We will re treat with augmentin and he will add a probiotic. Despite having a low pancreatic elastase he did not feel he had any improvement on Creon. I am doing the Augmentin because it is the holiday season and it is more difficult to avoid alcohol so I think this is a safer option for now. Fortunately the cough that was bothering him has resolved. He continues on his omeprazole 20 mg once a day with good control of his GERD. ROV 8 weeks. Medications: New amoxicillin-pot clavulanate 875-125 mg 1 tab PO BID 20 tabs 0RF 10 days K63.8211 - Small intestinal bacterial overgrowth, hydrogen-subtype Coding Level of Care Code Est Pt Level 3 (42208) Diagnoses Small intestinal bacterial overgrowth (SIBO), hydrogen subtype K63.8211 Exocrine pancreatic insufficiency K86.81 Gastroesophageal reflux disease without esophagitis K21.9 Esophagitis presence: without esophagitis
== END 2024-03-03 16:10 | disposition home or self-care (01) ==
PROVIDERS: PCP Internal Medicine; Visit Provider Nurse Practitioner
DX: K63.8211 Small intestinal bacterial overgrowth, hydrogen-subtype (principal); K86.81 Exocrine pancreatic insufficiency; K21.9 Gastro-esophageal reflux disease without esophagitis
CPT/HCPCS: 99213

== ENCOUNTER 2024-04-24 07:42 | Outpatient (REF) | payer BC, SELFPAY ==
[2024-04-24 07:53] LABS: MANUAL DIFF FLAG NO
[2024-04-24 08:09] LABS: Basophils Percent Auto 0.4 % (0-2); Eosinophils Absolute Auto 0.1 X10*3/uL (0.0-0.4); Eosinophils Percent Auto 2.5 % (0-4); Hematocrit 41.3 % (42.0-52.0); Hemoglobin 14.6 g/dl (14.0-18.0); Imm Gran Abs Auto 0.01 X10*3/uL (0.00-0.03); Imm Gran Pct Auto 0.2 % (0.0-0.4); Lymphocytes Absolute Auto 1.7 X10*3/uL (1.2-4.9); Lymphocytes Percent Auto 34.4 % (20-40); Mean Corpuscular HGB Conc 35.4 g/dl (31.0-36.0); Mean Corpuscular Hemoglobin 32.4 pg (27.0-33.0); Mean Corpuscular Volume 91.6 fL (80.0-98.0); Mean Platelet Volume 9.9 fL (9.4-12.4); Monocytes Absolute Auto 0.5 X10*3/uL (0.1-1.2); Monocytes Percent Auto 9.3 % (2-11); Neutrophils Absolute Auto 2.6 x10*3/uL (2.0-8.3); Neutrophils Percent Auto 53.2 % (45-73); Platelet Count 220 X10*3/uL (160-400); Red Blood Count 4.51 X10*6/uL (4.60-5.80); Red Cell Distribution Width 11.7 % (11.0-16.0); White Blood Count 4.8 X10*3/uL (4.8-10.8)
[2024-04-24 08:44] LABS: Alanine Aminotransferase 42 U/L (0-40); Alkaline Phosphatase 60 U/L (39-117); Anion Gap 15 (12-20); Aspartate Amino Transferase 32 U/L (5-37); Bilirubin Total 0.5 mg/dL (0.0-1.0); Blood Urea Nitrogen 15 mg/dL (9-16); Calcium 9.1 mg/dL (8.4-10.2); Carbon Dioxide 21 mmol/L (22-29); Chloride 107 mmol/L (96-108); Cholesterol 137 mg/dL (<200); Estimated Glomerular Filt Rate > 60; Glucose Fasting 115 mg/dL (60-99); HDL Cholesterol 33 mg/dL (>40); LDL Cholesterol Calculated 87 mg/dL (<100); Potassium 4.2 mmol/L (3.3-5.1); Sodium 139 mmol/L (135-145); Total Protein 7.9 g/dL (6.5-8.0); Triglycerides 88 mg/dL (<150)
[2024-04-24 08:49] LABS: Appearance Urine Hazy; Color Urine Yellow; Glucose Urine UA 100 mg/dL (Negative); Leukocyte Esterase Urine Negative (Negative); Nitrite Urine Negative (Negative); PH 5.5 (5.0-9.0); Specific Gravity - Urine >= 1.030 (1.005-1.025); UMIC TRIGGER UACC YES; Urine Blood Negative (Negative); Urine Ketones Trace mg/dL (Negative); Urine Protein 100 (2+) mg/dL (Neg-Trace)
[2024-04-24 09:00] LABS: Estimated Average Glucose 123 mg/dL; Hemoglobin A1c % 5.9 % (<6.0); Total Hemoglobin (HGBA1C) 3869.0943 umol/L
[2024-04-24 09:03] LABS: TSH reflex Free T4 2.36 uIU/mL (0.32-4.0)
[2024-04-24 09:07] LABS: Bacteria Urine Trace (None Seen); Calcium Oxalate Crystals Urine Present; RBC Urine 0-2 /HPF (0-2); Squamous Epithelial Cell Urine 0-2 /HPF (0-2); WBC Urine 0-5 /HPF (0-5)
[2024-04-24 09:28] LABS: Creatinine Urine 713.16 mg/dL
== END 2024-04-24 07:43 | disposition home or self-care (01) ==
LOC: HO.LAB 07:42
PROVIDERS: PCP Internal Medicine; Visit Provider Internal Medicine
DX: D64.9 Anemia, unspecified (principal); E78.00 Pure hypercholesterolemia, unspecified; E11.9 Type 2 diabetes mellitus without complications
CPT/HCPCS: 36415; 80053; 80061; 81001; 82043; 82570; 83036; 84443; 85025

== ENCOUNTER 2024-04-26 16:08 | Outpatient (AMB) | payer BC, SELFPAY ==
[2024-04-26 16:11] VITALS: BP 128/84; PULSE 73; O2SAT 97; BMI 35.6
--- NOTE | 2024-04-26 16:11 | MHC.PC.OV ---
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 Required: No Accompanied by: Self / Same As Patient Allergies codeine [CODEINE] Allergy (Severe, Verified 04/26/24 16:39) HIVES ibuprofen [From MOTRIN] Allergy (Severe, Verified 04/26/24 16:39) HIVES Medication List - Last Reconciled 04/26/24 by Henok Cornejo MD amoxicillin-pot clavulanate 875-125 mg 1 tab PO BID 10 days atorvastatin 10 mg PO DAILY cholecalciferol (vitamin D3) 50 mcg PO DAILY 90 days diltiazem HCl CD 240 mg PO DAILY omeprazole 20 mg PO DAILY 90 days Tobacco use date assessed: 04/26/24 Dental Screening Dental Screen Date: 04/26/24 Did you have a dental visit in the last 12 months?: No Did you have a dental problem in the last 6 months where you did not have access to dental care?: No Was dental information given to patient?: No HPI 4 month f/u HPI Details Patient comes in today for his follow-up visit States that he feels okay He denies any headaches or dizziness Denies any chest pains, no shortness of breath No nausea/vomiting, no abdominal pain No change in bowel habits noted He had his follow-up labs done a couple of days ago - to discuss his results [facility] Medical History (Updated 04/26/24 @ 16:41 by Henok Cornejo MD) Abdominal bloating Gas bloat syndrome Neck pain GERD without esophagitis Ventral hernia Diastasis recti Vitamin D deficiency Persistent atrial fibrillation Obesity (BMI 30-39.9) Carpal tunnel syndrome Osteoarthritis of knees, bilateral Obstructive sleep apnea Pure hypercholesterolemia Impaired fasting glucose Surgical History Hx of colonoscopy History of surgery Family History Father CVD (cardiovascular disease) Cancer Mother Medical history unknown Social History Housing: House Alcohol intake: current Alcohol intake frequency: holidays/special occasions only Patient Tobacco Use Status: Never used Tobacco e-Cigarette/Vaping Use: Never Used Second Hand Smoke Exposure: Yes service: No Current occupational status: employed 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 Cognitive needs: No Hearing needs: No Vision needs: No Questionnaire PHQ-9 Over the last 2 weeks, how often have you been bothered by any of the following problems? 1. Little interest or pleasure in doing things: not at all 2. Feeling down, depressed, or hopeless: not at all 3. Trouble falling or staying asleep, or sleeping too much: not at all 4. Feeling tired or having little energy: not at all 5. Poor appetite or overeating: not at all 6. Feeling bad about yourself - or that you are a failure or have let yourself or your family down: not at all 7. Trouble concentrating on things, such as reading the newspaper or watching television: not at all 8. Moving or speaking so slowly that other people could have noticed. Or the opposite - being so fidgety or restless that you have been moving around a lot more than usual: not at all 9. Thoughts that you would be better off or of hurting yourself in some way: not at all Total score: 0 Depression Screening Interpretation: Negative Depression Screening Done: Yes 69069 - PHQ-9 Billing: Yes Source: Developed by Drs. Carrington Alvarez, Sandy Chambers, William Sanders and colleagues, with an educational carson from [employer]. Thrive Questionnaire Date Thrive assessed: 04/26/24 I am a: Patient What is your living situation today?: I have a steady place to live Within the past 12 months, did the food you bought not last and you didn't have the money to get more?: Never true Within the past 12 months, did you worry whether your food would run out before you got money to buy more?: Never true Do you have trouble paying for medicines?: No Do you have trouble getting transportation to medical appointments?: No Do you have trouble paying your heating and electricity bill?: No Do you have trouble taking care of your child, family member or friend?: No Do you have trouble with day-to-day activities such as bathing, preparing meals, shopping, managing finances, etc.?: No Are you currently unemployed and looking for a job?: No Are you interested in more education?: No Please select the resources that you would like help with: None Currently or been in a relationship where the following occur: No concerns reported THRIVE Score: 0 AUDIT C Alcohol Use Questionnaire (AUDIT-C) 1. How often do you have a drink containing alcohol?: Monthly or less 2. How many drinks containing alcohol do you have on a typical day when you are drinking?: 1 or 2 3. How often do you have six or more drinks on one occasion?: Never Total Score: 1 Score Reviewed/Action Taken: Yes NONA-7 AMB Questionnaire NONA-7 Date NONA - 7 assessed: 04/26/24 Feeling nervous, anxious, or on edge: 0 = Not at all Not being able to stop or control worryin = Not at all Worrying too much about different things: 0 = Not at all Trouble relaxin = Not at all Being so restless that it is hard to sit still: 0 = Not at all Becoming easily annoyed or irritable: 0 = Not at all Feeling afraid as if something awful might happen: 0 = Not at all Total NONA-7 score (0-4 normal; 5-9 mild; 10-14 moderate; 15-21 severe): 0 Source: Developed by Drs. Carrington Alvarez, Sandy Chambers, William Sanders and colleagues, with an educational carson from [employer]. NONA-7 Assessment Billing NONA-7 Assessment Tool: NONA-7 Assessment 24517 Review of Systems Const Denies chills, Denies fatigue, Denies fever(s) and Denies headache(s) ENT Denies dysphagia, Denies dizziness, Denies otalgia, Denies headache(s), Denies neck pain, Denies odynophagia and Denies sore throat Card Denies chest pain, Denies rapid heart rate, Denies irregular heart rhythm, Denies palpitations and Denies dyspnea Resp Denies chest congestion, Denies cough, Denies dyspnea and Denies wheezing GI Denies abdominal pain, Denies constipation, Denies dysphagia, Denies heartburn, Denies diarrhea, Denies nausea, Denies odynophagia and Denies vomiting Denies difficulty urinating, Denies dysuria and Denies urinary frequency Musc Denies back pain, Denies arthralgias and Denies neck pain Skin/Breast Denies rash Neuro Denies dizziness, Denies headache(s) and Denies paresthesias Endo Denies fatigue and Denies palpitations Aller/Immun Denies wheezing Physical exam (Primary Care) Vital Signs: Last Vital Signs Pulse 73 04/26/24 16:11 BP 128/84 04/26/24 16:11 Pulse Ox 97 04/26/24 16:11 Oxygen Delivery Method Room Air 04/26/24 16:11 BMI result Body Mass Index 35.6 Tobacco/Smoking Status: Tobacco use Status Tobacco use date assessed 04/26/24 04/26/24 16:19 Patient Tobacco Use Status Never used Tobacco 04/26/24 16:19 e-Cigarette/Vaping Use Never Used 04/26/24 16:19 PHQ-9: PHQ-9 Score PHQ-9: Total score 0 04/26/24 16:43 Depression Screening Interpretation: Negative Thrive Assessment: Date of Thrive Assessment Date Thrive assessed 04/26/24 04/26/24 16:19 Currently or been in a relationship where the following occur: No concerns reported Const General: no acute distress and alert HENMT Ears: TM's normal bilaterally and EAC's normal Throat: Yes posterior oropharynx normal and Yes tonsils normal (no TP congestion) Neck Neck: Yes supple and No lymphadenopathy Thyroid: Thyroid normal Resp Auscultation: clear to auscultation bilaterally, no rales and no wheezes Cardio Rate: regular rate Rhythm: abnormal rhythm irregularly irregular Heart sounds: no murmurs GI Other: (+) recurrent visible bulge along the midline of the abdomen, mostly when the abdominal muscles are contracted Palpation (GI): Soft to palpation and nontender Auscultation: normal bowel sounds General: Yes no CVA tenderness Back/Spine/Pelvis Back: no CVA tenderness Thoracic/Lumbar Spine: No lumbar spinal tenderness Skin Rashes: no rashes Extrem General: Yes no clubbing, cyanosis or edema Results Reviewed Results Reviewed: Laboratory Tests 04/24/24 04/24/24 07:52 Unknown WBC 4.8 Hgb 14.6 Hct 41.3 L Plt Count 220 Sodium 139 Potassium 4.2 Creatinine 0.98 Estimated GFR > 60 Fasting Glucose 115 H Hemoglobin A1c % 5.9 Calcium 9.1 AST 32 ALT 42 H Triglycerides 88 Cholesterol 137 LDL Cholesterol, Calc 87 HDL Cholesterol 33 L TSH 2.36 Ur Specific [place] >= 1.030 H Urine Protein 100 (2+) H Urine Glucose (UA) 100 H Urine Blood Negative Urine Nitrite Negative Ur Leukocyte Esterase Negative Microalb/Creat Ratio 33.0 H Coding Level of Care Code Est Pt Level 4 (91196) Diagnoses Persistent atrial fibrillation I48.19 Pure hypercholesterolemia E78.00 Gastroesophageal reflux disease without esophagitis K21.9 Esophagitis presence: without esophagitis Impaired fasting glucose R73.01 Obstructive sleep apnea G47.33 Diastasis recti M62.08 Primary osteoarthritis of both knees M17.0 Osteoarthritis type: primary Bilateral carpal tunnel syndrome G56.03 Laterality: bilateral Vitamin D deficiency E55.9 Obesity (BMI 30-39.9) E66.9 Additional Codes NONA-7 Assessment Billing - NONA-7 Assessment Tool: NONA-7 Assessment 95180 ([id number]) PHQ-9 - 58044 - PHQ-9 Billing: Yes ([id number]) Assessment & Plan Assessment & Plan (1) Persistent atrial fibrillation: Comment: Patient has failed rhythm control in the past with cardioversion and antiarrhythmic drug therapy Code(s): I48.19 - Other persistent atrial fibrillation Category: Medical Plan: Patient remains in atrial fibrillation but is rate-controlled Continue Diltiazem 240 mg QD Echocardiogram done back in June 2020 to assess cardiac function and chamber size came back normal except for mild biatrial enlargement Repeat echocardiogram done in May 2022 came out normal as well - left ventricular systolic function is normal and?the calculated ejection fraction is 61% by biplane method. No obvious valvular pathology seen on this study He has reportedly been advised by cardiology that he may need to pursue rhythm control again in the future Follow up with cardiology as scheduled (2) Pure hypercholesterolemia: Code(s): E78.00 - Pure hypercholesterolemia, unspecified Category: Medical Plan: Results of his labs done a few days ago reviewed and discussed with patient Reinforced low cholesterol diet Continue Atorvastatin 10 mg QD Will recheck his labs and fasting lipids again in 4 months for follow up (3) GERD (gastroesophageal reflux disease): Code(s): K21.9 - Gastro-esophageal reflux disease without esophagitis Category: Medical Qualifiers: Esophagitis presence: without esophagitis Qualified Code(s): K21.9 - Gastro-esophageal reflux disease without esophagitis Plan: Dietary restrictions reinforced Have reminded patient that the barium swallow that he did back in December 2021 revealed (+) small hiatal hernia and gastroesophageal reflux Continue Omeprazole 20 mg QD (4) Impaired fasting glucose: Code(s): R73.01 - Impaired fasting glucose Category: Medical Plan: His HgbA1c was again unchanged from previous at 5.9% on his labs done a few days ago Reinforced low calorie diet/exercise as tolerated Will continue to monitor his FBS and HgbA1c regularly (5) Obstructive sleep apnea: Code(s): G47.33 - Obstructive sleep apnea (adult) (pediatric) Category: Medical Plan: Sleep study done back in April 2016 showed moderately severe YULISSA Patient has not been able to tolerate any CPAP device thus far; feels that he has been doing okay lately and that his symptoms have improved a lot since he changed his bed a couple of years ago and is now sleeping in more of a semi-reclining position at night, which helps to correct some of his breathing issues when he is sleeping Have recommended that he should get this rechecked again, either with a repeat sleep study OR a formal referral to sleep medicine for further evaluation and management - patient states that he will call for referral when he is ready to get this checked into again (6) Diastasis recti: Code(s): M62.08 - Separation of muscle (nontraumatic), other site Category: Medical Plan: Have advised patient that what he currently has is NOT A HERNIA but is a result of the separation of the rectus abdominis muscles Have advised patient that surgery is rarely performed to fix diastasis recti and that we usually recommend physical therapy or at-home exercises to help heal diastasis and reserve surgical methods only as a last resort Have also advised patient that whatever he can do to help reduce his abdominal size/girth will definitely help (7) Osteoarthritis of knees, bilateral: Code(s): M17.0 - Bilateral primary osteoarthritis of knee Category: Medical Qualifiers: Osteoarthritis type: primary Qualified Code(s): M17.0 - Bilateral primary osteoarthritis of knee Plan: Continue OTC Tylenol or Advil PRN for pain Follow up with orthopedics as scheduled (8) Carpal tunnel syndrome: Code(s): G56.00 - Carpal tunnel syndrome, unspecified upper limb Category: Medical Qualifiers: Laterality: bilateral Qualified Code(s): G56.03 - Carpal tunnel syndrome, bilateral upper limbs Plan: He is encouraged again to continue using his wrist braces as needed to help minimize his wrist symptoms To consider referral to rheumatology (used to see Dr. Overton at [facility] several years ago) or orthopedics if his symptoms progress or worsen (9) Vitamin D deficiency: Code(s): E55.9 - Vitamin D deficiency, unspecified Category: Medical Plan: Continue Vitamin D3 2000 units QD (10) Obesity (BMI 30-39.9): Code(s): E66.9 - Obesity, unspecified Category: Medical Plan: Reinforced diet/exercise as tolerated/lose weight Plan Follow up in 4 months Orders: Orders Comprehensive [place]. Panel Fast 4 Months E78.00 - Pure hypercholesterolemia, unspecified Lipid Panel 4 Months E78.00 - Pure hypercholesterolemia, unspecified Hemoglobin A1c 4 Months E11.9 - Type 2 diabetes mellitus without complications TSH reflex Free T4 4 Months E78.00 - Pure hypercholesterolemia, unspecified UA CC w/rflx Micro + Cult 4 Months R30.0 - Dysuria Microalbumin, Random (w Creat) 4 Months E11.9 - Type 2 diabetes mellitus without complications Vitamin B12 and Folate 4 Months E53.8 - Deficiency of other specified B group vitamins Complete Blood Count Auto Diff 4 Months D64.9 - Anemia, unspecified Vitamin D 25-OH Total 4 Months E55.9 - Vitamin D deficiency, unspecified
== END 2024-04-26 16:52 | disposition home or self-care (01) ==
PROVIDERS: PCP Internal Medicine; Visit Provider Internal Medicine
DX: I48.19 Other persistent atrial fibrillation (principal); E78.00 Pure hypercholesterolemia, unspecified; E66.9 Obesity, unspecified; Z68.35 Body mass index [BMI] 35.0-35.9, adult; K21.9 Gastro-esophageal reflux disease without esophagitis; R73.01 Impaired fasting glucose; G47.33 Obstructive sleep apnea (adult) (pediatric); M62.08 Separation of muscle (nontraumatic), other site; M17.0 Bilateral primary osteoarthritis of knee; G56.03 Carpal tunnel syndrome, bilateral upper limbs; E55.9 Vitamin D deficiency, unspecified

== ENCOUNTER → 2024-04-26 16:08 | Outpatient (BNVA) | payer BC, SELFPAY | PROVIDERS: PCP Internal Medicine; Visit Provider Internal Medicine | DX: I48.19 Other persistent atrial fibrillation (principal); E78.00 Pure hypercholesterolemia, unspecified; K21.9 Gastro-esophageal reflux disease without esophagitis; R73.01 Impaired fasting glucose; G47.33 Obstructive sleep apnea (adult) (pediatric); M62.08 Separation of muscle (nontraumatic), other site; M17.0 Bilateral primary osteoarthritis of knee; G56.03 Carpal tunnel syndrome, bilateral upper limbs; E55.9 Vitamin D deficiency, unspecified; E66.9 Obesity, unspecified; Z68.35 Body mass index [BMI] 35.0-35.9, adult; Z79.899 Other long term (current) drug therapy | CPT/HCPCS: 96127 ==

== ENCOUNTER → 2024-07-07 09:22 | Outpatient (REF) | payer BC, SELFPAY ==
--- NOTE | 2024-07-07 09:24 | CA_ITS ---
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 Normal LV ejection fraction 55-60% 2. Moderate biatrial enlargement 3. Moderately enlarged RV with low normal RV systolic function 4. Normal cardiac valvular Dopplers 5. No gross pericardial effusion Findings Procedure Information Contrast agent, definity, is being given per protocol without apparent complications. Left Ventricle Normal left ventricular size, thickness, and systolic function. The visually estimated ejection fraction is between 55-60%. Diastolic function is indeterminate on the basis of available data. Right Ventricle Moderately increased right ventricular cavity size. There is low normal right ventricular systolic function. Atria Moderate biatrial enlargement. Interatrial shunt cannot be excluded. Aortic Valve The aortic valve structure and function is likely normal. There is no aortic valve stenosis. There is no aortic valve regurgitation. Mitral Valve There is mild anterior and posterior mitral leaflet thickening. There is trace mitral valve regurgitation. There is no mitral valve stenosis. Pulmonic Valve The pulmonic valve is likely normal. There is trace pulmonic valve regurgitation. Tricuspid Valve Likely normal tricuspid valve structure and function. Tricuspid regurgitation envelope is inadequate for calculation of right ventricular systolic pressure. Normal right atrial pressure. Great Vessels The pulmonary artery was not well visualized. Venous The inferior vena cava is normal in size and collapses greater than 50% with inspiration. Pericardium/Pleural There is no evidence of pericardial effusion. Prior Study Comparison No significant change compared to prior study dated: 06/01/2022. Measurements 2D Linear Measurements IVSd: 1.03 0.6-0.9/0.6-1.0 cm LVIDd: 4.67 3.9-5.3/4.2-5.9 cm LVIDd Index: 2.06 2.4-3.2/2.2-3.1 cm/m2 LVIDs: 3.32 2.0-3.6 cm LVPWd: 0.96 0.7-1.1 cm LA Diam: 4.80 2.7-3.8/3.0-4.0 cm LAIDs Index: 2.11 1.5-2.3 cm/m2 LV Mass: 201.72 67-162/88-224 g LV Mass Index: 88.86 43-95/49-115 g/m2 LVOT Diam: 2.30 3.0+(-)1.3 cm 2D Systolic Function EF 2C: 59.50 >55% Mitral Valve MV Pk E: 0.87 MV Decel Time: 166.00 E'Lateral: 13.50 E'Medial: 8.92 E/E' Med: 9.70 E/E' Lat: 6.40 PHT: 49.00 MVA PHT: 4.49 Decel [place]: 5.44 Aortic Valve AoV Pk Willis: 0.83 AoV Pk Grad: 3.00 LVOT LVOT Pk Willis: 0.55 LVOT Mn Willis: 0.38 LVOT VTI: 0.12 LVOT Pk Grad: 1.00 LVOT Mn Grad: 1.00 LVOT Diam: 2.30 LVOT Area: 4.15 Diastolic Function MV Pk E: 0.87 E'Medial: 8.92 E/E' Med: 9.70 E' Laterial: 13.50 E/E' Lat: 6.40 Right Ventricle TAPSE (mm): 16.80 TVS' Willis: 9.27 Tricuspid Valve RA Press: 3.00 Great Vessels Aorta Sinus of Valsalva: 4.04 2.0-3.5 cm Ao Asc: 3.60 2.1-3.4 cm Updated in Other Vendor System with Status of Final Armando Barton MD electronically signed on 07/07/2024 3:07:36 PM with status of Final
== END ==
LOC: HO.CARD 09:22
PROVIDERS: PCP Internal Medicine; Visit Provider Internal Medicine Cardiovascular Disease
DX: I48.19 Other persistent atrial fibrillation (principal)
CPT/HCPCS: 93306; Q9957

== ENCOUNTER → 2024-07-07 09:24 | Outpatient (BNV) | payer BC, SELFPAY | PROVIDERS: PCP Internal Medicine; Visit Provider Internal Medicine Cardiovascular Disease | DX: I34.0 Nonrheumatic mitral (valve) insufficiency (principal); I37.1 Nonrheumatic pulmonary valve insufficiency; I36.1 Nonrheumatic tricuspid (valve) insufficiency; I51.7 Cardiomegaly | CPT/HCPCS: 93306 ==

== ENCOUNTER 2024-07-13 15:14 | Outpatient (REF) | payer BC, SELFPAY ==
[2024-07-14 03:50] LABS: HBS Num1 0.53 mIU/mL (0-7.99); HBc Num1 0.08 S/CO (0.00-0.79); HBsAGNum1 0.41 S/CO (0.00-0.99); HIV AB/AG Nonreactive (Nonreactive); HIV Num 1 0.22 S/CO (0.00-0.99); Hepatitis B Core Antibody Nonreactive (Nonreactive); Hepatitis B Surface Antigen Negative (Negative); ~HepC Num1 0.07 S/CO (0.00-0.79); ~Hepatitis B Surface Antibody NONREACTIVE (Nonreactive); ~Hepatitis C Antibody Nonreactive (Nonreactive)
[2024-07-14 10:23] LABS: Alpha Fetoprotein 3.1 ng/mL (<6.1)
[2024-07-17 06:33] LABS: Smooth Muscle Antibody <20 U (<20)
[2024-07-18 06:48] LABS: Mitochondrial Antibodies NEGATIVE (NEGATIVE)
[2024-07-18 08:02] LABS: ~Hepatitis A Antibody IgM Nonreactive (Nonreactive)
[2024-07-18 15:32] LABS: FIB-ALT 32 U/L (9-46); FIB-Alpha-2-Macroglobulin 124 mg/dL (106-279); FIB-Apolipoprotein A1 160 mg/dL (94-176); FIB-GGT 43 U/L (3-70); FIB-Haptoglobin 266 mg/dL (43-212); FIB-Total Bilirubin 0.6 mg/dL (0.2-1.2); Liver Fibrosis Stage F0; Nec Inflam Act Grade A0; Nec Inflam Act Score 0.12; Reference ID 5460046
[2024-07-19 11:33] LABS: Anti Nuclear Antibody Pattern Nuclear, Homogeneous; Anti Nuclear Antibody Screen POSITIVE (NEGATIVE)
== END 2024-07-13 15:15 | disposition home or self-care (01) ==
LOC: HO.LAB 15:14
PROVIDERS: PCP Internal Medicine; Visit Provider Nurse Practitioner
DX: R74.01 Elevation of levels of liver transaminase levels (principal)
CPT/HCPCS: 36415; 81596; 82105; 86015; 86038; 86039; 86381; 86704; 86706; 86709; 86803; 87340; 87389

== ENCOUNTER 2024-07-13 15:14 | Outpatient (AMB) | payer BC, SELFPAY ==
--- NOTE | 2024-07-13 15:16 | MHC.OFFVIS ---
Vital Signs 07/13/24 15:24 Height 5 ft 10 in Weight 252 lb BMI 36.2 BP 140/80 H Blood Pressure Location Rt brachial Position Sitting Pulse 72 Pulse Source Pulse Oximeter Pulse Oximetry (%) 96 Oxygen Delivery Method Room Air Intake Visit Reasons: follow up SIBO, GERD Intake Note: ESTABLISHED PATIENT for GERD mgmt. Hx of SIBO. Chief Complaint; C/O need to review US results per concern of possible umbilical hernia. Pt reports umbilical pain, swelling, chronic development over the last few months. Pt reports worsening sx with exertion. 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: No Accompanied by: Self / Same As Patient Allergies codeine [CODEINE] Allergy (Severe, Verified 07/13/24 15:17) HIVES ibuprofen [From MOTRIN] Allergy (Severe, Verified 07/13/24 15:17) HIVES HPI HPI follow up SIBO, GERD: Details: Assessment & Plan (1) Small intestinal bacterial overgrowth (SIBO), hydrogen subtype: Code(s): K63.8211 - Small intestinal bacterial overgrowth, hydrogen-subtype Category: Medical (2) Exocrine pancreatic insufficiency: Comment: Low pancreatic elastase Code(s): K86.81 - Exocrine pancreatic insufficiency Category: Medical (3) GERD (gastroesophageal reflux disease): Code(s): K21.9 - Gastro-esophageal reflux disease without esophagitis Category: Medical Qualifiers: Esophagitis presence: without esophagitis Qualified Code(s): K21.9 - Gastro-esophageal reflux disease without esophagitis Plan He had some decrease in the bloating with the flagyl. We will re treat with augmentin and he will add a probiotic. Despite having a low pancreatic elastase he did not feel he had any improvement on Creon. I am doing the Augmentin because it is the holiday season and it is more difficult to avoid alcohol so I think this is a safer option for now. Fortunately the cough that was bothering him has resolved. He continues on his omeprazole 20 mg once a day with good control of his GERD. ROV 8 weeks. Medications: New amoxicillin-pot clavulanate 875-125 mg 1 tab PO BID 20 tabs 0RF 10 days K63.8211 - Small intestinal bacterial overgrowth, hydrogen-subtype ULTRASOUND OF THE ABDOMEN 03/03/2024 FINDINGS: PANCREAS: Limited visualization of pancreatic tail and head. Imaged portion of pancreatic body is unremarkable. ABDOMINAL AORTA: Limited visualization of the abdominal aorta. Imaged portions of the abdominal aorta are within normal limits in caliber. INFERIOR VENA CAVA: Visualized portions are normal. LIVER: The liver is normal in size. The liver contour is normal. Diffusely heterogeneous hepatic echotexture with slightly increased echogenicity is characteristic of hepatocellular disease and correlation with clinical and laboratory exam recommended to determine further management. GALLBLADDER: No gallstones. No gallbladder wall thickening. COMMON BILE DUCT: Normal in caliber measuring 0.2 cm in diameter. RIGHT KIDNEY: No hydronephrosis. No renal calculi. Limited visualization. The kidney measures 11.4 cm in maximum dimension. LEFT KIDNEY: No hydronephrosis. No renal calculi. Limited visualization. The kidney measures 11.7 cm in maximum dimension. SPLEEN: The spleen measures 9.4 cm in maximum dimension. FREE FLUID: None. US/US abdomen complete IMPRESSION: Diffusely heterogeneous hepatic echotexture with slightly increased echogenicity is characteristic of hepatocellular disease and correlation with clinical and laboratory exam recommended to determine further management. TODAY'S VISIT He continues on his omeprazole 20 mg once a day with good control of his GERD. HIS CONCERN TODAY IS PAIN in his umbilicus especially if he does anything that involves using his stomach muscles. He also says it is ?popping out? and I do note this as he shows it to me on physical exam. There is no mention of this on the ultrasound that we performed for the liver and I think that they probably did not look specifically at this area. I will order a limited ultrasound to give him better insight. Because I know to see does have elevated liver tests and because there was fatty liver on the ultrasound we talked about slow steady weight loss. 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 However looking at his profile he has a BMI over 35 and comorbid sleep apnea and cardiac condition so he should be eligible for a GLP 1 type of medication like will go via or Mounjaro. I have advised him to speak with his primary care provider about this and if they are not comfortable trying to prescribe it he may want to look at the [facility] weight management as they do medication therapy that is not offered at our weight loss clinic. I am also going to work him up for transaminitis as he gets a mild bump in his ALT. This also would benefit from weight loss so this will add to the likelihood of getting him approved if he wants to try this kind of medication. Return office visit in 3 months [facility] Medical History Abdominal bloating Gas bloat syndrome Neck pain GERD without esophagitis Ventral hernia Diastasis recti Vitamin D deficiency Persistent atrial fibrillation Obesity (BMI 30-39.9) Carpal tunnel syndrome Osteoarthritis of knees, bilateral Obstructive sleep apnea Pure hypercholesterolemia Impaired fasting glucose Surgical History Hx of colonoscopy History of surgery Family History Father CVD (cardiovascular disease) Cancer Mother Medical history unknown Social History Housing: House Alcohol intake: current Alcohol intake frequency: holidays/special occasions only Patient Tobacco Use Status: Never used Tobacco e-Cigarette/Vaping Use: Never Used Second Hand Smoke Exposure: Yes service: No Current occupational status: employed 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 Cognitive needs: No Hearing needs: No Vision needs: No Review of Systems Const Denies fatigue, Denies fever(s), Denies night sweats, Denies poor appetite, Reports weight gain and Denies weight loss ENT Reports Normal hearing present, Denies dental pain, Denies dysphagia, Denies hearing loss, Denies mouth pain, Denies odynophagia, Denies throat swelling, Denies tongue swelling and Reports other (Dentition adequate) Card Reports no additional complaints Resp Reports no additional complaints GI Details: Denies abdominal pain, Denies melena, Denies bloating, Denies hematochezia, Denies constipation, Denies GI cramping, Denies dysphagia, Denies excessive flatus, Denies early satiety, Reports heartburn, Denies diarrhea, Denies nausea, Denies odynophagia, Denies vomiting and Denies hematemesis Skin/Breast Denies pruritus, Denies lesions, Denies rash and Denies jaundice Neuro Reports Normal hearing present and Denies Abnormal speech present Endo Denies fatigue Aller/Immun Denies throat swelling and Denies tongue swelling Physical Exam Vital Signs: Last Vital Signs Pulse 72 07/13/24 15:24 BP 140/80 H 07/13/24 15:24 Pulse Ox 96 07/13/24 15:24 Oxygen Delivery Method Room Air 07/13/24 15:24 BMI result Body Mass Index 36.2 Const General: cooperative, no acute distress, well developed and well groomed Nutritional Appearance: well nourished and obese Orientation/consciousness: oriented to person, oriented to place and oriented to time Limitations: No language barrier HEENT Head: Yes normocephalic and Yes atraumatic Eyes General: appearance normal, both eyes and all related structures Pupils: Equal, round and reactive pupils present Neck Neck: Yes normal visual inspection and Yes no lymphadenopathy Thyroid: Thyroid normal Resp Effort & Inspection: normal respiratory effort and able to speak in complete sentences Auscultation: clear to auscultation bilaterally Cardio Rate: regular rate Rhythm: regular rhythm Heart sounds: Normal, physiologic split S2 sound present Peripheral pulses: radial pulses present and posterior tibial pulses present GI Inspection: No distended, Yes Abdominal panniculus present, Yes obesity and Yes visible herniation (umbilicus) Palpation (GI): Soft to palpation, nontender, no guarding, not rigid and No hepatosplenomegaly present Percussion: Yes normal to percussion Auscultation: normal bowel sounds Rectal Exam - Male: Yes deferred Skin General skin exam: no rashes or lesions noted, turgor normal, skin not dry, no jaundice, No spider nevi and no striae Rashes: no rashes Nails: normal Neuro General: oriented to person, oriented to place and oriented to time Cranial nerves: Yes Equal, round and reactive pupils present and Yes Normal hearing present Speech: No Abnormal speech present Extrem General: Yes normal to inspection, No clubbing, No cyanosis and No edema Psych Appearance: grossly normal and well kempt Mental Status: mental status grossly normal Speech and movement: Normal speech and movement present Affect: normal affect Attitude: cooperative Thought process: Normal thought process present and not confabulating Thought content: Normal thought content present Insight: Good insight present (Psych) Judgement: Good judgement present (Psych) Assessment & Plan Assessment & Plan (1) GERD (gastroesophageal reflux disease): Code(s): K21.9 - Gastro-esophageal reflux disease without esophagitis Category: Medical Qualifiers: Esophagitis presence: without esophagitis Qualified Code(s): K21.9 - Gastro-esophageal reflux disease without esophagitis (2) Small intestinal bacterial overgrowth (SIBO), hydrogen subtype: Code(s): K63.8211 - Small intestinal bacterial overgrowth, hydrogen-subtype Category: Medical (3) Umbilical pain: Code(s): R10.33 - Periumbilical pain Category: Medical (4) Transaminitis: Code(s): R74.01 - Elevation of levels of liver transaminase levels Category: Medical Plan He continues on his omeprazole 20 mg once a day with good control of his GERD. HIS CONCERN TODAY IS PAIN in his umbilicus especially if he does anything that involves using his stomach muscles. He also says it is ?popping out? and I do note this as he shows it to me on physical exam. There is no mention of this on the ultrasound that we performed for the liver and I think that they probably did not look specifically at this area. I will order a limited ultrasound to give him better insight. Because I know to see does have elevated liver tests and because there was fatty liver on the ultrasound we talked about slow steady weight loss. 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 However looking at his profile he has a BMI over 35 and comorbid sleep apnea and cardiac condition so he should be eligible for a GLP 1 type of medication like will go via or Mounjaro. I have advised him to speak with his primary care provider about this and if they are not comfortable trying to prescribe it he may want to look at the [facility] weight management as they do medication therapy that is not offered at our weight loss clinic. I am also going to work him up for transaminitis as he gets a mild bump in his ALT. This also would benefit from weight loss so this will add to the likelihood of getting him approved if he wants to try this kind of medication. Return office visit in 3 months Orders: Orders US abdomen limited Today R10.33 - Periumbilical pain HIV Ab/Ag Today R74.01 - Elevation of levels of liver transaminase levels Smooth Muscle Antibody Today R74.01 - Elevation of levels of liver transaminase levels Liver Fibrosis Pnl Today R74.01 - Elevation of levels of liver transaminase levels Alpha Fetoprotein Today R74.01 - Elevation of levels of liver transaminase levels KEDAR Reflex Titer and Pattern Today R74.01 - Elevation of levels of liver transaminase levels Hepatitis A,B,C Profile Today R74.01 - Elevation of levels of liver transaminase levels Mitochondrial Antibody Today R74.01 - Elevation of levels of liver transaminase levels Coding Level of Care Code Est Pt Level 4 (28333) Diagnoses Gastroesophageal reflux disease without esophagitis K21.9 Esophagitis presence: without esophagitis Small intestinal bacterial overgrowth (SIBO), hydrogen subtype K63.8211 Umbilical pain R10.33 Transaminitis R74.01 Time Spent (min) 39
[2024-07-13 15:24] VITALS: BP 140/80; PULSE 72; O2SAT 96; BMI 36.2
== END 2024-07-13 16:23 | disposition home or self-care (01) ==
LOC: HO.HGI 15:14
PROVIDERS: PCP Internal Medicine; Visit Provider Nurse Practitioner
DX: K21.9 Gastro-esophageal reflux disease without esophagitis (principal); K63.8211 Small intestinal bacterial overgrowth, hydrogen-subtype; R10.33 Periumbilical pain; R74.01 Elevation of levels of liver transaminase levels
CPT/HCPCS: 99214

== ENCOUNTER 2024-07-18 10:40 | Outpatient (REF) | payer BC, SELFPAY ==
[2024-07-18 12:03] LABS: Mean Corpuscular Hemoglobin 32.3 pg (27.0-33.0); Mean Corpuscular Volume 92.4 fL (80.0-98.0); Mean Platelet Volume 9.8 fL (9.4-12.4); Platelet Count 220 X10*3/uL (160-400); Red Blood Count 4.33 X10*6/uL (4.60-5.80); Red Cell Distribution Width 11.9 % (11.0-16.0)
[2024-07-18 12:38] LABS: Anion Gap 14 (12-20); Blood Urea Nitrogen 18 mg/dL (9-16); Calcium 9.2 mg/dL (8.4-10.2); Carbon Dioxide 24 mmol/L (22-29); Chloride 107 mmol/L (96-108); Estimated Glomerular Filt Rate > 60; Glucose Random 103 mg/dL (60-115); Potassium 4.2 mmol/L (3.3-5.1); Sodium 141 mmol/L (135-145)
[2024-07-18 12:42] LABS: B Type Natriuretic Peptide 106 pg/mL (<100)
== END 2024-07-18 10:41 | disposition home or self-care (01) ==
LOC: HO.LAB 10:40
PROVIDERS: PCP Internal Medicine; Visit Provider Internal Medicine Cardiovascular Disease
DX: I48.19 Other persistent atrial fibrillation (principal)
CPT/HCPCS: 36415; 80048; 83880; 85027; 93005

== ENCOUNTER 2024-07-18 10:40 | Outpatient (AMB) | payer BC, SELFPAY ==
[2024-07-18 11:02] VITALS: BP 120/74; PULSE 78; BMI 35.4
--- NOTE | 2024-07-18 11:02 | MHC.OFFVIS ---
Vital Signs 07/18/24 11:02 Height 5 ft 10 in Weight 246 lb 14.684 oz BMI 35.4 BP 120/74 Blood Pressure Location Lt brachial Position Sitting Pulse 78 Intake Visit Reasons: 1 yr fu after echo Intake Note: 1 year follow-up with ekg after echo c/o sob often Well Services Operator Required: No Allergies codeine [CODEINE] Allergy (Severe, Verified 07/13/24 15:17) HIVES ibuprofen [From MOTRIN] Allergy (Severe, Verified 07/13/24 15:17) HIVES Medication List - Last Reconciled 07/18/24 by Armando Barton MD atorvastatin 10 mg PO DAILY cholecalciferol (vitamin D3) 50 mcg PO DAILY 90 days diltiazem HCl CD 240 mg PO DAILY omeprazole 20 mg PO DAILY 90 days HPI Comments Details: Henok comes for his usual 1 year follow-up. However says over the last 6-8 months he has been noticing increasing symptoms exertional shortness of breath walking short distances which she was not noticing a year ago. He also has had some episodes when he wakes up from sleep with shortness of breath. He has been diagnose with sleep apnea in the past but has changed his sleeping orientation says that he is snoring and stopped. He was not developed any significant leg edema. He is currently taking Cardizem therapy. Most recent echocardiogram showed preserved LV ejection fraction with moderate biatrial enlargement with enlarged RV with low normal LV systolic function. There was no significant valvular abnormality. Patient was worried about his shortness of breath and thinks that this might be related to his abdominal obesity. He has been interested in losing weight. He is not currently participate in any regular physical activity. [facility] Medical History Abdominal bloating Gas bloat syndrome Neck pain GERD without esophagitis Ventral hernia Diastasis recti Vitamin D deficiency Persistent atrial fibrillation Obesity (BMI 30-39.9) Carpal tunnel syndrome Osteoarthritis of knees, bilateral Obstructive sleep apnea Pure hypercholesterolemia Impaired fasting glucose Surgical History Hx of colonoscopy History of surgery Family History Father CVD (cardiovascular disease) Cancer Mother Medical history unknown Social History Housing: House Alcohol intake: current Alcohol intake frequency: holidays/special occasions only Patient Tobacco Use Status: Never used Tobacco e-Cigarette/Vaping Use: Never Used Second Hand Smoke Exposure: Yes service: No Current occupational status: employed 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 Cognitive needs: No Hearing needs: No Vision needs: No Review of Systems Const Denies chills, Denies fatigue, Denies fever(s), Denies frequent falls, Denies weakness, Denies weight gain and Denies weight loss ENT Denies dizziness Card Denies chest pain, Denies leg edema, Denies lightheadedness, Denies palpitations, Denies dyspnea, Denies dyspnea on exertion, Denies orthopnea and Denies other (loss of consciousness) Resp Denies cough, Denies dyspnea and Denies dyspnea on exertion GI Denies hematochezia and Denies change in stool character Musc Denies abnormal gait, Denies muscle weakness, Denies numbness, Denies radiating pain into limb and Denies tingling Neuro Denies abnormal gait, Denies dizziness, Denies frequent falls, Denies numbness, Denies tingling and Denies weakness Endo Denies fatigue and Denies palpitations Physical Exam Vital Signs: Last Vital Signs Pulse 78 07/18/24 11:02 BP 120/74 07/18/24 11:02 BMI result Body Mass Index 35.4 Const General: cooperative, comfortable, no acute distress, alert and awake Nutritional Appearance: obese Orientation/consciousness: patient oriented x3 Limitations: no limitations Neck Neck: Yes trachea midline, Yes supple and Yes no JVD Chest Chest palpation & inspection: normal inspection of the chest Resp Effort & Inspection: normal respiratory effort Auscultation: clear to auscultation bilaterally Cardio Jugular venous distension: no JVD Rhythm: abnormal rhythm irregularly irregular Heart sounds: S1 normal heart sound present and S2 normal heart sound present GI Auscultation: normal bowel sounds Skin General skin exam: no rashes or lesions noted Neuro General: patient oriented x3 and no focal motor deficits Extrem General: Yes no clubbing, cyanosis or edema Psych Appearance: grossly normal Office Procedures EKG Details: EKG shows atrial fibrillation with nonspecific ST T wave changes [id number], Complete Assessment & Plan Assessment & Plan (1) Persistent atrial fibrillation: Comment: Patient has failed rhythm control in the past with cardioversion and antiarrhythmic drug therapy Code(s): I48.19 - Other persistent atrial fibrillation Category: Medical Plan: Chronic persistent atrial fibrillation in this middle-aged man has failed rhythm control approach in the past and had deferred any invasive approach with ablation at that point time. He had tried multiple antiarrhythmic drug therapy and failed with. He was asymptomatic for a time but now is having increasing symptoms exertional shortness of breath and some symptoms suggestive of PND without any clinical evidence of fluid overload. However incipient congestive heart failure is highly likely. His LV ejection fraction is preserved although has moderate biatrial enlargement as well as RV enlargement. Sleep apnea also needs to be ruled out. Will suggest a BNP and BNP today. If he was elevated BNP would start him on Jardiance therapy to help with the symptoms. He will definitely benefit from weight loss program and given his multiple risk factors I have taken the liberty to prescribe him GLP 1 antagonist. Possible side effects were discussed with him. Follow up in the clinic in 3 months time, sooner p.r.n.. Thank you for allowing me to partake in his care Orders: Orders Basic Metabolic Panel Today I48.19 - Other persistent atrial fibrillation B Type Natriuretic Peptide Today I48.19 - Other persistent atrial fibrillation Complete Blood Count no Diff Today I48.19 - Other persistent atrial fibrillation Medications: New semaglutide (Ozempic) for 4 weeks 0.25 mg (0.368 mL) subcut QWEEK 3 mL 0RF I48.19 - Other persistent atrial fibrillation Coding Level of Care Code Est Pt Level 4 (82093) Complex EM visit Add On G2211 Diagnoses Persistent atrial fibrillation I48.19 CPT Codes EKG - CPT: 30562-[id number], Complete ([id number])
== END 2024-07-18 11:37 | disposition home or self-care (01) ==
LOC: HO.HCS 10:41
PROVIDERS: PCP Internal Medicine; Visit Provider Internal Medicine Cardiovascular Disease
DX: I48.19 Other persistent atrial fibrillation (principal)
CPT/HCPCS: 93010; 99214

== ENCOUNTER 2024-08-28 08:55 | Outpatient (REF) | payer BC, SELFPAY ==
--- NOTE | ~2024-08-28 | US_ITS ---
CLINICAL HISTORY: R10.33 - Periumbilical pain Limited abdominal ultrasound Comparison: None Findings: Grayscale and color Doppler images were obtained of the area of concern with a high-frequency linear transducer. In region of the umbilicus there is a hernia which contains fat and bowel. The hernia opening measures 1.4 cm. Impression: Umbilical hernia containing fat and bowel. This document has been electronically signed by: Casie Ulrich MD on 08/28/2024 14:59:49
== END 2024-08-28 08:56 | disposition home or self-care (01) ==
LOC: HO.US 08:55
PROVIDERS: PCP Internal Medicine; Visit Provider Nurse Practitioner
DX: R10.33 Periumbilical pain (principal)
CPT/HCPCS: 76705

== ENCOUNTER → 2024-08-28 08:58 | Outpatient (BNV) | payer BC, SELFPAY | PROVIDERS: PCP Internal Medicine; Visit Provider Radiology Diagnostic Radiology | DX: K42.9 Umbilical hernia without obstruction or gangrene (principal) | CPT/HCPCS: 76705 ==

== ENCOUNTER 2024-10-11 10:44 | Outpatient (AMB) | payer BC, SELFPAY ==
[2024-10-11 10:48] VITALS: BP 138/87; PULSE 84; BMI 35.3
--- NOTE | 2024-10-11 10:48 | A.OFFVIS_ITS ---
Vital Signs 10/11/24 10:48 Height 5 ft 10 in Weight 246 lb 0.574 oz BMI 35.3 BP 138/87 Blood Pressure Location Lt brachial Position Sitting Pulse 84 Intake Visit Reasons: LAUGHLIN? GERD Intake Note: Henok returns to in office follow up of labs and US. CC: Patient reports that he was told he has an abdominal hernia when he had the US done. Per patient he was contacted by surgery already. Denies having any new GI symptoms or concerns today. Marketing Assistant Required: No Accompanied by: Self / Same As Patient Allergies codeine (CODEINE) Allergy (Severe, Verified 10/11/24 11:00) HIVES ibuprofen (From MOTRIN) Allergy (Severe, Verified 10/11/24 11:00) HIVES HPI HPI LAUGHLIN? GERD: Details: Assessment & Plan (1) GERD (gastroesophageal reflux disease): Code(s): K21.9 - Gastro-esophageal reflux disease without esophagitis Category: Medical Qualifiers: Esophagitis presence: without esophagitis Qualified Code(s): K21.9 - Gastro-esophageal reflux disease without esophagitis (2) Small intestinal bacterial overgrowth (SIBO), hydrogen subtype: Code(s): K63.8211 - Small intestinal bacterial overgrowth, hydrogen-subtype Category: Medical (3) Umbilical pain: Code(s): R10.33 - Periumbilical pain Category: Medical (4) Transaminitis: Code(s): R74.01 - Elevation of levels of liver transaminase levels Category: Medical Plan He continues on his omeprazole 20 mg once a day with good control of his GERD. HIS CONCERN TODAY IS PAIN in his umbilicus especially if he does anything that involves using his stomach muscles. He also says it is ?popping out? and I do note this as he shows it to me on physical exam. There is no mention of this on the ultrasound that we performed for the liver and I think that they probably did not look specifically at this area. I will order a limited ultrasound to give him better insight. Because I know to see does have elevated liver tests and because there was fatty liver on the ultrasound we talked about slow steady weight loss. 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 However looking at his profile he has a BMI over 35 and comorbid sleep apnea and cardiac condition so he should be eligible for a GLP 1 type of medication like will go via or [employer]. I have advised him to speak with his primary care provider about this and if they are not comfortable trying to prescribe it he may want to look at the [facility] weight management as they do medication therapy that is not offered at our weight loss clinic. I am also going to work him up for transaminitis as he gets a mild bump in his ALT. This also would benefit from weight loss so this will add to the likelihood of getting him approved if he wants to try this kind of medication. Return office visit in 3 months Orders: Orders US abdomen limited Today R10.33 - Periumbilical pain HIV Ab/Ag Today R74.01 - Elevation of levels of liver transaminase levels Smooth Muscle Antibody Today R74.01 - Elevation of levels of liver transaminase levels Liver Fibrosis Pnl Today R74.01 - Elevation of levels of liver transaminase levels Alpha Fetoprotein Today R74.01 - Elevation of levels of liver transaminase levels KEDAR Reflex Titer and Pattern Today R74.01 - Elevation of levels of liver transaminase levels Hepatitis A,B,C Profile Today R74.01 - Elevation of levels of liver transaminase levels Mitochondrial Antibody Today R74.01 - Elevation of levels of liver transaminase levels 8 LABS Laboratory Tests 04/24/24 07/13/24 07/18/24 07:52 16:37 11:59 Hemoglobin A1c % 5.9 Total Bilirubin 0.5 AST 32 ALT 42 H Alkaline Phosphatase 60 Liver Fibrosis Stage F0 B-Natriuretic Peptide 106 H Alpha Fetoprotein 3.1 TSH 2.36 KEDAR Screen POSITIVE A KEDAR Titer 1:80 H Hepatitis A IgM Ab Nonreactive Hep Bs Antigen Negative Hep Bs Antibody NONREACTIVE Hep B Core Total Ab Nonreactive Hepatitis C Ab (EIA) Nonreactive HIV 1&2 Ab/P24 Ag 4thGn Nonreactive US ABD 08/28/2024 Findings: Grayscale and color Doppler images were obtained of the area of concern with a high-frequency linear transducer. In region of the umbilicus there is a hernia which contains fat and bowel. The hernia opening measures 1.4 cm. Impression: Umbilical hernia containing fat and bowel. 03/03/2024 IMPRESSION: Diffusely heterogeneous hepatic echotexture with slightly increased echogenicity is characteristic of hepatocellular disease and correlation with clinical and laboratory exam recommended to determine further management. TODAYS VISIT He continues on his omeprazole 20 mg once a day with good control of his GERD. He has an upcoming appointment with General surgery to discuss his hernia repair. He is aware that he needs to lose about 25 lb as this would be beneficial for his cardiac status, his fatty liver, and his hernia. However, they have tried to get him on Wegovy and they have declined it. 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 Return office visit in 6 months [facility] Medical History (Updated 10/11/24 @ 11:33 by ARLET Chapin) Transaminitis Abdominal bloating Gas bloat syndrome Neck pain GERD without esophagitis Ventral hernia Diastasis recti Vitamin D deficiency Persistent atrial fibrillation Obesity (BMI 30-39.9) Carpal tunnel syndrome Osteoarthritis of knees, bilateral Obstructive sleep apnea Pure hypercholesterolemia Impaired fasting glucose Surgical History Hx of colonoscopy History of surgery Family History Father CVD (cardiovascular disease) Cancer Mother Medical history unknown Social History Housing: House Alcohol intake: current Alcohol intake frequency: holidays/special occasions only Patient Tobacco Use Status: Never used Tobacco e-Cigarette/Vaping Use: Never Used Second Hand Smoke Exposure: Yes service: No Current occupational status: employed 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 Cognitive needs: No Hearing needs: No Vision needs: No Review of Systems Const Denies fatigue, Denies fever(s), Denies night sweats, Denies poor appetite and Denies weight loss ENT Reports Normal hearing present, Denies dental pain, Denies dysphagia, Denies hearing loss, Denies mouth pain, Denies odynophagia, Denies throat swelling, Den ies tongue swelling and Reports other (Dentition adequate) Card Reports no additional complaints Resp Reports no additional complaints GI Details: Reports abdominal pain, Denies melena, Denies bloating, Denies hematochezia, Denies constipation, Denies GI cramping, Denies dysphagia, Denies excessive flatus, Denies early satiety, Reports heartburn, Denies diarrhea, Denies nausea, Denies odynophagia, Denies vomiting and Denies hematemesis Skin/Breast Denies pruritus, Denies lesions, Denies rash and Denies jaundice Neuro Reports Normal hearing present and Denies Abnormal speech present Endo Denies fatigue Aller/Immun Denies throat swelling and Denies tongue swelling Physical Exam Vital Signs: Last Vital Signs Pulse 84 10/11/24 10:48 BP 138/87 10/11/24 10:48 BMI result Body Mass Index 35.3 Const General: cooperative, no acute distress, well developed and well groomed Nutritional Appearance: well nourished and obese Orientation/consciousness: oriented to person, oriented to place and oriented to time Limitations: No language barrier HEENT Head: Yes normocephalic and Yes atraumatic Eyes General: appearance normal, both eyes and all related structures Pupils: Equal, round and reactive pupils present Neck Neck: Yes normal visual inspection and Yes no lymphadenopathy Thyroid: Thyroid normal Resp Effort & Inspection: normal respiratory effort and able to speak in complete sentences Auscultation: clear to auscultation bilaterally Cardio Rate: regular rate Rhythm: regular rhythm Heart sounds: Normal, physiologic split S2 sound present Peripheral pulses: radial pulses present and posterior tibial pulses present GI Inspection: No distended, No Abdominal panniculus present, Yes obesity and Yes visible herniation Palpation (GI): Soft to palpation, nontender, no guarding, not rigid and No hepatosplenomegaly present Percussion: Yes normal to percussion Auscultation: normal bowel sounds Rectal Exam - Male: Yes deferred Skin General skin exam: no rashes or lesions noted, turgor normal, skin not dry, no jaundice, No spider nevi and no striae Rashes: no rashes Nails: normal Neuro General: oriented to person, oriented to place and oriented to time Cranial nerves: Yes Equal, round and reactive pupils present and Yes Normal hearing present Speech: No Abnormal speech present Extrem General: Yes normal to inspection, No clubbing, No cyanosis and No edema Psych Appearance: grossly normal and well kempt Mental Status: mental status grossly normal Speech and movement: Normal speech and movement present Affect: normal affect Attitude: cooperative Thought process: Normal thought process present and not confabulating Thought content: Normal thought content present Insight: Good insight present (Psych) Judgement: Good judgement present (Psych) Assessment & Plan Assessment & Plan (1) LAUGHLIN (nonalcoholic steatohepatitis): Code(s): K75.81 - Nonalcoholic steatohepatitis (LAUGHLIN) Category: Medical (2) GERD (gastroesophageal reflux disease): Code(s): K21.9 - Gastro-esophageal reflux disease without esophagitis Category: Medical Qualifiers: Esophagitis presence: without esophagitis Qualified Code(s): K21.9 - Gastro-esophageal reflux disease without esophagitis (3) Umbilical hernia: Code(s): K42.9 - Umbilical hernia without obstruction or gangrene Category: Medical (4) Umbilical pain: Code(s): R10.33 - Periumbilical pain Category: Medical Plan He continues on his omeprazole 20 mg once a day with good control of his GERD. He has an upcoming appointment with General surgery to discuss his hernia repair. He is aware that he needs to lose about 25 lb as this would be beneficial for his cardiac status, his fatty liver, and his hernia. However, they have tried to get him on Wegovy and they have declined it. 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 Return office visit in 6 months Medications: Refilled omeprazole 20 mg PO DAILY 90 caps 1RF 90 days Coding Level of Care Code Est Pt Level 3 (49832) Diagnoses LAUGHLIN (nonalcoholic steatohepatitis) K75.81 Gastroesophageal reflux disease without esophagitis K21.9 Esophagitis presence: without esophagitis Umbilical hernia K42.9 Umbilical pain R10.33
== END 2024-10-11 11:20 | disposition home or self-care (01) ==
LOC: HO.HGI 10:45
PROVIDERS: PCP Internal Medicine; Visit Provider Nurse Practitioner
DX: K75.81 Nonalcoholic steatohepatitis (NASH) (principal); K21.9 Gastro-esophageal reflux disease without esophagitis; K42.9 Umbilical hernia without obstruction or gangrene; R10.33 Periumbilical pain
CPT/HCPCS: 99213

== ENCOUNTER 2024-10-23 11:28 | Outpatient (REF) | payer BC, SELFPAY ==
[2024-10-23 11:43] LABS: MANUAL DIFF FLAG NO
[2024-10-23 12:14] LABS: Hematocrit 43.8 % (42.0-52.0); Hemoglobin 15.2 g/dl (14.0-18.0); Imm Gran Abs Auto 0.02 X10*3/uL (0.00-0.03); Imm Gran Pct Auto 0.4 % (0.0-0.4); Lymphocytes Absolute Auto 1.8 X10*3/uL (1.2-4.9); Mean Corpuscular HGB Conc 34.7 g/dl (31.0-36.0); Mean Corpuscular Hemoglobin 32.3 pg (27.0-33.0); Mean Corpuscular Volume 93.0 fL (80.0-98.0); NRBC Abs Auto 0.000 X10*3/uL (0.0-0.012); NRBC Pct Auto 0.0 /100WBC (0.0-0.2); Platelet Count 225 X10*3/uL (160-400); Red Blood Count 4.71 X10*6/uL (4.60-5.80); White Blood Count 5.2 X10*3/uL (4.8-10.8)
[2024-10-23 12:26] LABS: Hemoglobin A1C 161.8094 umol/L; Total Hemoglobin (HGBA1C) 3928.1567 umol/L
[2024-10-23 12:39] LABS: B Type Natriuretic Peptide 100 pg/mL (<100)
[2024-10-23 12:42] LABS: Alanine Aminotransferase 36 U/L (0-40); Albumin Level 4.3 g/dL (3.5-5.0); Alkaline Phosphatase 65 U/L (39-117); Anion Gap 11 (12-20); Aspartate Amino Transferase 32 U/L (5-37); Blood Urea Nitrogen 14 mg/dL (9-16); Calcium 9.0 mg/dL (8.4-10.2); Carbon Dioxide 24 mmol/L (22-29); Chloride 109 mmol/L (96-108); Cholesterol 172 mg/dL (<200); Estimated Glomerular Filt Rate > 60; HDL Cholesterol 40 mg/dL (>40); Potassium 3.9 mmol/L (3.3-5.1); Sodium 140 mmol/L (135-145); Total Protein 7.7 g/dL (6.5-8.0); Triglycerides 79 mg/dL (<150)
[2024-10-23 13:11] LABS: Folate 11.4 ng/mL (> or = 4.0); Vitamin B12 455 pg/mL (200-900)
== END 2024-10-23 11:29 | disposition home or self-care (01) ==
LOC: HO.LAB 11:28
PROVIDERS: PCP Internal Medicine; Visit Provider Internal Medicine Cardiovascular Disease
DX: I48.19 Other persistent atrial fibrillation (principal); E11.9 Type 2 diabetes mellitus without complications; E78.00 Pure hypercholesterolemia, unspecified; D64.9 Anemia, unspecified; E55.9 Vitamin D deficiency, unspecified; E53.8 Deficiency of other specified B group vitamins
CPT/HCPCS: 36415; 80053; 80061; 82306; 82607; 82746; 83036; 83880; 84443; 85025

== ENCOUNTER 2024-10-24 09:47 | Outpatient (AMB) | payer BC, SELFPAY ==
[2024-10-24 10:07] VITALS: BP 116/76; PULSE 72; BMI 34.8
--- NOTE | 2024-10-24 10:07 | A.OFFVIS_ITS ---
Vital Signs 10/24/24 10:07 Height 5 ft 10 in Weight 242 lb 8.136 oz BMI 34.8 BP 116/76 Blood Pressure Location Lt brachial Position Sitting Pulse 72 Intake Visit Reasons: 3 mth f/up meds Intake Note: 3 month follow-up after labs and echo Director Hardware Required: No Allergies codeine (CODEINE) Allergy (Severe, Verified 10/11/24 11:00) HIVES ibuprofen (From MOTRIN) Allergy (Severe, Verified 10/11/24 11:00) HIVES Medication List - Last Reconciled 10/24/24 by Armando Barton MD atorvastatin 10 mg PO DAILY cholecalciferol (vitamin D3) 50 mcg PO DAILY 90 days diltiazem HCl CD 240 mg PO DAILY empagliflozin (Jardiance) 10 mg PO DAILY HPI Comments Details: Guille comes for follow-up. Since I last saw him he had elevated BNP and we had started him on Jardiance therapy. Since then his BNP has improved and he says his shortness of breath and PND have significantly improved. Findings suggestive of early incipient congestive heart failure. He has not developed a small umbilical hernia which is painful and is planning to see surgery in the near future for possible surgery on it. Denies any exertional intolerance at this point time. Denies any prolonged palpitation irregular heartbeat. Taking all his medications. He is very interested in losing weight. Continues to exercise. He has deferred oral anticoagulation therapy although we need to discuss this again [facility] Medical History Transaminitis Abdominal bloating Gas bloat syndrome Neck pain GERD without esophagitis Ventral hernia Diastasis recti Vitamin D deficiency Persistent atrial fibrillation Obesity (BMI 30-39.9) Carpal tunnel syndrome Osteoarthritis of knees, bilateral Obstructive sleep apnea Pure hypercholesterolemia Impaired fasting glucose Surgical History Hx of colonoscopy History of surgery Family History Father CVD (cardiovascular disease) Cancer Mother Medical history unknown Social History Housing: House Alcohol intake: current Alcohol intake frequency: holidays/special occasions only Patient Tobacco Use Status: Never used Tobacco e-Cigarette/Vaping Use: Never Used Second Hand Smoke Exposure: Yes service: No Current occupational status: employed 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 Cognitive needs: No Hearing needs: No Vision needs: No Review of Systems Const Denies chills, Denies fatigue, Denies fever(s), Denies frequent falls, Denies weakness, Denies weight gain and Denies weight loss ENT Denies dizziness Card Denies chest pain, Denies leg edema, Denies lightheadedness, Denies palpitations, Denies dyspnea, Denies dyspnea on exertion, Denies orthopnea and Denies other (loss of consciousness) Resp Denies cough, Denies dyspnea and Denies dyspnea on exertion GI Denies hematochezia and Denies change in stool character Musc Denies abnormal gait, Denies muscle weakness, Denies numbness, Denies radiating pain into limb and Denies tingling Neuro Denies abnormal gait, Denies dizziness, Denies frequent falls, Denies numbness, Denies tingling and Denies weakness Endo Denies fatigue and Denies palpitations Physical Exam Vital Signs: Last Vital Signs Pulse 72 10/24/24 10:07 BP 116/76 10/24/24 10:07 BMI result Body Mass Index 34.8 Const General: cooperative, comfortable, no acute distress, alert and awake Nutritional Appearance: obese Orientation/consciousness: patient oriented x3 Limitations: no limitations Neck Neck: Yes trachea midline, Yes supple and Yes no JVD Chest Chest palpation & inspection: normal inspection of the chest Resp Effort & Inspection: normal respiratory effort Auscultation: clear to auscultation bilaterally Cardio Jugular venous distension: no JVD Rhythm: abnormal rhythm irregularly irregular Heart sounds: S1 normal heart sound present and S2 normal heart sound present GI Auscultation: normal bowel sounds Skin General skin exam: no rashes or lesions noted Neuro General: patient oriented x3 and no focal motor deficits Extrem General: Yes no clubbing, cyanosis or edema Psych Appearance: grossly normal Assessment & Plan Assessment & Plan (1) Heart failure with preserved ejection fraction: Code(s): I50.30 - Unspecified diastolic (congestive) heart failure Category: Medical Plan: Heart failure preserved ejection fraction with improving biomarkers with BNP as well as significantly improved symptoms. Patient has much improved functional capacity. Continue Jardiance therapy. Continue current rate control approach, see below for AFib management. Continue aggressive blood pressure control which is currently well optimized. Importance of low-salt diet was discussed. Encouraged to continue to participate in physical activity as tolerated and continue participate in weight loss program. He is going to try off market GLP 1 antagonist. (2) Persistent atrial fibrillation: Comment: Patient has failed rhythm control in the past with cardioversion and antiarrhythmic drug therapy Code(s): I48.19 - Other persistent atrial fibrillation Category: Medical Plan: Chronic persistent atrial fibrillation currently rate controlled. Has failed rhythm control approach and has now developed heart failure syndrome as above. Has at least moderate biatrial enlargement which limits possibility of maintaining rhythm in the future. Continue rate control approach. Strongly encouraged to participate in oral anticoagulation therapy. Will Re discussed with him. His risk of stroke is not low at this point in time. Will follow up in the clinic in 6 months time, sooner p.r.n.. Thank you for allowing me to partake in his care Coding Level of Care Code Est Pt Level 4 (47348) Complex EM visit Add On G2211 Diagnoses Heart failure with preserved ejection fraction I50.30 Persistent atrial fibrillation I48.19
== END 2024-10-24 10:32 | disposition home or self-care (01) ==
LOC: HO.HCS 09:48
PROVIDERS: PCP Internal Medicine; Visit Provider Internal Medicine Cardiovascular Disease
DX: I50.30 Unspecified diastolic (congestive) heart failure (principal); I48.19 Other persistent atrial fibrillation
CPT/HCPCS: 99214

== ENCOUNTER 2024-11-01 10:04 | Outpatient (AMB) | payer BC, SELFPAY ==
--- NOTE | 2024-11-01 10:11 | MHC.OFFVIS ---
Vital Signs 11/01/24 10:17 Height 5 ft 10 in Weight 215 lb BMI 30.8 BP 134/93 H Blood Pressure Location Rt brachial Position Sitting Pulse 77 Intake Visit Reasons: umbilical hernia Intake Note: Patient referred by Arcelia [facility]ICE for evaluation and treatment of umbilical hernia. Present since last fall. Patient c/o: sore, bulging out umbilicus area. Pain wearing belt, bending. Abdomen US: 08-28-2024 Training And Development Coordinator Required: No Accompanied by: Self / Same As Patient Allergies codeine (CODEINE) Allergy (Severe, Verified 11/01/24 10:15) HIVES ibuprofen (From MOTRIN) Allergy (Severe, Verified 11/01/24 10:15) HIVES Medication List - Last Reconciled 11/01/24 by Keenan Mane MD atorvastatin 10 mg PO DAILY cholecalciferol (vitamin D3) 50 mcg PO DAILY 90 days diltiazem HCl CD 240 mg PO DAILY empagliflozin (Jardiance) 10 mg PO DAILY HPI HPI umbilical hernia: Details: 59 year old male referred for an umbilical hernia. He has noticed this lump on his umbilicus for almost a year now. He says that this seemed to have increased in size. This is causing him some discomfort. He denies GI complaints although he does have a history of reflux disease. He follows the gastroenterology service for this. He says that he was told he had AFib in the past but he is not on any blood thinner. 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 [facility] Medical History Transaminitis Abdominal bloating Gas bloat syndrome Neck pain GERD without esophagitis Ventral hernia Diastasis recti Vitamin D deficiency Persistent atrial fibrillation Obesity (BMI 30-39.9) Carpal tunnel syndrome Osteoarthritis of knees, bilateral Obstructive sleep apnea Pure hypercholesterolemia Impaired fasting glucose Surgical History Hx of colonoscopy History of surgery Family History Father CVD (cardiovascular disease) Cancer Mother Medical history unknown Social History Housing: House Alcohol intake: current Alcohol intake frequency: holidays/special occasions only Patient Tobacco Use Status: Never used Tobacco e-Cigarette/Vaping Use: Never Used Second Hand Smoke Exposure: Yes service: No Current occupational status: employed 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 Cognitive needs: No Hearing needs: No Vision needs: No Review of Systems Const Denies chills and Denies fever(s) Card Denies chest pain, Denies dyspnea and Denies dyspnea on exertion Resp Denies cough, Denies dyspnea and Denies dyspnea on exertion GI Denies hematochezia and Denies change in bowel habits Denies hematuria and Denies difficulty urinating Musc Denies back pain and Denies limited range of motion Neuro Denies focal weakness and Denies convulsions Psych Denies depression and Denies mood swings Physical Exam Const General: comfortable and no acute distress Orientation/consciousness: patient oriented x3 Neck Neck: Yes no lymphadenopathy Resp Auscultation: clear to auscultation bilaterally Cardio Other: Atrial fibrillation GI Other: Umbilical hernia, about 2.5 cm, reducible, nontender Palpation (GI): Soft to palpation, nontender and no guarding Neuro General: patient oriented x3 Assessment & Plan Assessment & Plan (1) Umbilical hernia: Code(s): K42.9 - Umbilical hernia without obstruction or gangrene Category: Medical Plan He has a reducible umbilical hernia, about 2.5 cm as described above. He wants to proceed with repair. I explained to him the technique of repair with possible mesh placement. I reviewed the risks including but not limited to bleeding, infections, bowel injury, recurrence, as well as the benefits and alternatives. I also reviewed with him what to expect postoperatively . He understands and wants to proceed. He has a known history of atrial fibrillation. He is on anticoagulation and he is on Jardiance. I will have him seen by the bone plant supervisor before the procedure. Coding Level of Care Code New Pt Level 3 (28906) Diagnoses Umbilical hernia K42.9
[2024-11-01 10:17] VITALS: BP 134/93; PULSE 77; BMI 30.8
== END 2024-11-01 10:24 | disposition home or self-care (01) ==
LOC: HO.HGS 10:05
PROVIDERS: PCP Internal Medicine; Visit Provider Surgery
DX: K42.9 Umbilical hernia without obstruction or gangrene (principal)
CPT/HCPCS: 99203

== ENCOUNTER 2024-12-04 16:32 | Outpatient (AMB) | payer BC, SELFPAY ==
[2024-12-04 16:40] VITALS: BP 110/80; PULSE 81; O2SAT 96; BMI 35.0
--- NOTE | 2024-12-04 16:40 | A.OFFPC_ITS ---
Vital Signs 12/04/24 16:40 Height 5 ft 10 in Weight 244 lb BMI 35.0 BP 110/80 Blood Pressure Location Lt brachial Position Sitting Pulse 81 Pulse Source Pulse Oximeter Pulse Oximetry (%) 96 Oxygen Delivery Method Room Air Intake Visit Reasons: hyperlipidemia, AF, OA, IFG Master Of Ceremonies Required: No Accompanied by: Self / Same As Patient Allergies codeine (CODEINE) Allergy (Severe, Verified 12/04/24 17:08) HIVES, SOB ibuprofen (From MOTRIN) Allergy (Severe, Verified 12/04/24 17:08) HIVES, SOB Medication List - Last Reconciled 12/04/24 by Henok Cornejo MD atorvastatin 10 mg PO DAILY cholecalciferol (vitamin D3) 50 mcg PO DAILY 90 days diltiazem HCl CD 240 mg PO DAILY empagliflozin (Jardiance) 10 mg PO DAILY omeprazole 20 mg PO DAILY PRN Tobacco use date assessed: 12/04/24 Dental Screening Dental Screen Date: 12/04/24 Did you have a dental visit in the last 12 months?: No Did you have a dental problem in the last 6 months where you did not have access to dental care?: No Was dental information given to patient?: No HPI hyperlipidemia, AF, OA, IFG HPI Details Patient comes in today for his follow up visit States that he feels okay He is scheduled to have umbilical hernia repair done with Dr. Mane later this week He denies any headaches or dizziness Denies any chest pains, no increased shortness of breath No nausea/vomiting, no abdominal pain No change in bowel habits noted He had his follow-up labs done last month - to discuss his results He would also like to try getting Rx for Wegovy to help him lose some weight - is aware that his insurance may not agree to cover this at all [facility] Medical History Hx of skin cancer, basal cell Transaminitis Abdominal bloating Gas bloat syndrome Neck pain GERD without esophagitis Ventral hernia Diastasis recti Vitamin D deficiency Persistent atrial fibrillation Obesity (BMI 30-39.9) Carpal tunnel syndrome Osteoarthritis of knees, bilateral Obstructive sleep apnea Pure hypercholesterolemia Impaired fasting glucose Surgical History Hx of colonoscopy History of surgery Family History Father CVD (cardiovascular disease) Cancer Mother Medical history unknown Social History Housing: House Are you a primary hospice care transitions coordinator to a significant other at home: No Do you presently have visiting nurse or other home services: No Alcohol intake: current Alcohol intake frequency: holidays/special occasions only Patient Tobacco Use Status: Never used Tobacco e-Cigarette/Vaping Use: Never Used Second Hand Smoke Exposure: Yes service: No Current occupational status: employed Current occupation: [employer] Cognitive needs: No Hearing needs: No Vision needs: No Questionnaire PHQ-9 Over the last 2 weeks, how often have you been bothered by any of the following problems? Depression Screening Interpretation: Negative Depression Screening Done: Yes Source: Developed by Drs. Carrington Alvarez, Sandy Chambers, William Sanders and colleagues, with an educational carson from [employer]. Thrive Questionnaire Date Thrive assessed: 04/26/24 Currently or been in a relationship where the following occur: No concerns rep orted THRIVE Score: 0 AUDIT C Alcohol Use Questionnaire (AUDIT-C) 1. How often do you have a drink containing alcohol?: Monthly or less 2. How many drinks containing alcohol do you have on a typical day when you are drinking?: 1 or 2 3. How often do you have six or more drinks on one occasion?: Never Total Score: 1 Score Reviewed/Action Taken: Yes NONA-7 AMB Questionnaire NONA-7 Date NONA - 7 assessed: 04/26/24 Source: Developed by Drs. Carrington Alvarez, Sandy Chambers, William Sanders and colleagues, with an educational carson from [employer]. Review of Systems Const Denies chills, Denies fatigue, Denies fever(s) and Denies headache(s) ENT Denies dysphagia, Denies dizziness, Denies otalgia, Denies headache(s), Denies neck pain, Denies odynophagia and Denies sore throat Card Denies chest pain, Denies rapid heart rate, Denies irregular heart rhythm, Denies palpitations and Denies dyspnea Resp Denies chest congestion, Denies cough, Denies dyspnea and Denies wheezing GI Denies abdominal pain, Denies constipation, Denies dysphagia, Denies heartburn, Denies diarrhea, Denies nausea, Denies odynophagia and Denies vomiting Denies difficulty urinating, Denies dysuria, Denies nocturia and Denies urinary frequency Musc Denies back pain, Denies arthralgias and Denies neck pain Skin/Breast Denies rash Neuro Denies dizziness, Denies headache(s) and Denies paresthesias Endo Denies fatigue and Denies palpitations Aller/Immun Denies wheezing Physical exam (Primary Care) Vital Signs: Last Vital Signs Pulse 81 12/04/24 16:40 BP 110/80 12/04/24 16:40 Pulse Ox 96 12/04/24 16:40 Oxygen Delivery Method Room Air 12/04/24 16:40 BMI result Body Mass Index 35.0 Tobacco/Smoking Status: Tobacco use Status Tobacco use date assessed 12/04/24 12/04/24 16:42 Patient Tobacco Use Status Never used Tobacco 12/04/24 16:42 e-Cigarette/Vaping Use Never Used 12/04/24 16:42 Depression Screening Interpretation: Negative Thrive Assessment: Date of Thrive Assessment Date Thrive assessed 04/26/24 12/04/24 16:42 Currently or been in a relationship where the following occur: No concerns reported Const General: no acute distress and alert HENMT Ears: TM's normal bilaterally and EAC's normal Throat: Yes posterior oropharynx normal and Yes tonsils normal (no TP congestion) Neck Neck: Yes supple and No lymphadenopathy Thyroid: Thyroid normal Resp Auscultation: clear to auscultation bilaterally, no rales and no wheezes Cardio Rate: regular rate Rhythm: abnormal rhythm irregularly irregular Heart sounds: no murmurs GI Palpation (GI): Soft to palpation, nontender and Hernia present umbilical Auscultation: normal bowel sounds General: Yes no CVA tenderness Back/Spine/Pelvis Back: no CVA tenderness Thoracic/Lumbar Spine: No lumbar spinal tenderness Skin Rashes: no rashes Extrem General: Yes no clubbing, cyanosis or edema Results Reviewed Results Reviewed: Laboratory Tests 10/23/24 11:41 WBC 5.2 Hgb 15.2 Hct 43.8 Plt Count 225 Sodium 140 Potassium 3.9 Creatinine 1.02 Estimated GFR > 60 Fasting Glucose 112 H Hemoglobin A1c % 5.9 Calcium 9.0 AST 32 ALT 36 B-Natriuretic Peptide 100 Triglycerides 79 Cholesterol 172 LDL Cholesterol, Calc 117 H HDL Cholesterol 40 L Vitamin B12 455 25-OH Vitamin D Total 60.9 TSH 1.41 Coding Level of Care Code Est Pt Level 4 (62745) Diagnoses Persistent atrial fibrillation I48.19 Pure hypercholesterolemia E78.00 Impaired fasting glucose R73.01 Gastroesophageal reflux disease without esophagitis K21.9 Esophagitis presence: without esophagitis Obstructive sleep apnea G47.33 Primary osteoarthritis of both knees M17.0 Osteoarthritis type: primary Bilateral carpal tunnel syndrome G56.03 Laterality: bilateral Vitamin D deficiency E55.9 Umbilical hernia without obstruction and without gangrene K42.9 Obstruction and gangrene presence: without obstruction or gangrene Obesity (BMI 30-39.9) E66.9 Assessment & Plan Assessment & Plan (1) Persistent atrial fibrillation: Comment: Patient has failed rhythm control in the past with cardioversion and antiarrhythmic drug therapy Code(s): I48.19 - Other persistent atrial fibrillation Category: Medical Plan: Patient remains in atrial fibrillation but is rate-controlled Continue Diltiazem 240 mg QD Echocardiogram done back in June 2020 to assess cardiac function and chamber size came back normal except for mild biatrial enlargement Repeat echocardiogram done in May 2022 came out normal as well - left ventricular systolic function is normal and?the calculated ejection fraction is 61% by biplane method. No obvious valvular pathology seen on this study His most recent echocardiogram done in June 2024 revealed (+) normal LV ejection fraction at 55-60%, moderate biatrial enlargement, moderately enlarged RV with low normal RV systolic function, normal cardiac valvular Dopplers and no gross pericardial effusion He has reportedly been advised by cardiology that he may need to pursue rhythm control again in the future Follow up with cardiology as scheduled (2) Pure hypercholesterolemia: Code(s): E78.00 - Pure hypercholesterolemia, unspecified Category: Medical Plan: Results of his labs done last month reviewed and discussed with patient - he is advised that his total and LDL cholesterol have increased from previous although they are still in the normal/acceptable range Reinforced low cholesterol diet Continue Atorvastatin 10 mg QD for now Will recheck his labs and fasting lipids in 4 months for follow up (3) Impaired fasting glucose: Code(s): R73.01 - Impaired fasting glucose Category: Medical Plan: His HgbA1c was again unchanged from previous at 5.9% on his labs done last month Reinforced low calorie diet/exercise as tolerated Will continue to monitor his FBS and HgbA1c regularly (4) GERD (gastroesophageal reflux disease): Code(s): K21.9 - Gastro-esophageal reflux disease without esophagitis Category: Medical Qualifiers: Esophagitis presence: without esophagitis Qualified Code(s): K21.9 - Gastro-esophageal reflux disease without esophagitis Plan: Dietary restrictions reinforced Have reminded patient that the barium swallow that he did back in December 2021 revealed (+) small hiatal hernia and gastroesophageal reflux Continue Omeprazole 20 mg QD (5) Obstructive sleep apnea: Comment: no CPAP use Code(s): G47.33 - Obstructive sleep apnea (adult) (pediatric) Category: Medical Plan: Sleep study done back in April 2016 showed moderately severe YULISSA Patient has not been able to tolerate any CPAP device thus far; feels that he has been doing okay lately and that his symptoms have improved a lot since he changed his bed a couple of years ago and he is now sleeping in more of a semi- reclining position at night, which helps to correct some of his breathing issues when he is sleeping Have recommended that he should get this rechecked again, either with a repeat sleep study OR a formal referral to sleep medicine for further evaluation and management - patient states that he will call for referral when he is ready to get this looked into again (6) Osteoarthritis of knees, bilateral: Code(s): M17.0 - Bilateral primary osteoarthritis of knee Category: Medical Qualifiers: Osteoarthritis type: primary Qualified Code(s): M17.0 - Bilateral primary osteoarthritis of knee Plan: Continue OTC Tylenol or Advil PRN for pain Follow up with orthopedics as scheduled (7) Carpal tunnel syndrome: Code(s): G56.00 - Carpal tunnel syndrome, unspecified upper limb Category: Medical Qualifiers: Laterality: bilateral Qualified Code(s): G56.03 - Carpal tunnel syndrome, bilateral upper limbs Plan: He is encouraged again to continue using his wrist braces as needed to help minimize his wrist symptoms To consider referral to rheumatology (used to see Dr. Overton at [facility] [place] several years ago) or orthopedics if his symptoms progress or worsen (8) Vitamin D deficiency: Code(s): E55.9 - Vitamin D deficiency, unspecified Category: Medical Plan: Continue Vitamin D3 2000 units QD (9) Umbilical hernia: Code(s): K42.9 - Umbilical hernia without obstruction or gangrene Category: Medical Qualifiers: Obstruction and gangrene presence: without obstruction or gangrene Qualified Code(s): K42.9 - Umbilical hernia without obstruction or gangrene Plan: He is now scheduled to have umbilical hernia repair done by Dr. Mane later this week on 12/08/2024 (10) Obesity (BMI 30-39.9): Code(s): E66.9 - Obesity, unspecified Category: Medical Plan: Reinforced diet/exercise as tolerated/lose weight Per request, will try sending in Rx for Beclaudejaqueline to see if it will be covered by his insurance Plan Follow up in 4 months Orders: Orders TSH reflex Free T4 4 Months E78.00 - Pure hypercholesterolemia, unspecified Vitamin D 25-OH Total 4 Months E55.9 - Vitamin D deficiency, unspecified Complete Blood Count Auto Diff 4 Months D64.9 - Anemia, unspecified Comprehensive [place]. Panel Fast 4 Months E78.00 - Pure hypercholesterolemia, unspecified Hemoglobin A1c 4 Months E11.9 - Type 2 diabetes mellitus without complications Lipid Panel 4 Months E78.00 - Pure hypercholesterolemia, unspecified Microalbumin, Random (w Creat) 4 Months E11.9 - Type 2 diabetes mellitus without complications UA CC w/rflx Micro + Cult 4 Months R30.0 - Dysuria Medications: New semaglutide (weight loss) (Wegovy) administer weeks 1 through 4 of therapy 0.25 mg (0.5 mL) subcut QWEEK 2 mL 0RF 4 weeks E66.9 - Obesity, unspecified, Z98.84 - Bariatric surgery status Patient Instructions: Follow up in 4 months
== END 2024-12-04 17:23 | disposition home or self-care (01) ==
LOC: HO.HMCH 16:33
PROVIDERS: PCP Internal Medicine; Visit Provider Internal Medicine
DX: I48.19 Other persistent atrial fibrillation (principal); E78.00 Pure hypercholesterolemia, unspecified; E66.9 Obesity, unspecified; Z68.35 Body mass index [BMI] 35.0-35.9, adult; R73.01 Impaired fasting glucose; K21.9 Gastro-esophageal reflux disease without esophagitis; G47.33 Obstructive sleep apnea (adult) (pediatric); M17.0 Bilateral primary osteoarthritis of knee; G56.03 Carpal tunnel syndrome, bilateral upper limbs; E55.9 Vitamin D deficiency, unspecified; K42.9 Umbilical hernia without obstruction or gangrene

== ENCOUNTER 2024-12-08 08:04 | Day surgery (SDC) | payer BC, SELFPAY ==
[2024-11-29 12:06] VITALS: BMI 34.9
[2024-12-08 08:39] VITALS: BP 130/80; PULSE 63; RESP 14; TEMP 36.2; O2SAT 96
[2024-12-08] MEDS: Lactated Ringers 1,000 ML 50 ML IVCONT (08:46)
--- NOTE | 2024-12-08 08:54 | MHC.SHP ---
Pre-Procedural Eval Section A - 24 Hr Update-Section A only Date of Service: 12/08/24 Section B - Complete if H&P > 30 days Chief Complaint: Umbilical hernia without obstruction or gangrene Details of Present Illness: Has a reducible umbilical hernia Relevant Family History (Specify if Yes): No Relevant Social History: None Present Medications: see Short Stay Collaborative assessment Medical History: Significant History (CHF, Jensen, GERD, AFib) Allergies: Allergies Allergy/AdvReac Type Severity Reaction Status Date / Time codeine (CODEINE) Allergy Severe HIVES, SOB Verified 12/08/24 08:32 ibuprofen (From MOTRIN) Allergy Severe HIVES, SOB Verified 12/08/24 08:32 Review of Systems Sugical H&P ROS: Negative: Constitution, Cardiovascular, Respiratory and Gastrointestinal Exam Surgical H&P Exam: Normal: Heart and Normal: Lungs and Significant Findings: Abdomen (Reducible umbilical hernia) Plan Diagnosis/Plan: Unchanged I have reviewed the history and physical and performed a pertinent physical examination on my patient. No changes have occurred unless specified. Time Spent With Patient Time: Total time managing care of this patient today ____ minutes.
--- NOTE | 2024-12-08 08:55 | HO.ANESPROP2 ---
Documented by User: Kaci Sutton NP 12/06/24 12:49 HPI - Anesthesia Eval Consult details Narrative: 59yo M for Repair Hernia Umbilical Reducible with possible mesh Follows [facility] [place] [facility] for Heart failure preserved ejection fraction with improving biomarkers with BNP as well as significantly improved symptoms; PAF pt declines anticoag. Stable at 10/24/24. Anesthesia Pre-Procedure Meds Is the patient on any of the following meds?: GLP1/DPP4 and SGLT2 Inhib PMFSH Active Problems Active Problems: All Active Problems Heart failure with preserved ejection fraction (Acute) LAUGHLIN (nonalcoholic steatohepatitis) (Acute) Umbilical hernia (Acute) Umbilical pain (Acute) Small intestinal bacterial overgrowth (SIBO), hydrogen subtype (Acute) Orthostatic dizziness (Acute) Exocrine pancreatic insufficiency (Acute) Tubular adenoma of colon (Acute) Lipoma (Acute) Cervical spondylosis (Acute) Dyspnea (Acute) GERD (gastroesophageal reflux disease) (Acute) Diastasis recti (Acute) Vitamin D deficiency (Acute) Obesity (BMI 30-39.9) (Acute) Persistent atrial fibrillation (Acute) Carpal tunnel syndrome (Acute) Osteoarthritis of knees, bilateral (Acute) Obstructive sleep apnea (Acute) Pure hypercholesterolemia (Acute) Impaired fasting glucose (Acute) Past Medical History Medical History Hx of skin cancer, basal cell Transaminitis Abdominal bloating Gas bloat syndrome Neck pain GERD without esophagitis Ventral hernia Diastasis recti Vitamin D deficiency Persistent atrial fibrillation Obesity (BMI 30-39.9) Carpal tunnel syndrome Osteoarthritis of knees, bilateral Obstructive sleep apnea Pure hypercholesterolemia Impaired fasting glucose Family History Family History Father CVD (cardiovascular disease) Cancer Mother Medical history unknown Family history of problems with anesthesia: No Surgical History Surgical History Hx of colonoscopy History of surgery History of Problems with Anesthesia: No Social History Social History Housing: House Are you a primary career coach to a significant other at home: No Do you presently have visiting nurse or other home services: No Alcohol intake: current Alcohol intake frequency: holidays/special occasions only Patient Tobacco Use Status: Never used Tobacco e-Cigarette/Vaping Use: Never Used Second Hand Smoke Exposure: Yes Use of substances other than those prescribed or required for medical reasons: No Have you been hit, kicked, punched, or otherwise hurt by someone within the past year? If so, by whom?: No Are you DNR?: No Advance Directives: No Advance Directives Information Provided: Yes Advance Directives on File: No service: No Current occupational status: employed Current occupation: [employer] health Cognitive needs: No Hearing needs: No Vision needs: No Meds Allergies Allergy/AdvReac Type Severity Reaction Status Date / Time codeine (CODEINE) Allergy Severe HIVES, SOB Verified 12/08/24 08:32 ibuprofen (From MOTRIN) Allergy Severe HIVES, SOB Verified 12/08/24 08:32 Home Medications ?Medication ?Instructions ?Recorded ?Confirmed ?Last Taken ?Type omeprazole 20 mg tablet,delayed 20 mg PO DAILY PRN Gastric Reflux 11/29/24 12/08/24 Unknown History release Exam Height,Weight and Vital Signs: Height 5 ft 10 in Weight 110.223 kg Assessment and Plan Assessment Anesthesia Assessment: Chart Reviewed Final Anesthetic Review Family History of Problems with Anesthesia: No History of Problems with Anesthesia: No Documented by User: Ginette Ward DO 12/08/24 09:20 HPI - Anesthesia Eval Anesthesia Pre-Procedure Meds Is the patient on any of the following meds?: GLP1/DPP4 and SGLT2 Inhib PMFSH Past Medical History Medical History Hx of skin cancer, basal cell Transaminitis Abdominal bloating Gas bloat syndrome Neck pain GERD without esophagitis Ventral hernia Diastasis recti Vitamin D deficiency Persistent atrial fibrillation Obesity (BMI 30-39.9) Carpal tunnel syndrome Osteoarthritis of knees, bilateral Obstructive sleep apnea Pure hypercholesterolemia Impaired fasting glucose Family History Family History Father CVD (cardiovascular disease) Cancer Mother Medical history unknown Family history of problems with anesthesia: No Surgical History Surgical History Hx of colonoscopy History of surgery History of Problems with Anesthesia: No Social History Social History Housing: House Are you a primary career coach to a significant other at home: No Do you presently have visiting nurse or other home services: No Alcohol intake: current Alcohol intake frequency: holidays/special occasions only Patient Tobacco Use Status: Never used Tobacco e-Cigarette/Vaping Use: Never Used Second Hand Smoke Exposure: Yes Use of substances other than those prescribed or required for medical reasons: No Have you been hit, kicked, punched, or otherwise hurt by someone within the past year? If so, by whom?: No Are you DNR?: No Advance Directives: No Advance Directives Information Provided: Yes Advance Directives on File: No service: No Current occupational status: employed Current occupation: [employer] Cognitive needs: No Hearing needs: No Vision needs: No Meds Allergies Allergy/AdvReac Type Severity Reaction Status Date / Time codeine (CODEINE) Allergy Severe HIVES, SOB Verified 12/08/24 08:32 ibuprofen (From MOTRIN) Allergy Severe HIVES, SOB Verified 12/08/24 08:32 Home Medications ?Medication ?Instructions ?Recorded ?Confirmed ?Last Taken ?Type omeprazole 20 mg tablet,delayed 20 mg PO DAILY PRN Gastric Reflux 11/29/24 12/08/24 Unknown History release Exam Exam Date and Time: 12/08/24 0855 Height,Weight and Vital Signs: Height 5 ft 10 in Weight 110.223 kg Vital Signs Temperature 97.2 F 12/08/24 08:39 Pulse Rate 63 12/08/24 08:39 Respiratory Rate 14 12/08/24 08:39 Blood Pressure 130/80 12/08/24 08:39 Pulse Oximetry 96 12/08/24 08:39 Oxygen Delivery Method Room Air 12/08/24 08:39 Temperature 97.2 F 12/08/24 08:39 Pulse Rate 63 12/08/24 08:39 Respiratory Rate 14 12/08/24 08:39 Blood Pressure 130/80 12/08/24 08:39 Pulse Oximetry 96 12/08/24 08:39 Oxygen Delivery Method Room Air 12/08/24 08:39 Airway Mallampati Class: II TM Dist: <=3cm Neck ROM: Full Loose/Missing/Broken Teeth: No (patient denies any loose or broken teeth) Heart: S1S2 Lungs: CTAB Assessment and Plan Assessment Anesthesia Assessment: Anesthesia Plan Discussed and Chart Reviewed Final Anesthetic Review Family History of Problems with Anesthesia: No History of Problems with Anesthesia: No NPO: Yes ASA Class: III Final Preanesthetic Review: No Changes in Pt Med Stat, Meds/Allgs Chart Reviewed, Consent Obtained/Reviewed and Anes Risks/Benef Reviewed Patient Risk: Low Procedure Risk: Low Anesthetic Plan Anesthetic Plan: GA and Agree w/ Assess. and Plan Disposition: Standard PACU
--- NOTE | 2024-12-08 10:36 | W.PM.OPN ---
Operative Note Operative Note Date of Service: 12/08/24 Narrative: Preop diagnosis: Umbilical hernia, reducible Postop diagnosis: The same Procedure: Repair of umbilical hernia with Phasix mesh Surgeon: Keenan Mane MD 1st [employer] Machine Operator: MARI Watkins The patient is a 59-year-old male with a reducible umbilical hernia. He understood the technique of repair with mesh. He was aware of the risks, benefits, and alternatives He was brought to the operating room. He was placed supine under general anesthesia via laryngeal mask airway. The abdomen was prepped and draped in the usual sterile fashion. A surgical time-out was done. The patient received cefazolin 2 g IV preoperatively I infiltrated the planned line of incision with lidocaine 1%. I made a short infraumbilical transverse curvilinear incision with a blade 15. This carried down through the full-thickness of the skin subcutaneous fat. We dissected the umbilicus off as a flap Metzenbaum scissors and electrocautery until we are able to visualize the hernia. This was fat containing. I dissected the adhesions tethering the hernia to the fascial edge until was able to completely reduce the hernia through the defect. The defect was about 1 cm in diameter. I reinforced the defect with a small-sized Phasix mesh. This was secured to the fascial edge on both sides with Prolene 2 sutures using the Prolene straps of the mesh. I closed the fascial defect with a [id number] Maxon 1 stitch The umbilicus was tacked down to the fascia with a Polysorb 3-0 stitch to re-create the dimple. The subcutaneous layer was reapposed with Polysorb 3-0 simple interrupted sutures. Skin closure was achieved with Polysorb 4-0 subcuticular running stitch The area was infiltrated with Marcaine 0.5% for postop analgesia. Dressings were applied. The procedure was completed The patient tolerated procedure well. There were no immediate complications. Initial and final counts of sponges and instruments were correct. Estimated blood loss was less than 10 cc. The patient was extubated without difficulty and transferred to the recovery room with stable vital signs.
[2024-12-08 10:47] VITALS: BP 118/68; PULSE 62; RESP 18; TEMP 36.4; O2SAT 95
[2024-12-08 10:50] VITALS: BP 127/76; PULSE 75; RESP 18; O2SAT 95
[2024-12-08 10:55] VITALS: BP 108/69; PULSE 65; RESP 18; O2SAT 95
[2024-12-08 11:00] VITALS: BP 114/70; PULSE 58; RESP 18; TEMP 36.4; O2SAT 95
== END 2024-12-08 11:35 | disposition home or self-care (01) ==
PROVIDERS: PCP Internal Medicine; Visit Provider Surgery
PROC: (CPT 49591; principal; 2024-12-08 10:00)
DX: K42.9 Umbilical hernia without obstruction or gangrene (principal); K21.9 Gastro-esophageal reflux disease without esophagitis; I48.19 Other persistent atrial fibrillation; E78.00 Pure hypercholesterolemia, unspecified; E66.9 Obesity, unspecified; Z68.30 Body mass index [BMI] 30.0-30.9, adult; E55.9 Vitamin D deficiency, unspecified; R73.01 Impaired fasting glucose; G47.33 Obstructive sleep apnea (adult) (pediatric); M62.08 Separation of muscle (nontraumatic), other site; R14.0 Abdominal distension (gaseous); R74.01 Elevation of levels of liver transaminase levels; Z79.84 Long term (current) use of oral hypoglycemic drugs; Z79.899 Other long term (current) drug therapy; Z88.5 Allergy status to narcotic agent; Z88.6 Allergy status to analgesic agent
CPT/HCPCS: 49591; C1781; J0131; J0690; J1100; J2003; J2405; J2704; J2795; J3010

== ENCOUNTER → 2024-12-08 08:04 | Outpatient (BNV) | payer BC, SELFPAY | PROVIDERS: PCP Internal Medicine; Visit Provider Surgery | DX: K42.9 Umbilical hernia without obstruction or gangrene (principal) | CPT/HCPCS: 49591 ==

== ENCOUNTER 2024-12-21 08:33 | Outpatient (AMB) | payer BC, SELFPAY ==
--- NOTE | 2024-12-21 08:47 | MHC.OFFVIS ---
Vital Signs 12/21/24 08:48 Height 5 ft 10 in Weight 234 lb BMI 33.6 Intake Visit Reasons: s/p Umbilical Hernia poss mesh Intake Note: This patient presents for post-op assessment status post repair umbilical hernia with phasix mesh. Pt c/o; reports no complaints pertaining to surgery. Dianetic Counselor Required: No Accompanied by: Self / Same As Patient Allergies codeine (CODEINE) Allergy (Severe, Verified 12/21/24 08:52) HIVES, SOB ibuprofen (From MOTRIN) Allergy (Severe, Verified 12/21/24 08:52) HIVES, SOB HPI HPI s/p Umbilical Hernia poss mesh: Details: He underwent repair of an umbilical hernia with mesh last 12/08/2024. He tolerated procedure well. He says he feels ?good?. [facility] Medical History Hx of skin cancer, basal cell Transaminitis Abdominal bloating Gas bloat syndrome Neck pain GERD without esophagitis Ventral hernia Diastasis recti Vitamin D deficiency Persistent atrial fibrillation Obesity (BMI 30-39.9) Carpal tunnel syndrome Osteoarthritis of knees, bilateral Obstructive sleep apnea Pure hypercholesterolemia Impaired fasting glucose Surgical History History of umbilical hernia repair (~12/08/24) Hx of colonoscopy History of surgery Family History Father CVD (cardiovascular disease) Cancer Mother Medical history unknown Social History Housing: House Are you a primary personal care home administrator to a significant other at home: No Do you presently have visiting nurse or other home services: No Alcohol intake: current Alcohol intake frequency: holidays/special occasions only Patient Tobacco Use Status: Never used Tobacco e-Cigarette/Vaping Use: Never Used Second Hand Smoke Exposure: Yes service: No Current occupational status: employed 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 Cognitive needs: No Hearing needs: No Vision needs: No Review of Systems Const Denies chills and Denies fever(s) Card Denies dyspnea Resp Denies dyspnea GI Denies abdominal pain Physical Exam Vital Signs: BMI result Body Mass Index 33.6 Const General: comfortable and no acute distress Nutritional Appearance: obese GI Other: Umbilical hernia repair site well healed, clean, not infected, repair intact Palpation (GI): Soft to palpation, not firm, nontender and no guarding Assessment & Plan Assessment & Plan (1) Umbilical hernia: Code(s): K42.9 - Umbilical hernia without obstruction or gangrene Category: Medical Qualifiers: Obstruction and gangrene presence: without obstruction or gangrene Qualified Code(s): K42.9 - Umbilical hernia without obstruction or gangrene Plan: Status post repair with mesh. He is doing very well. The repair site is intact. I advised him to avoid lifting anything more than 20 lb for about 2 more weeks. He can otherwise follow up with me on a p.r.n. basis I counseled him on the benefits of weight loss. Coding Level of Care Code Global (87154) Diagnoses Umbilical hernia without obstruction and without gangrene K42.9 Obstruction and gangrene presence: without obstruction or gangrene
[2024-12-21 08:48] VITALS: BMI 33.6
== END 2024-12-21 09:02 | disposition home or self-care (01) ==
LOC: HO.HGS 08:33
PROVIDERS: PCP Internal Medicine; Visit Provider Surgery
DX: K42.9 Umbilical hernia without obstruction or gangrene (principal)
CPT/HCPCS: 99212